=== PATIENT | male | born 1945 | race Caucasian/White ===

== ENCOUNTER 2019-08-15 01:04 | Emergency (ER) | payer MEDICARE, SELFPAY ==
--- NOTE | 2019-08-15 01:14 | ED_ITS ---
Entered by Yelena Horton, acting as scribe for HPI - General Adult General: Chief complaint: Skin/Abscess/Foreign Body Stated complaint: PAINFUL RASH Time Seen by Provider: 08/15/19 01:13 Source: patient Mode of arrival: ambulatory Limitations: no limitations History of Present Illness: HPI narrative: Kristopher is a very nice 74-year-old male who comes in complaining of a rash to his upper chest. Is been present for about 2 days. He describes it is painful and itching. Patient states it could be something he is come in contact with but he is unaware of what that could be for certain. He denies any fevers or chills, nausea vomiting but he states that rash is painful and itching. It is located on both sides of his chest. MD complaint: rash Onset (ago): day(s) (yesterday) Location: neck and chest Radiation: non-radiation Severity: moderate Pain Consistency: constant Relieving factors: none Exacerbating factors: none Associated symptoms: Reports no associated symptoms; Deny chest pain, confusion, diaphoresis, dyspnea, headache(s), malaise, nausea, palpitations, syncope or vomiting Treatments prior to arrival: none Review of Systems General: Reports: other (negative unless marked) Const: Denies: fever, chills, body aches, fatigue, malaise or diaphoresis Eyes: Denies: change in vision or blurry vision ENMT: Denies: throat pain, painful swallowing, hoarseness, ear pain, ear discharge, Change in hearing or nasal discharge Card: Denies: chest pain, palpitations, irregular heart rhythm, syncope, pre- syncope, shortness of breath on exertion or shortness of breath when lying down Resp: Denies: shortness of breath, productive cough, non-productive cough, wheezing, coughing up blood or chest congestion GI: Denies: abdominal pain, nausea, vomiting, vomiting blood, coffee grounds in vomit, diarrhea, constipation, cramping, blood in stool or black tarry stool : Denies: flank pain, difficulty urinating, painful urination, urinary frequency, urinary urgency, decreased urine ouput, urinary incontinence or blood in urine Musc: Denies: neck pain, back pain, extremity pain, extremity swelling, joint pain, joint swelling, joint warmth or joint stiffness Neuro: Denies: headache, numbness in extremities, weakness in extremities, changes in sensation, lack of coordination, difficulty walking, dizziness, vertigo or confusion Endo: Denies: excessive thirst, tired all the time, cold intolerance, excessive sweating, flushing or hot flashes Nick/Lymph: Denies: easy bruising, easy bleeding, petechiae or enlarged lymph nodes All/Imm: Denies: hives, throat swelling, tongue swelling, facial swelling or acute wheezing PFSH ED PFSH: Statuses (acute, chronic, etc) shown below reflect problem list status as previously entered and may not be historically accurate Medical History History of multiple sclerosis (Acute) Social History Smoking and tobacco status: former smoker Physical Exam Const: COMMON NORMALS: no apparent distress, oriented x3, no limitations, healthy appearing and well nourished EXAM LIMITATIONS: no altered mental status GENERAL APPEARANCE: cooperative, well kempt and well developed ORIENTATION/CONSCIOUSNESS: Yes awake HENMT: COMMON NORMALS: normocephalic, head/scalp atraumatic, hearing grossly normal bilaterally, external ears normal, EAC's normal, external nose normal and moist oral mucous membranes HEAD & SCALP: normal to inspection, normocephalic and atraumatic FACE & SINUS: normal facial exam and face symmetric NOSE: external nose normal and nares normal EXTERNAL EAR: Yes external ears normal EXTERNAL AUDITORY CANAL: EAC's normal MOUTH: oral and palatal mucosa normal and tongue normal Eye: COMMON NORMALS: PERRL, EOMs intact bilaterally, conjunctivae normal and no scleral icterus GENERAL EYE: normal appearance of both eyes and normal light reflex CONJUNCTIVA: Yes conjunctivae normal SCLERA: sclerae normal CORNEA: Yes corneas normal PUPIL: Yes PERRL DIRECT OPHTHALMOSCOPY: Yes normal light reflex Neck/C-Spine: COMMON NORMALS: full ROM, no lymphadenopathy, supple, no meningeal signs and no JVD GENERAL: Yes normal visual inspection and Yes trachea midline CERVICAL SPINE: Yes cervical ROM normal Chest: COMMONS NORMALS: inspection of chest normal and palpation of chest normal Resp: COMMON NORMALS: normal respiratory effort, no retractions, no use of accessory muscles and clear to auscultation bilaterally EFFORT & INSPECTION: Yes able to speak in complete sentences AUSCULTATION: clear to auscultation bilaterally Cardio: COMMON NORMALS: no JVD, regular rate, regular rhythm, S1 normal heart sound, S2 normal heart sound, no gallops, no clicks, no murmurs and no rub JUGULAR VENOUS DISTENTION: no JVD RATE: regular rate RHYTHM: regular rhythm HEART SOUNDS: S1 normal and S2 normal GI: COMMON NORMALS: soft to palpation, non-tender, no hepatosplenomegaly and no masses INSPECTION: Yes normal to inspection PALPATION: Yes soft and Yes no hepatosplenomegaly : COMMON NORMALS: Yes no CVA tenderness BLADDER/KIDNEY EXAM: Yes no CVA tenderness Back/Pelvis: COMMON NORMALS: no CVA tenderness, thoracic and lumbar spine normal to inspection, no thoracic nor lumbar tenderness and thoraco-lumbar ROM normal Extremity: COMMON NORMALS: normal to inspection, full ROM, normal capillary refill, no joint enlargement, no clubbing, cyanosis or edema and no calf tenderness Neuro: COMMON NORMALS: oriented x3, CN's II-XII intact bilaterally, moves all extremities, no focal motor deficits and no sensory deficits noted MENINGEAL SIGNS: Yes no meningeal signs Psych: COMMON NORMALS: mental status grossly normal, thought process normal, cooperative, affect normal, speech normal and activity/motor behavior normal APPEARANCE: Yes well kempt SPEECH: Yes normal speech THOUGHT PROCESS: normal thought process Skin: COMMON NORMALS: no jaundice, no petechiae and no mottling GENERAL SKIN EXAM: other (Erythema versus [place] area to bilateral upper chest. No petechiae or purpura.) Course Vital Signs: Vital signs: Vital Signs Temperature 97.5 F L 08/15/19 01:15 Pulse Rate 49 L 08/15/19 01:15 Respiratory Rate 16 08/15/19 01:15 Blood Pressure 138/70 08/15/19 01:34 Pulse Oximetry 98 08/15/19 01:15 MDM - General Adult MDM Narrative: Medical decision making narrative: Kristopher comes in with a rash to his anterior chest that could be [place] area but also could be cellulitis. It is blotchy and blanches but causes discomfort and itching. I will treat empirically for infection as well as allergic reaction. The patient agrees to return should his symptoms change or worsen. Discharge Plan Discharge Patient Disposition: Home, Self-Care Clinical Impression: Cellulitis Qualifiers: Site of cellulitis: trunk Site of cellulitis of trunk: chest wall Qualified Code(s): L03.313 - Cellulitis of chest wall Contact dermatitis Qualifiers: Contact dermatitis type: unspecified Contact dermatitis trigger: unspecified trigger Qualified Code(s): L25.9 - Unspecified contact dermatitis, unspecified cause Condition: Stable Prescriptions: New Benadryl 25 mg capsule 25 mg PO Q6H PRN (Reason: allergic reaction) 5 Days Qty: 30 RF: 0 Pepcid 40 mg tablet 40 mg PO BID 5 Days Qty: 10 RF: 0 Cleocin HCl 150 mg capsule 300 mg PO Q6H 10 Days Qty: 80 RF: 0 No Action atorvastatin 10 mg tablet 10 mg PO DAILY RF: 0 sertraline 100 mg tablet 100 mg PO DAILY RF: 0 baclofen 10 mg tablet 10 mg PO DAILY RF: 0 memantine 10 mg tablet 10 mg PO DAILY RF: 0 Discharge Orders: Discharge Order (Routine); Ordered 08/15/19 Ordered By: Marielle Fleming Referrals: Parmjit Sanchez MD [Primary Care Provider] - 1-3 days Discharge Diet: Usual diet Discharge Activity: Increase activity as tolerated Patient Instructions: Allergic Reaction, Urticaria (ED), Cellulitis (ED) Activity Restrictions/Additional Instructions: Please return to the ER immediately for any of the signs or symptoms listed on your discharge instruction sheets, worsening/changing of your symptoms, you are not getting better as quickly as expected, or for ANY other cause or concerns. Take medications as directed. Return to the ER for any worsening of your symptoms or for any other cause for concern. Discharge Date/Time: 08/15/19 01:37 Coding Level of Care Code ED Packaging Associate for Chg Fwd Exam Problem Focused The documentation recorded by the Clifford corbin Bridget Annette, accurately reflects the service I personally performed and the decisions made by Bernadette daley Eli N Aug 15, 2019 01:04
[2019-08-15 01:15] VITALS: BP 133/70; PULSE 49; RESP 16; TEMP 36.4; O2SAT 98; BMI 20.3
[2019-08-15] MEDS: predniSONE 20 mg Tablet 40 MG PO (01:33)
[2019-08-15] MEDS: clindamycin 150 mg Capsule 300 MG PO (01:33)
[2019-08-15] MEDS: famotidine 20 mg Tablet 40 MG PO (01:33)
[2019-08-15] MEDS: diphenhydrAMINE 50 mg Capsule PO (01:33)
[2019-08-15 01:34] VITALS: BP 138/70
== END 2019-08-15 01:37 | disposition home or self-care (01) ==
PROVIDERS: Emergency Provider Emergency Medicine; Family Provider Family Medicine; PCP Family Medicine
DX: L03.313 Cellulitis of chest wall (principal); L25.9 Unspecified contact dermatitis, unspecified cause; G35 Multiple sclerosis; Z87.891 Personal history of nicotine dependence
CPT/HCPCS: 99281; J7512; Q0163

== ENCOUNTER 2020-02-17 22:54 | Observation (INO) | payer MEDICARE, SELFPAY ==
[2020-02-17 23:00] VITALS: BP 119/75; PULSE 88; RESP 18; TEMP 36.6; O2SAT 97; BMI 19.5
--- NOTE | 2020-02-17 23:27 | ED_ITS ---
Documented by User: [email or web address] Mao 02/18/20 04:14 HPI - Fall General: Chief Complaint: Fall Stated Complaint: BACK PAIN POST FALL Time Seen by Provider: 02/17/20 23:26 History of Present Illness: HPI Narrative: Patient is a 74-year-old male who comes to the ED via EMS after having a fall. Past medical history of GERD, asthma, MS and hyperlipidemia and impairment cognitive dysfunction. Patient states that he tripped and hit his right shoulder on table. Denies any pain currently. Patient appears to be a poor historian and is brief and giving a lot of no answers. He appears to have an altered mental status and is confused. Patient denies head injury, loss of consciousness, abdominal pain, nausea/vomiting, bladder or bowel symptoms. Associated symptoms-after fall: Denies abdominal pain, chest pain, headache(s), hematuria or neck pain Review of Systems Narrative: Patient denies any other symptoms. Const: Reports: other (Fall); Denies: fever(s), chills or fatigue Eyes: Denies: change in vision or eye discomfort ENMT: Denies: throat pain, odynophagia, nasal discharge or nasal congestion Card: Denies: chest pain, palpitations, edema, swelling of feet/ankles, dyspnea on exertion or orthopnea Resp: Denies: dyspnea, productive cough or non-productive cough GI: Denies: abdominal pain, nausea, vomiting, diarrhea, constipation or hematochezia : Denies: flank pain, difficulty urinating, dysuria or hematuria Musc: Denies: neck pain, back pain or extremity swelling Skin/Breast: Denies: rash or new lesions Neuro: Denies: headache(s), numbness in extremities or weakness in extremities PFSH ED PFSH: Medical History Asthma Cancer of sebaceous glands Chalazion Dysuria Esophageal reflux Gastroesophageal reflux disease Glaucoma History of multiple sclerosis Hypercholesterolemia Hyperlipidemia Impairment of cognitive function Multiple sclerosis Pyoderma Sacroiliitis Viral warts Family History Other CAD (coronary artery disease) Cancer Diabetes Denies family history of Clotting disorder Dementia Hyperlipidemia Psychiatric illness Chronic kidney disease (CKD) Suicide Anesthesia complication Bleeding disorder Family history of premature coronary artery disease Lung disease Hypertension Stroke Social History Smoking and tobacco status: former smoker Physical Exam Narrative: EXAM NARRATIVE: Patient is a 74-year-old male that is lying in the bed comfortably when I enter the room. He currently smells of urine. He is in no acute distress or pain but he does appear very frail. After asking him questions he does appear to have some confusion and is unable to answer some of my orientation questions. Const: COMMON NORMALS: alert EXAM LIMITATIONS: altered mental status (Patient was unable to perform some of my directions during physical exam and was not able to answer some questions.) GENERAL APPEARANCE: cooperative and frail appearing NUTRITIONAL APPEARANCE: cachectic ORIENTATION/CONSCIOUSNESS: Yes oriented to person HENMT: COMMON NORMALS: normocephalic HEAD & SCALP: normocephalic MOUTH: Normal oral and palatal mucosa present THROAT: posterior oropharynx normal and uvula midline Eye: COMMON NORMALS: Equal, round and reactive pupils present PUPIL: Yes Equal, round and reactive pupils present Neck/C-Spine: COMMON NORMALS: supple GENERAL: Yes normal visual inspection Resp: COMMON NORMALS: normal respiratory effort, No retractions, No use of accessory muscles and clear to auscultation bilaterally AUSCULTATION: clear to auscultation bilaterally Cardio: COMMON NORMALS: regular rate, regular rhythm, S1 normal heart sound present, S2 normal heart sound present, No gallops present (Cardio), No clicks present (Cardio), No murmurs present (Cardio) and Peripheral pulses 2+ throughout RATE: regular rate RHYTHM: regular rhythm HEART SOUNDS: S1 normal heart sound present and S2 normal heart sound present PERIPHERAL PULSES: Peripheral pulses 2+ throughout GI: COMMON NORMALS: Normal to inspection, nondistended, normoactive bowel sounds present, Soft to palpation, non-tender and no masses PALPATION: Yes Soft to palpation : COMMON NORMALS: Yes no CVA tenderness BLADDER/KIDNEY EXAM: Yes no CVA tenderness Back/Pelvis: COMMON NORMALS: no CVA tenderness Neuro: COMMON NORMALS: CN's II-XII intact bilaterally, moves all extremities, no focal motor deficits and no sensory deficits noted SENSORIUM/ORIENTATION: Yes alert, Yes oriented to person, Yes Orientation impaired (Patient is alert and oriented to person but is not oriented to place or time currently. He was unable to answer any time or place questions.) and Yes other (Patient also struggled to perform some physical exam test such as mhwsyb-jn-twva test. He was able to perform it with his right arm but when I told him to perform test with his left hand he touched my finger and did not touch his nose after telling him to do so repeatedly.) COORDINATION/BALANCE: No ahxecy-ka-fvjr test normal (Patient was able to perform lkxkov-fq-wtex test with right hand, but when a) SENSORY EXAM: Yes extremities (intact) MOTOR EXAM: 5/5 motor strength present throughout COORDINATION: dnxtnn-dn-xvmj test abnormal (Patient was able to perform ozljnq-ih-jlwk test with right hand, but when a) OTHER: Patient struggled following some of my directions during the neurological exam. He appeared confused. Skin: GENERAL SKIN EXAM: dry skin Course ED course: I tried contacting his via her preferred contact number to discuss patient's past health issues and current fall. She did not answer the phone. Vital Signs: Vital signs: Vital Signs Temperature 97.8 F 02/17/20 23:00 Pulse Rate 64 02/18/20 03:16 Respiratory Rate 18 02/18/20 03:16 Blood Pressure 105/81 02/18/20 03:16 Pulse Oximetry 95 02/18/20 03:16 MDM - Fall MDM Narrative: Medical decision making narrative: Patient care is being handed over to Dr. Fleming. He will now be taking over patient care and management. Lab Data: Attestation: I reviewed the patient's lab results. Labs: Lab Results 02/17/20 02/17/20 02/17/20 Range/Units 00:12 00:12 00:12 WBC 18.5 H (4.0-10.0) 10^3/ uL RBC 5.07 (4.1-5.3) 10^6/u L Hgb 15.2 (11.7-16.6) g/dL Hct 48.7 (42.0-52.0) % MCV 96.1 H (80-94) fL MCH 30.0 (28.0-34.0) pg MCHC 31.2 (30.0-36.0) g/dL RDW 13.2 (12.1-15.1) % Plt Count 141 (130-400) 10^3/c mm MPV 11.4 H (7.4-10.4) fL Neut % (Auto) 89.0 % Lymph % (Auto) 2.9 % [place] % (Auto) 7.3 % Eos % (Auto) 0.0 % Baso % (Auto) 0.3 % Neut # (Auto) 16.44 H (1.8-7.7) 10^3/u L Lymph # (Auto) 0.5 L (0.8-4.8) 10^3/u L [place] # (Auto) 1.4 H (0.2-0.9) 10^3/u L Eos # (Auto) 0.0 (0.0-0.8) 10^3/u L Baso # (Auto) 0.1 (0.0-0.1) 10^3/u L Nucleated RBC % (a uto) 0 % Nucleated RBCs # 0.0 /100WBC Specimen Type Sample Site ABG pH (7.35-7.45) ABG pCO2 (35-45) mmHg ABG pO2 (80.0-100.0) mmH g ABG HCO3 (22-26) mmol/L ABG O2 Saturation ABG Base Excess (-2.0-2.0) mmol/ L Adam Test A-a O2 Gradient (5-10) mmHg Hematocrit (42-52) % Hgb O2 Saturation (95-100) % Carboxyhemoglobin (0.4-20.1) %THgb Methemoglobin (0.4-1.5) % Total Hemoglobin (14-18) g/dL Ionized Calcium (1.1-1.4) mmol/L O2 Delivery Device FiO2 % Ssis Architect ID Sodium 141 (136-145) mmol/L Potassium 3.9 (3.5-5.1) mmol/L Chloride 103 (98-107) mmol/L Carbon Dioxide 28 (22-29) mmol/L Anion Gap 13.9 (5-19) BUN 24 H (8-23) mg/dL Creatinine 1.0 (0.7-1.2) mg/dL GFR Calculation Not Reportable Glucose 147 H (65-115) mg/dL Calculated Osmolal ity 291 (285-295) mOsm/k g Lactic Acid 2.2 (0.5-2.2) mmol/L Calcium 8.7 (8.5-10.5) mg/dL Total Bilirubin 0.8 (0.15-1.2) mg/dL AST 23 (0-40) U/L ALT 15 (0-41) U/L Alkaline Phosphata se 75 (40-130) IU/L Troponin T Baselin e (0-15) ng/L Troponin T 120 Min [place] (0-15) ng/L Delta Troponin T (0-10) ABS# Total Protein 7.4 (6.6-8.7) g/dL Albumin 3.7 (3.5-5.2) g/dL Globulin 3.7 (1.3-4.6) g/dL Ethyl Alcohol < 10 (0-10) mg/dL 02/17/20 02/17/20 02/18/20 Range/Units 00:12 00:33 01:40 WBC (4.0-10.0) 10^3/ uL RBC (4.1-5.3) 10^6/u L Hgb (11.7-16.6) g/dL Hct (42.0-52.0) % MCV (80-94) fL MCH (28.0-34.0) pg MCHC (30.0-36.0) g/dL RDW (12.1-15.1) % Plt Count (130-400) 10^3/c mm MPV (7.4-10.4) fL Neut % (Auto) % Lymph % (Auto) % [place] % (Auto) % Eos % (Auto) % Baso % (Auto) % Neut # (Auto) (1.8-7.7) 10^3/u L Lymph # (Auto) (0.8-4.8) 10^3/u L [place] # (Auto) (0.2-0.9) 10^3/u L Eos # (Auto) (0.0-0.8) 10^3/u L Baso # (Auto) (0.0-0.1) 10^3/u L Nucleated RBC % (a uto) % Nucleated RBCs # /100WBC Specimen Type Arterial Sample Site Brachial, right ABG pH 7.43 (7.35-7.45) ABG pCO2 38.1 (35-45) mmHg ABG pO2 70.1 L (80.0-100.0) mmH g ABG HCO3 25.2 (22-26) mmol/L ABG O2 Saturation 95.4 ABG Base Excess 1.0 (-2.0-2.0) mmol/ L Adam Test N/a A-a O2 Gradient 4.2 L (5-10) mmHg Hematocrit 47.2 (42-52) % Hgb O2 Saturation 93.6 L (95-100) % Carboxyhemoglobin 1.1 (0.4-20.1) %THgb Methemoglobin 0.9 (0.4-1.5) % Total Hemoglobin 15.4 (14-18) g/dL Ionized Calcium 1.2 (1.1-1.4) mmol/L O2 Delivery Device Room air FiO2 21.0 % Ssis Architect ID Darius Sodium 143.0 (136-145) mmol/L Potassium 3.9 (3.5-5.1) mmol/L Chloride (98-107) mmol/L Carbon Dioxide (22-29) mmol/L Anion Gap (5-19) BUN (8-23) mg/dL Creatinine (0.7-1.2) mg/dL GFR Calculation Glucose 141.0 H (65-115) mg/dL Calculated Osmolal ity (285-295) mOsm/k g Lactic Acid (0.5-2.2) mmol/L Calcium (8.5-10.5) mg/dL Total Bilirubin (0.15-1.2) mg/dL AST (0-40) U/L ALT (0-41) U/L Alkaline Phosphata se (40-130) IU/L Troponin T Baselin e 15 (0-15) ng/L Troponin T 120 Min [place] 14.77 (0-15) ng/L Delta Troponin T -0.23 L (0-10) ABS# Total Protein (6.6-8.7) g/dL Albumin (3.5-5.2) g/dL Globulin (1.3-4.6) g/dL Ethyl Alcohol (0-10) mg/dL Imaging Data^: CT Head: Attestation: I personally reviewed and interpreted this imaging study as follows: Radiologist's impression: [address] [address] [address] Scan Report Signed Patient: Kristopher Linda Unit #: [id number] : 1945 [facility]#:[id number] Age/Sex: 74 / M ADM Date: 02/17/20 Loc: ER Room/Bed: Attending Dr: Ordering Provider/Ordering MD: Santana Valdovinos Date of Service: 02/17/20 Procedure(s): CT head wo con* [id number] Accession Number(s): [id number] Report Number: [id number] PROCEDURE INFORMATION: Exam: CT Head Without Contrast Exam date and time: 02/17/2020 11:45 PM Age: 74 years old Clinical indication: Altered mental status/memory loss; Additional info: Fall with AMS TECHNIQUE: Imaging protocol: Computed tomography of the head without contrast. Radiation optimization: All CT scans at this facility use at least one of these dose optimization techniques: automated exposure control; mA and/or kV adjustment per patient size (includes targeted exams where dose is matched to clinical indication); or iterative reconstruction. COMPARISON: No relevant prior studies available. RADIATION DOSE METRICS: Total DLP (mGy-cm): 1379.96 FINDINGS: Brain: No acute intracranial hemorrhage or mass effect. There is decreased attenuation in the periventricular white matter, likely from microvascular disease. Areas of chronic encephalomalacia in the inferior frontal lobes bilaterally. These likely represent sequela of infarcts or other prior/remote brain injury. No definite acute infarct by CT. MRI could be more sensitive/specific for detection, as clinically directed. Ventricles: Ventricle size is normal for age. Bones/joints: No definite acute skull fracture. Sinuses: Included paranasal sinuses are essentially clear. Mastoid air cells: No significant acute finding. CT/CT head wo con* [id number] IMPRESSION: 1. No acute intracranial hemorrhage or mass effect. 2. Changes of microvascular disease. 3. Areas of chronic encephalomalacia in the inferior frontal lobes bilaterally. 4. No definite acute infarct by CT, see above. 5. Other findings discussed above. Radiation Dose CTDIVOL = (mGy): DLP = 1379.96 (mGy-cm) Dictated By: Fredrick Goldberg MD Signed By: Fredrick Goldberg MD Signed Date/Time: 02/18/20254 DD/ 2 CXR: Attestation: I personally reviewed and interpreted this imaging study as follows: My impression: No pneumonia or lung infiltrates seen. Patient's heart appears enlarged. Pending final radiology report. Other CT: Attestation: I personally reviewed and interpreted this imaging study as fo llows: Radiologist's impression: [facility] [address] [facility] [place] [address] CT Scan Report Signed Patient: Kristopher Linda Unit #: [id number] : 1945 Age/Sex: 74 / M ADM Date: 02/17/20 Loc: ER Room/Bed: Attending Dr: Ordering Provider/Ordering MD: Santana Valdovinos Date of Service: 02/18/20 Procedure(s): CT chest abd pel w con* Accession Number(s): [id number] Report Number: [id number] PROCEDURE INFORMATION: Exam: CT Chest With Contrast Exam date and time: 02/18/2020 1:15 AM Age: 74 years old Clinical indication: Abdominal pain; Generalized; Chest pain; Type not specified; Additional info: AMS TECHNIQUE: Imaging protocol: Computed tomography of the chest with intravenous contrast. Radiation optimization: All CT scans at this facility use at least one of these dose optimization techniques: automated exposure control; mA and/or kV adjustment per patient size (includes targeted exams where dose is matched to clinical indication); or iterative reconstruction. Contrast material: VISI; Contrast volume: 75 ml; Contrast route: INTRAVENOUS (IV); COMPARISON: No relevant prior studies available. Correlation to chest radiograph from December 2019. RADIATION DOSE METRICS: Total DLP (mGy-cm): 1387.6 FINDINGS: Lungs: Coarsening of pulmonary interstitial markings bilaterally with basilar predominance. Pleural space: Unremarkable. No pneumothorax. No pleural effusion. Heart: Coronary calcifications are noted. Mediastinal space: Moderate to large hiatal hernia. Aorta: Unremarkable. No aortic aneurysm. Lymph nodes: Unremarkable. No enlarged lymph nodes. Bones/joints: Mild compression of T12 suspected to be acute. Healed or healing rib fractures. Soft tissues: Unremarkable. IMPRESSION: Mild compression of T12 vertebral body suspected to be acute. Pulmonary interstitial disease is likely chronic. PROCEDURE INFORMATION: Exam: CT Abdomen And Pelvis With Contrast Exam date and time: 02/18/2020 1:15 AM Age: 74 years old Clinical indication: Abdominal pain; Generalized; Chest pain; Type not specified; Additional info: AMS TECHNIQUE: Imaging protocol: Computed tomography of the abdomen and pelvis with intravenous contrast. Radiation optimization: All CT scans at this facility use at least one of these dose optimization techniques: automated exposure control; mA and/or kV adjustment per patient size (includes targeted exams where dose is matched to clinical indication); or iterative reconstruction. Contrast material: VISI; Contrast volume: 75 ml; Contrast route: INTRAVENOUS (IV); COMPARISON: No relevant prior studies available. RADIATION DOSE METRICS: Total DLP (mGy-cm): 1387.6 FINDINGS: Liver: Normal. No mass. Gallbladder and bile ducts: Normal. No calcified stones. No ductal dilation. Pancreas: Normal. No ductal dilation. Spleen: Normal. No splenomegaly. Adrenals: Normal. No mass. Kidneys and ureters: Fluid containing structures at renal sinuses are favored to represent cysts although collecting system dilation is difficult to exclude. Benign cortical cysts are also noted with largest measuring approximately 4 cm. Stomach and bowel: Unremarkable. No obstruction. No mucosal thickening. Appendix: No evidence of appendicitis. Intraperitoneal space: Unremarkable. No free air. No significant fluid collection. Vasculature: Unremarkable. No abdominal aortic aneurysm. Lymph nodes: Unremarkable. No enlarged lymph nodes. Bladder: Multilobulated fluid containing structure arising from pelvis likely represents severely distended urinary bladder with diverticular changes. Reproductive: Unremarkable as visualized. Bones/joints: No acute fracture. Soft tissues: Unremarkable. CT/CT chest abd pel w con* IMPRESSION: Severe bladder distension suggested with multiple diverticuli. Other cystic abnormalities would be difficult to exclude in this setting although are considered less likely. Radiation Dose CTDIVOL = (mGy): DLP = 1387.6 1387.6 (mGy-cm) Dictated By: Davin Austin MD Signed By: Davin Austin MD Signed Date/Time: 02/18/20308 DD/ 7 EKG Data^: EKG 1: Attestation: I personally reviewed and interpreted this EKG as follows: EKG interpretation date: 02/18/20 Interpretation: Normal sinus rhythm, 86 bpm, ST segment depression seen in leads V3, V4 and V5. EKG 2: Attestation: I personally reviewed and interpreted this EKG as follows: EKG interpretation date: 02/18/20 Interpretation: Normal sinus rhythm, 72 bpm, previous ST segment depression seen on previous EKG has resolved. No other acute findings on ECG. Discharge Plan Discharge Prescriptions: No Action baclofen 10 mg tablet 10 mg PO TID Qty: 270 RF: 1 dalfampridine [Ampyra] 10 mg tablet extended release 12 hr 10 mg PO BID Qty: 60 RF: 3 memantine 10 mg tablet 10 mg PO BID Qty: 180 RF: 1 sertraline 100 mg tablet 100 mg PO DAILY Qty: 90 RF: 1 glatiramer [Copaxone] 40 mg/mL syringe 40 mg SUBCUT .THREE TIMES WEEKLY Qty: 12 RF: 4 omeprazole 20 mg capsule,delayed release(DR/EC) 20 mg PO DAILY Qty: 90 RF: 3 atorvastatin 10 mg tablet 10 mg PO DAILY RF: 0 Sign Out Sign Out Data: Patient Sign Out occurred on 02/18/20 at 04:30. Patient's care was discussed, and care was transferred from to Marielle Fleming. Coding Level of Care Code ED Insole Rasper for Chg Fwd Exam Comprehensive Documented by User: Marielle Fleming 02/18/20 04:35 HPI - Fall General: Chief Complaint: Fall Stated Complaint: BACK PAIN POST FALL Time Seen by Provider: 02/17/20 23:26 PFSH ED PFSH: Medical History Asthma Cancer of sebaceous glands Chalazion Dysuria Esophageal reflux Gastroesophageal reflux disease Glaucoma History of multiple sclerosis Hypercholesterolemia Hyperlipidemia Impairment of cognitive function Multiple sclerosis Pyoderma Sacroiliitis Viral warts Family History Other CAD (coronary artery disease) Cancer Diabetes Denies family history of Clotting disorder Dementia Hyperlipidemia Psychiatric illness Chronic kidney disease (CKD) Suicide Anesthesia complication Bleeding disorder Family history of premature coronary artery disease Lung disease Hypertension Stroke Social History Smoking and tobacco status: former smoker Course Vital Signs: Vital signs: Vital Signs Temperature 97.8 F 02/17/20 23:00 Pulse Rate 64 02/18/20 03:16 Respiratory Rate 18 02/18/20 03:16 Blood Pressure 105/81 02/18/20 03:16 Pulse Oximetry 95 02/18/20 03:16 MDM - Fall Lab Data: Labs: Lab Results 02/17/20 02/17/20 02/17/20 Range/Units 00:12 00:12 00:12 WBC 18.5 H (4.0-10.0) 10^3/ uL RBC 5.07 (4.1-5.3) 10^6/u L Hgb 15.2 (11.7-16.6) g/dL Hct 48.7 (42.0-52.0) % MCV 96.1 H (80-94) fL MCH 30.0 (28.0-34.0) pg MCHC 31.2 (30.0-36.0) g/dL RDW 13.2 (12.1-15.1) % Plt Count 141 (130-400) 10^3/c mm MPV 11.4 H (7.4-10.4) fL Neut % (Auto) 89.0 % Lymph % (Auto) 2.9 % [place] % (Auto) 7.3 % Eos % (Auto) 0.0 % Baso % (Auto) 0.3 % Neut # (Auto) 16.44 H (1.8-7.7) 10^3/u L Lymph # (Auto) 0.5 L (0.8-4.8) 10^3/u L [place] # (Auto) 1.4 H (0.2-0.9) 10^3/u L Eos # (Auto) 0.0 (0.0-0.8) 10^3/u L Baso # (Auto) 0.1 (0.0-0.1) 10^3/u L Nucleated RBC % (a uto) 0 % Nucleated RBCs # 0.0 /100WBC Specimen Type Sample Site ABG pH (7.35-7.45) ABG pCO2 (35-45) mmHg ABG pO2 (80.0-100.0) mmH g ABG HCO3 (22-26) mmol/L ABG O2 Saturation ABG Base Excess (-2.0-2.0) mmol/ L Adam Test A-a O2 Gradient (5-10) mmHg Hematocrit (42-52) % Hgb O2 Saturation (95-100) % Carboxyhemoglobin (0.4-20.1) %THgb Methemoglobin (0.4-1.5) % Total Hemoglobin (14-18) g/dL Ionized Calcium (1.1-1.4) mmol/L O2 Delivery Device FiO2 % Ssis Architect ID Sodium 141 (136-145) mmol/L Potassium 3.9 (3.5-5.1) mmol/L Chloride 103 (98-107) mmol/L Carbon Dioxide 28 (22-29) mmol/L Anion Gap 13.9 (5-19) BUN 24 H (8-23) mg/dL Creatinine 1.0 (0.7-1.2) mg/dL GFR Calculation Not Reportable Glucose 147 H (65-115) mg/dL Calculated Osmolal ity 291 (285-295) mOsm/k g Lactic Acid 2.2 (0.5-2.2) mmol/L Calcium 8.7 (8.5-10.5) mg/dL Total Bilirubin 0.8 (0.15-1.2) mg/dL AST 23 (0-40) U/L ALT 15 (0-41) U/L Alkaline Phosphata se 75 (40-130) IU/L Troponin T Baselin e (0-15) ng/L Troponin T 120 Min [place] (0-15) ng/L Delta Troponin T (0-10) ABS# Total Protein 7.4 (6.6-8.7) g/dL Albumin 3.7 (3.5-5.2) g/dL Globulin 3.7 (1.3-4.6) g/dL Ethyl Alcohol < 10 (0-10) mg/dL 02/17/20 02/17/20 02/18/20 Range/Units 00:12 00:33 01:40 WBC (4.0-10.0) 10^3/ uL RBC (4.1-5.3) 10^6/u L Hgb (11.7-16.6) g/dL Hct (42.0-52.0) % MCV (80-94) fL MCH (28.0-34.0) pg MCHC (30.0-36.0) g/dL RDW (12.1-15.1) % Plt Count (130-400) 10^3/c mm MPV (7.4-10.4) fL Neut % (Auto) % Lymph % (Auto) % [place] % (Auto) % Eos % (Auto) % Baso % (Auto) % Neut # (Auto) (1.8-7.7) 10^3/u L Lymph # (Auto) (0.8-4.8) 10^3/u L [place] # (Auto) (0.2-0.9) 10^3/u L Eos # (Auto) (0.0-0.8) 10^3/u L Baso # (Auto) (0.0-0.1) 10^3/u L Nucleated RBC % (a uto) % Nucleated RBCs # /100WBC Specimen Type Arterial Sample Site Brachial, right ABG pH 7.43 (7.35-7.45) ABG pCO2 38.1 (35-45) mmHg ABG pO2 70.1 L (80.0-100.0) mmH g ABG HCO3 25.2 (22-26) mmol/L ABG O2 Saturation 95.4 ABG Base Excess 1.0 (-2.0-2.0) mmol/ L Adam Test N/a A-a O2 Gradient 4.2 L (5-10) mmHg Hematocrit 47.2 (42-52) % Hgb O2 Saturation 93.6 L (95-100) % Carboxyhemoglobin 1.1 (0.4-20.1) %THgb Methemoglobin 0.9 (0.4-1.5) % Total Hemoglobin 15.4 (14-18) g/dL Ionized Calcium 1.2 (1.1-1.4) mmol/L O2 Delivery Device Room air FiO2 21.0 % Ssis Architect ID Darius Sodium 143.0 (136-145) mmol/L Potassium 3.9 (3.5-5.1) mmol/L Chloride (98-107) mmol/L Carbon Dioxide (22-29) mmol/L Anion Gap (5-19) BUN (8-23) mg/dL Creatinine (0.7-1.2) mg/dL GFR Calculation Glucose 141.0 H (65-115) mg/dL Calculated Osmolal ity (285-295) mOsm/k g Lactic Acid (0.5-2.2) mmol/L Calcium (8.5-10.5) mg/dL Total Bilirubin (0.15-1.2) mg/dL AST (0-40) U/L ALT (0-41) U/L Alkaline Phosphata se (40-130) IU/L Troponin T Baselin e 15 (0-15) ng/L Troponin T 120 Min [place] 14.77 (0-15) ng/L Delta Troponin T -0.23 L (0-10) ABS# Total Protein (6.6-8.7) g/dL Albumin (3.5-5.2) g/dL Globulin (1.3-4.6) g/dL Ethyl Alcohol (0-10) mg/dL Discharge Plan Discharge Prescriptions: No Action baclofen 10 mg tablet 10 mg PO TID Qty: 270 RF: 1 dalfampridine [Ampyra] 10 mg tablet extended release 12 hr 10 mg PO BID Qty: 60 RF: 3 memantine 10 mg tablet 10 mg PO BID Qty: 180 RF: 1 sertraline 100 mg tablet 100 mg PO DAILY Qty: 90 RF: 1 glatiramer [Copaxone] 40 mg/mL syringe 40 mg SUBCUT .THREE TIMES WEEKLY Qty: 12 RF: 4 omeprazole 20 mg capsule,delayed release(DR/EC) 20 mg PO DAILY Qty: 90 RF: 3 atorvastatin 10 mg tablet 10 mg PO DAILY RF: 0 Sign Out Sign Out Data: Patient Sign Out occurred on 02/18/20 at 04:30. Patient's care was discussed, and care was transferred from to [facility]. Coding Level of Care Code ED Insole Rasper for Almaz Fwd Exam Comprehensive
--- NOTE | 2020-02-17 23:36 | CTR_ITS ---
PROCEDURE INFORMATION: Exam: CT Head Without Contrast Exam date and time: 02/17/2020 11:45 PM Age: 74 years old Clinical indication: Altered mental status/memory loss; Additional info: Fall with AMS TECHNIQUE: Imaging protocol: Computed tomography of the head without contrast. Radiation optimization: All CT scans at this facility use at least one of these dose optimization techniques: automated exposure control; mA and/or kV adjustment per patient size (includes targeted exams where dose is matched to clinical indication); or iterative reconstruction. COMPARISON: No relevant prior studies available. RADIATION DOSE METRICS: Total DLP (mGy-cm): 1379.96 FINDINGS: Brain: No acute intracranial hemorrhage or mass effect. There is decreased attenuation in the periventricular white matter, likely from microvascular disease. Areas of chronic encephalomalacia in the inferior frontal lobes bilaterally. These likely represent sequela of infarcts or other prior/remote brain injury. No definite acute infarct by CT. MRI could be more sensitive/specific for detection, as clinically directed. Ventricles: Ventricle size is normal for age. Bones/joints: No definite acute skull fracture. Sinuses: Included paranasal sinuses are essentially clear. Mastoid air cells: No significant acute finding. CT/CT head wo con* [id number] IMPRESSION: 1. No acute intracranial hemorrhage or mass effect. 2. Changes of microvascular disease. 3. Areas of chronic encephalomalacia in the inferior frontal lobes bilaterally. 4. No definite acute infarct by CT, see above. 5. Other findings discussed above. Radiation Dose CTDIVOL = (mGy): DLP = 1379.96 (mGy-cm)
--- NOTE | 2020-02-17 23:36 | ECG_ITS ---
[facility] Test Date: 2020-02-17 Pat Name: Kristopher Linda Department: Room: Gender: Male Tosser: : 1945 Requested By: Santana Valdovinos Order Number: [id number] Jacobson MD: Elizabeth Cade M.D. Measurements Intervals [place] Rate: 86 P: 94 DE: 151 QRS: 60 QRSD: 86 T: 47 QT: 350 QTc: 419 Interpretive Statements SINUS RHYTHM MODERATE ST DEPRESSION [0.05+ mV ST DEPRESSION] No previous ECG available for comparison Electronically Signed On 02-18-2020 12:43:36 CDT by Elizabeth Cade M.D. [id number]
--- NOTE | 2020-02-17 23:39 | XR_ITS ---
WS: [id number] PORTABLE CHEST HISTORY: fall with AMS COMPARISON: 12/17/2019 Quality of examination is significantly limited by rotation. Mild interstitial thickening at the lung bases. No pneumonia. No pleural effusion or pneumothorax. Cardiac size: Normal. Mediastinum/Aorta: Normal mediastinum. No osseous abnormality seen. XR/XR chest 1V portable [id number] IMPRESSION: Minimal interstitial thickening at the lung bases may be chronic. No pneumonia.
[2020-02-18] VITALS (12 sets, daily range): BP systolic 88–129; BP diastolic 50–89; PULSE 55–104; RESP 16–20; TEMP 36.7–37.1; O2SAT 94–100
[2020-02-18 00:35] LABS: Basophils # 0.1 10^3/uL (0.0-0.1); Basophils % 0.3 %; Hematocrit 48.7 % (42.0-52.0); Hemoglobin 15.2 g/dL (11.7-16.6); Lymphocytes # 0.5 10^3/uL (0.8-4.8); Lymphocytes % 2.9 %; Mean Corpuscular HGB Conc 31.2 g/dL (30.0-36.0); Mean Corpuscular Volume 96.1 fL (80-94); Mean Platelet Volume 11.4 fL (7.4-10.4); Monocytes # 1.4 10^3/uL (0.2-0.9); Monocytes % 7.3 %; Neutrophils # 16.44 10^3/uL (1.8-7.7); Nucleated Red Blood Cells % 0 %; Platelet Count 141 10^3/cmm (130-400); Red Blood Count 5.07 10^6/uL (4.1-5.3); Red Cell Distribution Width 13.2 % (12.1-15.1); White Blood Count 18.5 10^3/uL (4.0-10.0)
[2020-02-18 00:47] LABS: ABG PCO2 38.1 mmHg (35-45); ABG PH Result 7.43 (7.35-7.45); Alveolar-Arterial Oxygen Gradi 4.2 mmHg (5-10); Arterial Blood Gas Hematocrit 47.2 % (42-52); Blood Gas Operator Identificat JB; Blood Gas Sample Site Brachial, right; Blood Gas Sample Type Arterial; Carboxyhemoglobin 1.1 %THgb (0.4-20.1); HCO3 ABG 25.2 mmol/L (22-26); HGB O2 Sat 93.6 % (95-100); Ionized Calcium Level - ABG 1.2 mmol/L (1.1-1.4); Methemoglobin 0.9 % (0.4-1.5); Oxygen Device ROOM AIR; Oxygen Saturation ABG 95.4; PO2 ABG 70.1 mmHg (80.0-100.0); Potassium Level - ABG 3.9 mmol/L (3.5-5.0); Total Hemoglobin 15.4 g/dL (14-18)
[2020-02-18 00:56] LABS: Alanine Aminotransferase 15 U/L (0-41); Albumin Level 3.7 g/dL (3.5-5.2); Alkaline Phosphatase 75 IU/L (40-130); Anion Gap 13.9 (5-19); Aspartate Amino Transferase 23 U/L (0-40); Blood Urea Nitrogen 24 mg/dL (8-23); Calcium 8.7 mg/dL (8.5-10.5); Carbon Dioxide 28 mmol/L (22-29); Chloride 103 mmol/L (98-107); Globulin 3.7 g/dL (1.3-4.6); Glucose 147 mg/dL (65-115); Osmolality Calculated 291 mOsm/kg (285-295); Potassium 3.9 mmol/L (3.5-5.1); Sodium 141 mmol/L (136-145); Total Bilirubin 0.8 mg/dL (0.15-1.2); Total Protein 7.4 g/dL (6.6-8.7)
[2020-02-18 00:57] LABS: Lactic Sepsis W/Reflex 2.2 mmol/L (0.5-2.2)
[2020-02-18 00:59] LABS: Alcohol Level < 10 mg/dL (0-10); Troponin(5th) Baseline 15 ng/L (0-15)
--- NOTE | 2020-02-18 01:13 | CTR_ITS ---
PROCEDURE INFORMATION: Exam: CT Chest With Contrast Exam date and time: 02/18/2020 1:15 AM Age: 74 years old Clinical indication: Abdominal pain; Generalized; Chest pain; Type not specified; Additional info: AMS TECHNIQUE: Imaging protocol: Computed tomography of the chest with intravenous contrast. Radiation optimization: All CT scans at this facility use at least one of these dose optimization techniques: automated exposure control; mA and/or kV adjustment per patient size (includes targeted exams where dose is matched to clinical indication); or iterative reconstruction. Contrast material: VISI; Contrast volume: 75 ml; Contrast route: INTRAVENOUS (IV); COMPARISON: No relevant prior studies available. Correlation to chest radiograph from December 2019. RADIATION DOSE METRICS: Total DLP (mGy-cm): 1387.6 FINDINGS: Lungs: Coarsening of pulmonary interstitial markings bilaterally with basilar predominance. Pleural space: Unremarkable. No pneumothorax. No pleural effusion. Heart: Coronary calcifications are noted. Mediastinal space: Moderate to large hiatal hernia. Aorta: Unremarkable. No aortic aneurysm. Lymph nodes: Unremarkable. No enlarged lymph nodes. Bones/joints: Mild compression of T12 suspected to be acute. Healed or healing rib fractures. Soft tissues: Unremarkable. IMPRESSION: Mild compression of T12 vertebral body suspected to be acute. Pulmonary interstitial disease is likely chronic. PROCEDURE INFORMATION: Exam: CT Abdomen And Pelvis With Contrast Exam date and time: 02/18/2020 1:15 AM Age: 74 years old Clinical indication: Abdominal pain; Generalized; Chest pain; Type not specified; Additional info: AMS TECHNIQUE: Imaging protocol: Computed tomography of the abdomen and pelvis with intravenous contrast. Radiation optimization: All CT scans at this facility use at least one of these dose optimization techniques: automated exposure control; mA and/or kV adjustment per patient size (includes targeted exams where dose is matched to clinical indication); or iterative reconstruction. Contrast material: VISI; Contrast volume: 75 ml; Contrast route: INTRAVENOUS (IV); COMPARISON: No relevant prior studies available. RADIATION DOSE METRICS: Total DLP (mGy-cm): 1387.6 FINDINGS: Liver: Normal. No mass. Gallbladder and bile ducts: Normal. No calcified stones. No ductal dilation. Pancreas: Normal. No ductal dilation. Spleen: Normal. No splenomegaly. Adrenals: Normal. No mass. Kidneys and ureters: Fluid containing structures at renal sinuses are favored to represent cysts although collecting system dilation is difficult to exclude. Benign cortical cysts are also noted with largest measuring approximately 4 cm. Stomach and bowel: Unremarkable. No obstruction. No mucosal thickening. Appendix: No evidence of appendicitis. Intraperitoneal space: Unremarkable. No free air. No significant fluid collection. Vasculature: Unremarkable. No abdominal aortic aneurysm. Lymph nodes: Unremarkable. No enlarged lymph nodes. Bladder: Multilobulated fluid containing structure arising from pelvis likely represents severely distended urinary bladder with diverticular changes. Reproductive: Unremarkable as visualized. Bones/joints: No acute fracture. Soft tissues: Unremarkable. CT/CT chest abd pel w con* IMPRESSION: Severe bladder distension suggested with multiple diverticuli. Other cystic abnormalities would be difficult to exclude in this setting although are considered less likely. Radiation Dose CTDIVOL = (mGy): DLP = 1387.6~1387.6 (mGy-cm)
--- NOTE | 2020-02-18 01:36 | ECG_ITS ---
[facility] Test Date: 2020-02-18 Pat Name: Kristopher Linda Department: Room: Gender: Male Medical Technologist Chemistry: : 1945 Requested By: Santana Valdovinos Order Number: [id number] Jacobson MD: Elizabeth Cade M.D. Measurements Intervals [place] Rate: 72 P: 79 MN: 169 QRS: 45 QRSD: 84 T: 37 QT: 384 QTc: 421 Interpretive Statements SINUS RHYTHM Compared to ECG 02/17/2020 23:48:18 ST (T wave) deviation no longer present Electronically Signed On 02-18-2020 12:50:13 CDT by Elizabeth Cade M.D. [id number]
[2020-02-18] MEDS: sodium chloride 0.9% 1,000 ML 100 ML IV ×3 (02:00→19:35)
[2020-02-18 02:02] LABS: Reflex Lactate Order REFLEX LACTIC ORDERD
[2020-02-18 02:25] LABS: Troponin 5 2HR 14.77 ng/L (0-15)
[2020-02-18 02:40] LABS: Troponin 5 2HR Delta -0.23 ABS# (0-10)
[2020-02-18] MEDS: sodium chloride 0.9% 1,000 ML 999 ML IV ×2 (02:57→02:58)
[2020-02-18] MEDS: levofloxacin-dextrose 5 % 750 MG/150 ML PREMIX 100 MG IV (04:41)
[2020-02-18 04:59] LABS: Add Urine Microscopic? YES; Amphetamines Screen Urine Negative (Negative); Barbiturates Screen Urine Negative (Negative); Benzodiazepines Screen Urine Negative (Negative); Bilirubin Urine Neg (NEGATIVE); Blood Urine 3+ (Negative); Cocaine Screen Urine Negative (Negative); Glucose Urine UA Norm (Normal); Ketones Urine Negative (Negative); Leukocyte Esterase Urine 2+ (Negative); Nitrate Urine Negative (Negative); Opiate Screen Urine Negative (Negative); PCP Screen Urine Negative (Negative); Protein Urine 1+ (Negative); THC Screen Urine Negative (Negative); Urine Appearance Cloudy (CLEAR); Urine Color Yellow (Yellow); Urobilinogen Urine Norm (Negative); pH Urine 5 (5-7)
[2020-02-18 05:00] LABS: Add Urine Culture? Yes; Bacteria Urine 1+; Squamous Epithelial Cell Urine 0-4 (0-5); WBC Urine >100 /hpf (0-5)
--- NOTE | 2020-02-18 05:04 | P.HP_ITS ---
Providers/Chief Complaint Primary Care Provider: Parmjit Sanchez MD Chief Complaint: BACK PAIN POST FALL History of Present Illness Kristopher Linda is a 74 year old male who presents with history of several falls in the last week. Patient is a very poor historian secondary to dementia and who I was able to contact by phone gives part of the history. She was concerned after this last fall that he could not walk secondary to pain. He usually uses a walker. He was complaining of some mid to low back pain. Currently the patient denies any pain but when he moves, he appears uncomfortable. No history of fevers. reports he has been incontinent for years. Significant urinary retention found in the ER with a urinary tract infection so catheter was placed. Review of Systems General: Reports: 10 or more systems reviewed and unremarkable except in HPI and below Const: Denies: fever(s) or chills Eyes: Denies: change in vision ENMT: Denies: throat pain Card: Denies: chest pain Resp: Denies: dyspnea GI: Denies: abdominal pain : Reports: urinary incontinence; Denies: flank pain Musc: Reports: back pain Skin/Breast: Denies: rash Neuro: Denies: headache(s) Psych: Reports: memory loss and difficulty concentrating; Denies: anxiety Endo: Denies: polyuria Nick/Lymph: Denies: easy bruising All/Imm: Denies: urticaria Medications/Allergies Home Medications Medication Instructions Recorded Confirmed Last Taken Type atorvastatin 10 mg PO DAILY 08/15/19 01/08/20 Unknown History baclofen 10 mg tablet 10 mg PO TID #270 tab 10/02/19 01/08/20 Unknown Rx dalfampridine 10 mg 10 mg PO BID #60 tab 11/25/19 01/08/20 Unknown Rx tablet,extended release,12 hr memantine 10 mg tablet 10 mg PO BID #180 tab 11/28/19 01/08/20 Unknown Rx sertraline 100 mg tablet 100 mg PO DAILY #90 tab 11/28/19 01/08/20 Unknown Rx glatiramer 40 mg/mL subcutaneous 40 mg SUBCUT .THREE TIMES WEEKLY 12/02/19 01/08/20 Unknown Rx syringe #12 ml omeprazole 20 mg capsule,delayed 20 mg PO DAILY #90 cap 12/04/19 01/08/20 Unknown Rx release Allergies Allergy/AdvReac Type Severity Reaction Status Date / Time Penicillins Allergy Unknown Verified 02/17/20 23:05 PFSH Acute PFSH: Medical History (Updated 02/18/20 @ 05:21 by Everette Donahue MD) Asthma Cancer of sebaceous glands Chalazion Dementia Depression Dysuria Esophageal reflux Gastroesophageal reflux disease Glaucoma History of multiple sclerosis Hypercholesterolemia Hyperlipidemia Impairment of cognitive function Multiple sclerosis Pyoderma Sacroiliitis Viral warts Family History Other CAD (coronary artery disease) Cancer Diabetes Denies family history of Clotting disorder Dementia Hyperlipidemia Psychiatric illness Chronic kidney disease (CKD) Suicide Anesthesia complication Bleeding disorder Family history of premature coronary artery disease Lung disease Hypertension Stroke Social History (Updated 02/18/20 @ 05:19 by Everette Donahue MD) Smoking and tobacco status: former smoker Alcohol intake: former Substance/Drug Use: never Vitals/I&O/Wt Last Vital Signs Temp 97.8 F 02/17/20 23:00 Pulse 70 02/18/20 05:03 Resp 16 02/18/20 05:03 BP 106/81 02/18/20 05:03 Pulse Ox 96 02/18/20 05:03 02/17/20 02/17/20 02/18/20 14:59 22:59 06:59 Intake Total 16.65 / 16.65 Balance 16.65 / 16.65 Weight last 48 hrs Weight 63.503 kg Physical Exam Narrative: EXAM NARRATIVE: General exam is an elderly thin appearing white m phillip, who reports his typically does everything for him. HEENT: Pupils equally round. Oropharynx clear. Neck is supple no lymphadenopathy or thyromegaly Cardiovascular regular rate and rhythm without murmur Lungs clear Abdomen is soft, positive bowel sounds. Back demonstrates a stage II decubitus, no evidence of infection demonstrates Mueller Extremities no cyanosis clubbing or edema, a few excoriations are noted. Cap refill brisk. Skin no rash. See findings above Neuro no focal deficits, memory deficit apparent but in discussion with the is likely baseline. Urinary Catheter Management^: Coude: Cath Placed During This Visit: yes Reason for Continuing Indwelling Catheter: Acute Urinary Retention or Obstruction Urinary Catheter Date of Insertion: 02/18/20 Urinary Catheter Time of Insertion: 04:30 Data : 02/17/20 00:12 02/17/20 00:12 Micro: Microbiology 02/17/20 00:12 Blood Culture - Preliminary Blood SPECIMEN COLLECTED A&P Assessment and plan (1) Fall: History of multiple falls. Physical therapy consultation. Suspect this is secondary to his MS. Contributing factors this hospitalization may be UTI. Status: Acute (2) Compression fracture: Mild T12 compression fracture Physical therapy consultation. Status: Acute (3) UTI (urinary tract infection): Initiate Rocephin Urine culture Blood culture Status: Acute (4) Urinary retention: Continue Mueller Initiate Flomax, if blood pressure improves with fluids(borderline low currently) Urology consultation as an outpatient It appears from the urine in the Mueller he had approximately 900 cc retained Status: Acute (5) Leukocytosis: Secondary to UTI Status: Acute Additional A&P Information Dementia. Continue Namenda MS. Holding medicines currently History of asthma, no symptoms currently. History of GERD, continue proton pump inhibitor Hyperlipidemia, continue statin Multiple other medical problems as outlined in his past medical history. Full code Lovenox for DVT prophylaxis Attestations Medical Necessity Statement*: Greater than 2 midnight stay for treatment of UTI, compression fracture, back pain, frequent falls, high risk for significant fracture at this point in time. Time Spent in Patient Care: Greater than 35 minutes Coding Level of Care Code Acute Automotive Service Assistant for Almaz Fwd Diagnoses Fall W19.XXXA Compression fracture UTI (urinary tract infection) N39.0 Urinary retention R33.9 Leukocytosis D72.829
[2020-02-18] MEDS: cefTRIAXone 1,000 MG in sodium chloride 0.9% (plus) 50 ML 100 MG IV (05:20)
--- NOTE | 2020-02-18 05:36 | ECG_ITS ---
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 Measurements Intervals [place] Rate: 85 P: SD: -1 QRS: 52 QRSD: 81 T: 3 QT: 380 QTc: 453 Interpretive Statements Accelerated Junctional rhythm (P waves not visible, possibly from baseline artifact) ABNORMAL RHYTHM ECG Compared to ECG 02/18/2020 01:49:30 P waves no longer visible Electronically Signed On 02-19-2020 12:29:07 CDT by Oscar Dunne M.D. [id number]
[2020-02-18 06:56] LABS: Troponin 5 6HR 16.18 ng/L (0-15)
[2020-02-18 06:57] LABS: Troponin 5 6HR Delta 1.18 ng/L (0-12)
[2020-02-18 07:31] LABS: Thyroid Stimulating Hormone 1.63 uIU/mL (0.27-4.20)
[2020-02-18 07:52] LABS: Lactate (Lactic Acid level) 1.1 mmol/L (0.5-2.2)
[2020-02-18] MEDS: sertraline 100 mg Tablet PO (08:35)
[2020-02-18] MEDS: atorvastatin 40 mg Tablet 10 MG PO (08:35)
[2020-02-18] MEDS: memantine 5 mg tablet 10 MG PO ×2 (08:35→17:17)
[2020-02-18] MEDS: pantoprazole DR 40 mg Tablet PO (08:35)
[2020-02-18] MEDS: docusate sodium 100 mg Capsule PO ×2 (08:35→17:17)
[2020-02-18] MEDS: enoxaparin 40 mg/0.4 mL Syringe SUBCUT (08:37)
[2020-02-18] MEDS: metoprolol tartrate 25 mg Tablet 12.5 MG PO (09:21)
[2020-02-18 09:22] LABS: Reflex Lactate Order REFLEX LACTIC ORDERD
[2020-02-18 09:57] LABS: Lactic Acid level (Lactate) 2.3 mmol/L (0.5-2.2)
--- NOTE | 2020-02-18 11:05 | PC.CHAP ---
Pastoral Care Encounter/Spiritual Assessment Type of Contact [] Declined construction project assistant visit [] Patient/Family/Request visit [] Outpatient visit [] Follow-up visit [] Physician referral [] Code/Alert [x] Routine visit [] Staff referral [] Actively dying [] Patient sleeping [] Family support [] [] Out of room [] Palliative care [] [x] Receiving care in room [] Pre-surgical visit [] Trauma [] Long length of stay [] ICU visit [] Other: Relational/Emotional Strength [x] Patient feels connected with others/family/visitors/staff [x] Distress [] Loneliness/isolation [] Abandonment Spirituality of Patient [x] Person of Manuela [] Attends Amish of their Manuela [x] Believes in Prayer [] Reads Bible or Orthodoxy materials [] There are Spiritual issues to be addressed Crusher Loader Equipment Operator Interventions [x] Prayer [x] Active listening [x] Non-anxious presence [x] Spiritual/emotional support [] Crisis/trauma care [x] Spiritual counseling [] Bereavement support [] Provided bereavement packet [] Provided Bible/devotional materials [] Provided toy/stuffed animal, coloring book to patient or family member [] Provided Communion [] Anointing/[place] [] Salvation [x] Completed spiritual assessment [] Other: Impact on Illness or Injury [] Angry [] Fearful [x] Anxious [] Often cries [] Exhaustion [] Unable to work [] Unable to attend pentecostal [] Unable to walk/stand [] Unable to read [] Unable to drive [] Unable to eat/drink [] Unable to sleep [] Unable to be with family [] Patient intubated [] Other: Summary Back pain, doesn't what is wrong, has tests and doesn't the kown the results, has a good attitude, has family doen't when she can go home Time spent with patient 10 mins
--- NOTE | 2020-02-18 15:42 | P.PN_ITS ---
Subjective Subjective: Interval history: no acute overnight events, Bladder distension noted on CT for which he had a Mueller placed. He is currently diuresing well. 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 Physical therapy consultation. Suspect this is secondary to his MS. Contributing factors this hospitalization may be UTI. Status: Acute (2) Compression fracture: Mild T12 compression fracture Physical therapy consultation. Status: Acute (3) UTI (urinary tract infection): Initiate Rocephin Urine culture Blood culture Status: Acute (4) Urinary retention: Continue Mueller It appears from the urine in the Mueller he had approximately 900 cc retained Status: Acute (5) Leukocytosis: Secondary to UTI Status: Acute Additional A&P Information Dementia. Continue Namenda MS. Holding medicines currently History of asthma, no symptoms currently. History of GERD, continue proton pump inhibitor Hyperlipidemia, continue statin Multiple other medical problems as outlined in his past medical history. Full code Lovenox for DVT prophylaxis Attestations Medical Necessity Statement*: Needs ongoing physical therapy evaluation and pain control from his T12 fracture. Coding Level of Care Code Acute Adult Education Manager for Chg Fwd Diagnoses Fall W19.XXXA Compression fracture UTI (urinary tract infection) N39.0 Urinary retention R33.9 Leukocytosis D72.829
[2020-02-18] MEDS: lidocaine 5% Patch 1 PATCH TOPICAL (21:07)
[2020-02-18] MEDS: HYDROcodone-acetaminophen 5-325 mg Tablet 1 TAB PO (23:32)
[2020-02-19] VITALS (9 sets, daily range): BP systolic 78–141; BP diastolic 40–78; PULSE 47–121; RESP 16–24; TEMP 35.8–37; O2SAT 95–99
[2020-02-19 02:13] LABS: Basophils % 0.1 %; Eosinophils % 0.2 %; Hematocrit 35.1 % (42.0-52.0); Hemoglobin 11.1 g/dL (11.7-16.6); Lymphocytes % 9.9 %; Mean Corpuscular HGB Conc 31.6 g/dL (30.0-36.0); Mean Corpuscular Hemoglobin 30.7 pg (28.0-34.0); Mean Platelet Volume 11.1 fL (7.4-10.4); Monocytes % 9.4 %; Neutrophils # 8.14 10^3/uL (1.8-7.7); Nucleated Red Blood Cells % 0 %; Platelet Count 104 10^3/cmm (130-400); Red Blood Count 3.62 10^6/uL (4.1-5.3); Red Cell Distribution Width 13.2 % (12.1-15.1); White Blood Count 10.2 10^3/uL (4.0-10.0)
[2020-02-19 02:34] LABS: Anion Gap 7.3 (5-19); Blood Urea Nitrogen 23 mg/dL (8-23); Calcium 7.8 mg/dL (8.5-10.5); Carbon Dioxide 26 mmol/L (22-29); Chloride 107 mmol/L (98-107); Glucose 102 mg/dL (65-115); Osmolality Calculated 279 mOsm/kg (285-295); Potassium 4.3 mmol/L (3.5-5.1); Sodium 136 mmol/L (136-145)
[2020-02-19 02:35] LABS: Magnesium 1.9 mg/dL (1.7-2.3)
--- NOTE | 2020-02-19 03:57 | ECG_ITS ---
[facility] Test Date: 2020-02-19 Pat Name: Kristopher Linda Department: Room: 251 Gender: Male Diagnostic Radiologic Technologist: : 1945 Requested By: Everette Del Cid Order Number: [id number] Kavon MD: Oscar Dunne M.D. Measurements Intervals [place] Rate: 52 P: 88 AL: 165 QRS: 51 QRSD: 86 T: 44 QT: 416 QTc: 389 Interpretive Statements SINUS BRADYCARDIA LOW QRS VOLTAGE IN EXTREMITY LEADS [QRS DEFLECTION < 0.5 mV IN LIMB LEADS] Compared to ECG 02/18/2020 06:27:20 Low QRS voltage now present Electronically Signed On 02-19-2020 17:19:09 CDT by Oscar Dunne M.D. [id number]
[2020-02-19] MEDS: cefTRIAXone 1,000 MG in sodium chloride 0.9% (plus) 50 ML 100 MG IV (05:39)
[2020-02-19] MEDS: sodium chloride 0.9% 1,000 ML 100 ML IV ×2 (05:40→18:22)
--- NOTE | 2020-02-19 08:15 | PC.CHAP ---
Pastoral Care Encounter/Spiritual Assessment Type of Contact [] Declined dishwashing machine operator visit [] Patient/Family/Request visit [] Outpatient visit [] Follow-up visit [] Physician referral [] Code/Alert [x] Routine visit [] Staff referral [] Actively dying [] Patient sleeping [] Family support [] [] Out of room [] Palliative care [] [] Receiving care in room [] Pre-surgical visit [] Trauma [] Long length of stay [] ICU visit [] Other: Relational/Emotional Strength [] Patient feels connected with others/family/visitors/staff [] Distress [] Loneliness/isolation [] Abandonment Spirituality of Patient [] Person of Manuela [] Attends Muslim of their Manuela [] Believes in Prayer [] Reads Bible or Druze materials [] There are Spiritual issues to be addressed Loading Inspector Interventions [x] Prayer [x] Active listening [x] Non-anxious presence [x] Spiritual/emotional support [] Crisis/trauma care [] Spiritual counseling [] Bereavement support [] Provided bereavement packet [] Provided Bible/devotional materials [] Provided toy/stuffed animal, coloring book to patient or family member [] Provided Communion [] Anointing/[place] [] Salvation [x] Completed spiritual assessment [] Other: Impact on Illness or Injury [] Angry [] Fearful [] Anxious [] Often cries [] Exhaustion [] Unable to work [] Unable to attend yazidi [] Unable to walk/stand [] Unable to read [] Unable to drive [] Unable to eat/drink [] Unable to sleep [] Unable to be with family [] Patient intubated [] Other: Summary patient in good spirits.. eating well.. Time spent with patient 10 min
[2020-02-19] MEDS: pantoprazole DR 40 mg Tablet PO (09:08)
[2020-02-19] MEDS: docusate sodium 100 mg Capsule PO ×2 (09:08→18:22)
[2020-02-19] MEDS: acetaminophen 325 mg Tablet 650 MG PO (09:08)
[2020-02-19] MEDS: memantine 5 mg tablet 10 MG PO ×2 (09:10→18:22)
[2020-02-19] MEDS: atorvastatin 40 mg Tablet 10 MG PO (09:10)
[2020-02-19] MEDS: sertraline 100 mg Tablet PO (09:10)
[2020-02-19] MEDS: enoxaparin 40 mg/0.4 mL Syringe SUBCUT (09:11)
[2020-02-19] MEDS: sodium chloride 0.9% 500 ML 999 ML IV (10:52)
--- NOTE | 2020-02-19 13:17 | P.PN_ITS ---
Subjective Subjective: Interval history: Patient states feeling much improved today. He worked with PT. He was able to ambulate with minimum assistance. He is able to stand up and down and moved to chair with a walker. Expressed some frustration with the walker not having brakes on but otherwise he feels he is returned slowly returning close to his baseline. Lidocaine patch appears to have helped his back pain last night. We will keep with this. On telemetry this morning he was noted to have bradycardia and what appeared to be possible heart block. However on a 12-lead EKG it is sinus bradycardia. He had atrial fibrillation in some of his initial EKGs, which are now sinus bradycardia. Patient reports being asymptomatic. Blood pressure has been between 88-90 systolic. Patient denies any dizziness. We will give a bolus of 1 L of fluid as patient does appear somewhat dehydrated and monitor vital signs. His white blood cell count is trending down today. Medications: Reviewed: Yes Vitals/I&O/Wt Last Vital Signs Temp 96.4 F L 02/19/20 11:36 Pulse 62 02/19/20 11:36 Resp 18 02/19/20 11:36 BP 90/45 02/19/20 11:36 Pulse Ox 99 02/19/20 07:24 02/18/20 02/19/20 02/19/20 22:59 06:59 14:59 Intake Total 1120 / 2348.333 1240 / 3588.333 1100 / 1100 Output Total 500 / 500 720 / 720 Balance 1120 / 2348.333 740 / 3088.333 380 / 380 Weight last 48 hrs Weight 43.318 kg Weight 63.503 kg Physical Exam 2 Narrative: EXAM NARRATIVE: GEN: Awake, alert and oriented, no acute distress CVS: S1S2 N RS: CTA B/L Abd: Soft, nt/nd , bs+ MOTOR TESTER: Currently patient is able to perform flexion and extension at hip knee and ankle joints. He did well with PT today with minimal assistance and with a walker. Pain is better controlled today. Urinary Catheter Management^: Coude: Cath Placed During This Visit: yes Reason for Continuing Indwelling Catheter: Acute Urinary Retention or Obstruction Urinary Catheter Date of Insertion: 02/18/20 Urinary Catheter Time of Insertion: 04:30 Data : 02/19/20 01:58 02/19/20 01:58 Micro: Microbiology 02/18/20 04:20 Urine Culture - Preliminary Urine,Clean Catch 02/17/20 00:12 Blood Culture - Preliminary Blood NEGATIVE TO DATE A&P Assessment and plan (1) Fall: History of multiple falls. Suspect this may be related to his underlying worsening MS. Suboptimal pain control from a thoracic fracture also likely contributing. Movement is improved today after pain control with a lidocaine patch. Status: Acute (2) Compression fracture: Mild T12 compression fracture Physical therapy consultation appreciated Pain controlled currently Status: Acute (3) UTI (urinary tract infection): Continue Rocephin, preliminary urine cultures negative so far. Blood culture negative to date. Patient remains afebrile. CT imaging with grossly distended bladder, decompressed after placement of Mueller. White blood cell count is trending down. Status: Acute (4) Urinary retention: Continue Mueller It appears from the urine in the Mueller he had approximately 900 cc retained Status: Acute (5) Leukocytosis: Secondary to UTI Status: Acute Additional A&P Information Dementia. Continue Namenda MS. Holding medicines currently History of asthma, no symptoms currently. History of GERD, continue proton pump inhibitor Hyperlipidemia, continue statin Multiple other medical problems as outlined in his past medical history. Full code Lovenox for DVT prophylaxis Disposition discharge to SNF when medically ready. Attestations Medical Necessity Statement*: Pain control, undergoing physical therapy evaluation and treatment Coding Level of Care Code Acute Fingernail Technician for Almaz Fwjermaine Diagnoses Fall W19.XXXA Compression fracture UTI (urinary tract infection) N39.0 Urinary retention R33.9 Leukocytosis D72.829
[2020-02-19] MEDS: sodium chloride 0.9% 1,000 ML 999 ML IV (14:07)
--- NOTE | 2020-02-19 14:57 | ECG_ITS ---
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 Measurements Intervals [place] Rate: 53 P: 87 [place]: 175 QRS: 5 QRSD: 94 T: 7 QT: 438 QTc: 414 Interpretive Statements SINUS BRADYCARDIA Compared to ECG 02/19/2020 04:18:22 No significant changes Electronically Signed On 02-19-2020 17:56:20 CDT by Oscar Dunne M.D. [email or web address]
[2020-02-19] MEDS: lidocaine 5% Patch 1 PATCH TOPICAL (21:15)
[2020-02-20 03:19] VITALS: BP 138/73; PULSE 119; RESP 16; TEMP 37.3; O2SAT 94
[2020-02-20] MEDS: sodium chloride 0.9% 1,000 ML 100 ML IV ×2 (04:56→15:32)
[2020-02-20] MEDS: cefTRIAXone 1,000 MG in sodium chloride 0.9% (plus) 50 ML 100 MG IV (04:57)
[2020-02-20 07:44] VITALS: BP 128/72; PULSE 59; RESP 14; TEMP 37.1; O2SAT 94
[2020-02-20] MEDS: pantoprazole DR 40 mg Tablet PO (08:41)
[2020-02-20] MEDS: enoxaparin 40 mg/0.4 mL Syringe SUBCUT (08:41)
[2020-02-20] MEDS: atorvastatin 40 mg Tablet 10 MG PO (08:41)
[2020-02-20] MEDS: docusate sodium 100 mg Capsule PO ×2 (08:41→15:33)
[2020-02-20] MEDS: sertraline 100 mg Tablet PO (08:41)
[2020-02-20] MEDS: memantine 5 mg tablet 10 MG PO ×2 (08:41→15:33)
[2020-02-20] MEDS: lidocaine 5% Patch 1 PATCH TOPICAL ×2 (08:42→20:33)
[2020-02-20 10:47] VITALS: BP 95/56; PULSE 69; RESP 16; TEMP 36.7; O2SAT 94
[2020-02-20 15:37] VITALS: BP 122/74; PULSE 64; RESP 16; TEMP 37.3; O2SAT 96
--- NOTE | 2020-02-20 17:26 | PM.PN ---
Subjective Subjective: Interval history: Denies any complaints today. States pain is better. Clinically looks about the same. Had not participated with PT by the time I rounded today. Medications: Reviewed: Yes Vitals/I&O/Wt Last Vital Signs Temp 99.1 F 02/20/20 15:37 Pulse 64 02/20/20 15:37 Resp 16 02/20/20 15:37 BP 122/74 02/20/20 15:37 Pulse Ox 96 02/20/20 15:37 02/20/20 02/20/20 02/20/20 06:59 14:59 22:59 Intake Total 1240 / 4060 1260 / 1260 Output Total 1250 / 3170 1999 Balance -10 / 890 -740 / -740 Physical Exam Narrative: EXAM NARRATIVE: GEN: Awake, alert and oriented, no acute distress CVS: S1S2 N RS: CTA B/L Abd: Soft, nt/nd , bs+ HIGHWAY ADMINISTRATIVE ENGINEER: Currently patient is able to perform flexion and extension at hip knee and ankle joints. Pain is better controlled today. Urinary Catheter Management^: Coude: Cath Placed During This Visit: yes Reason for Continuing Indwelling Catheter: Acute Urinary Retention or Obstruction Urinary Catheter Date of Insertion: 02/18/20 Urinary Catheter Time of Insertion: 04:30 Data : 02/19/20 01:58 02/19/20 01:58 Micro: Microbiology 02/18/20 04:20 Urine Culture - Final Urine,Clean Catch A&P Assessment and plan (1) Fall: History of multiple falls. Suspect this may be related to his underlying worsening MS. Suboptimal pain control from a thoracic fracture also likely contributing. Movement is improved today after pain control with a lidocaine patch. Status: Acute (2) Compression fracture: Mild T12 compression fracture Physical therapy consultation appreciated Pain controlled currently Status: Acute (3) UTI (urinary tract infection): Continue Rocephin, preliminary urine cultures negative so far. Blood culture negative to date. Patient remains afebrile. CT imaging with grossly distended bladder, decompressed after placement of Mueller. White blood cell count is trending down. Status: Acute (4) Urinary retention: Continue Mueller It appears from the urine in the Mueller he had approximately 900 cc retained Status: Acute (5) Leukocytosis: Secondary to UTI Status: Acute Additional A&P Information Dementia. Continue Namenda MS. Holding medicines currently History of asthma, no symptoms currently. History of GERD, continue proton pump inhibitor Hyperlipidemia, continue statin Multiple other medical problems as outlined in his past medical history. Full code Lovenox for DVT prophylaxis Disposition discharge to SNF has good benefit from [facility] facility PT OT. Placement has been declined by nursing homes as he is on Glatopa and dalfampridine which are expensive medications. Outpatient neurology office of Dr. Fraser has been contacted to see if there are any potential alternates. If patient's medications are without any other alternatives, will likely need to discharge home with PT OT. would prefer discharge to SNF as she is unable to take care of him at home at this present time especially with him needing extra help to ambulate. Attestations Medical Necessity Statement*: Awaiting disposition decisions and placement at SNF ideally. Coding Level of Care Code Acute Relay Tester Helper for Chg Fwd Diagnoses Fall W19.XXXA Compression fracture UTI (urinary tract infection) N39.0 Urinary retention R33.9 Leukocytosis D72.829
[2020-02-20 20:00] VITALS: BP 160/87; PULSE 68; RESP 20; TEMP 37; O2SAT 93
[2020-02-21] VITALS (7 sets, daily range): BP systolic 98–138; BP diastolic 40–71; PULSE 52–62; RESP 18–20; TEMP 36.7–37.1; O2SAT 95–98
[2020-02-21] MEDS: sodium chloride 0.9% 1,000 ML 100 ML IV ×2 (01:54→10:57)
[2020-02-21 04:19] LABS: Basophils % 0.6 %; Eosinophils # 0.1 10^3/uL (0.0-0.8); Hematocrit 32.3 % (42.0-52.0); Hemoglobin 10.1 g/dL (11.7-16.6); Lymphocytes # 1.1 10^3/uL (0.8-4.8); Mean Corpuscular HGB Conc 31.3 g/dL (30.0-36.0); Mean Corpuscular Volume 95.8 fL (80-94); Monocytes # 0.6 10^3/uL (0.2-0.9); Monocytes % 8.9 %; Neutrophils # 4.96 10^3/uL (1.8-7.7); Neutrophils % 73.4 %; Nucleated Red Blood Cells % 0 %; Platelet Count 136 10^3/cmm (130-400); Red Blood Count 3.37 10^6/uL (4.1-5.3); Red Cell Distribution Width 13.1 % (12.1-15.1); White Blood Count 6.8 10^3/uL (4.0-10.0)
[2020-02-21 04:42] LABS: Alanine Aminotransferase 10 U/L (0-41); Albumin Level 2.2 g/dL (3.5-5.2); Alkaline Phosphatase 59 IU/L (40-130); Anion Gap 9.7 (5-19); Aspartate Amino Transferase 13 U/L (0-40); Blood Urea Nitrogen 9 mg/dL (8-23); Calcium 7.1 mg/dL (8.5-10.5); Carbon Dioxide 26 mmol/L (22-29); Chloride 109 mmol/L (98-107); Globulin 2.8 g/dL (1.3-4.6); Glucose 94 mg/dL (65-115); Osmolality Calculated 288 mOsm/kg (285-295); Potassium 3.7 mmol/L (3.5-5.1); Sodium 141 mmol/L (136-145); Total Bilirubin 0.2 mg/dL (0.15-1.2)
[2020-02-21] MEDS: cefTRIAXone 1,000 MG in sodium chloride 0.9% (plus) 50 ML 100 MG IV (05:45)
[2020-02-21] MEDS: atorvastatin 40 mg Tablet 10 MG PO (08:29)
[2020-02-21] MEDS: docusate sodium 100 mg Capsule PO ×2 (08:29→17:09)
[2020-02-21] MEDS: sertraline 100 mg Tablet PO (08:30)
[2020-02-21] MEDS: memantine 5 mg tablet 10 MG PO ×2 (08:30→17:09)
[2020-02-21] MEDS: lidocaine 5% Patch 1 PATCH TOPICAL ×2 (08:31→20:35)
[2020-02-21] MEDS: enoxaparin 40 mg/0.4 mL Syringe SUBCUT (08:31)
[2020-02-21] MEDS: pantoprazole DR 40 mg Tablet PO (08:59)
--- NOTE | 2020-02-21 10:10 | PC.SOCIAL ---
IMM completed on 02/21/20 @ 0499
--- NOTE | 2020-02-21 15:42 | PC.NURSE ---
Patient assisted up to chair with SBA. Patient cursed at myself and SPORT SHOE SPIKE ASSEMBLER stating that he was going to fall but with encouragement and education as well as walker and gait belt, transferred fair to chair. Chair alarm is in place. Call light is in patients lap. Will continue to closely monitor. CORINNE, TANGELA
--- NOTE | 2020-02-21 16:06 | PM.PN ---
Subjective Subjective: Interval history: no new changes. Patient's pain is adequately controlled. He feels well and participating with PT OT. Remains demented as at baseline. Conversant. 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 Pain is better controlled today. Urinary Catheter Management^: Coude: Cath Placed During This Visit: yes Reason for Continuing Indwelling Catheter: Acute Urinary Retention or Obstruction Urinary Catheter Date of Insertion: 02/18/20 Urinary Catheter Time of Insertion: 04:30 Data : 02/21/20 03:47 02/21/20 03:47 A&P Assessment and plan (1) Fall: History of multiple falls. Suspect this may be related to his underlying worsening MS. Suboptimal pain control from a thoracic fracture also likely contributing. Movement is improved today after pain control with a lidocaine patch. Status: Acute (2) Compression fracture: Mild T12 compression fracture Physical therapy consultation appreciated Pain controlled currently Status: Acute (3) UTI (urinary tract infection): Continue Rocephin, preliminary urine cultures negative so far. Blood culture negative to date. Patient remains afebrile. CT imaging with grossly distended bladder, decompressed after placement of Mueller. White blood cell count is trending down. Status: Acute (4) Urinary retention: Continue Mueller It appears from the urine in the Mueller he had approximately 900 cc retained Status: Acute (5) Leukocytosis: Secondary to UTI Status: Acute Additional A&P Information Dementia. Continue Namenda MS. Holding medicines currently History of asthma, no symptoms currently. History of GERD, continue proton pump inhibitor Hyperlipidemia, continue statin Multiple other medical problems as outlined in his past medical history. Full code Lovenox for DVT prophylaxis Disposition discharge to SNF as will benefit from skilled therapy. Placement has been declined by nursing homes as he is on Glatopa and dalfampridine which are expensive medications. Outpatient neurology office of Dr. Fraser has been contacted to see if there are any potential alternates. Unfortunately she is not available this week. I had An extended discussion with his today. She states she is absolutely unable to take the patient home and care for him anymore because of her own advanced comorbidities. She states that she is debilitated, has a feeding tube and has myotonic dystrophy herself and is unable to care for the patient and give him the help that he needs in order to ambulate or perform ADLs. He additionally has a Mueller catheter now for which she will need follow-up with urology for urinary retention. She states she is unable to even perform the simple tasks of changing his urine bags. States she cannot take him home in this condition. She expressed her frustration and asked if at all possible to stop the MS medications and then have him go to long-term. I did discuss with her that this poses a potential risk of MS exacerbation which could even be fatal for the patient. Weighing the risks and benefits of coming home versus transitioning to a long-term for skilled therapy, she still feels that the only advantage of being home would be get the medication, but is very afraid that the patient will fall and have injuries that may be life or limb threatening. SHe states that stopping the medications and having him go to a long-term is a risk that she is willing to take at this present time. One potential option, should the long-term accept him with this arrangement would be to follow-up with Dr. Fraser in the office as early as possible to see if any potential alternative medications may exist. She is also open to transitioning patient to long-term for long-term care in which case he could potentially get his medications, however after discussion with case management, lack of having Medicaid or other insurance that would cover [facility] stay precludes this option for her at this present time. Patient continues to be at the hospital because of disposition difficulties as above. Attestations Medical Necessity Statement*: Awaiting disposition decisions as above. Coding Level of Care Code Acute Field Advisor for Chg Fwd Diagnoses Fall W19.XXXA Compression fracture UTI (urinary tract infection) N39.0 Urinary retention R33.9 Leukocytosis D72.829
[2020-02-21] MEDS: HYDROcodone-acetaminophen 5-325 mg Tablet 1 TAB PO (17:09)
--- NOTE | 2020-02-21 18:04 | PC.NURSE ---
Summary- Patient A/OX1. Patient is weak but up to chair with assist. Patient noted to have erythema present to sacrum with no open area noted. Aloe Vest applied and patient educated that Nursing staff will assist in repositioning q2 hours to help prevent wound. Patient eats meals with setup of tray. He cries out with movement stating pain/spasms in back. Patient offered pain meds throughout day and he denied until this evening after transferring to chair he stated he would like pain meds. Patient becomes agitated with movement and has verbally cursed at staff but is easily redirected. Mueller is in place and patent. Patient had 2 incontinent loose bowel movements today. Patient is a fall risk and bed/chair alarms are set. CORINNE, TANGELA
[2020-02-22 04:00] VITALS: BP 127/70; PULSE 61; RESP 18; TEMP 37.1; O2SAT 96
[2020-02-22] MEDS: cefTRIAXone 1,000 MG in sodium chloride 0.9% (plus) 50 ML 100 MG IV (05:56)
[2020-02-22 08:00] VITALS: BP 109/67; PULSE 56; RESP 20; TEMP 36.9; O2SAT 95
[2020-02-22] MEDS: atorvastatin 40 mg Tablet 10 MG PO (08:54)
[2020-02-22] MEDS: sertraline 100 mg Tablet PO (08:55)
[2020-02-22] MEDS: pantoprazole DR 40 mg Tablet PO (08:55)
[2020-02-22] MEDS: latanoprost 0.005% Op Soln 2.5 mL Btl 1 DROP EYE-BOTH (08:55)
[2020-02-22] MEDS: tamsulosin 0.4 mg Capsule PO (08:55)
[2020-02-22] MEDS: memantine 5 mg tablet 10 MG PO ×2 (08:55→16:58)
[2020-02-22] MEDS: lidocaine 5% Patch 1 PATCH TOPICAL (08:56)
[2020-02-22] MEDS: enoxaparin 40 mg/0.4 mL Syringe SUBCUT (08:58)
[2020-02-22 11:24] VITALS: BP 126/76; PULSE 74; RESP 18; TEMP 36.7; O2SAT 97
--- NOTE | 2020-02-22 15:23 | P.PN_ITS ---
Subjective Subjective: Interval history: Patient remains afebrile, hemodynamically stable Medications: Reviewed: Yes Vitals/I&O/Wt Last Vital Signs Temp 97.4 F L 02/23/20 11:35 Pulse 62 02/23/20 11:35 Resp 18 02/23/20 11:35 BP 130/68 02/23/20 11:35 Pulse Ox 96 02/23/20 11:35 02/23/20 02/23/20 02/23/20 06:59 14:59 22:59 Intake Total 720 / 2580 840 / 840 Output Total 1600 / 3000 1300 / 1300 Balance -880 / -420 -460 / -460 Physical Exam Narrative: EXAM NARRATIVE: GEN: Awake, alert, no acute distress CVS: S1S2 N RS: CTA B/L Abd: Soft, nt/nd , bs+ UNDERWRITING CONSULTANT: Patient is currently able to transfer from bed to chair with minimal assist. Urinary Catheter Management^: Coude: Cath Placed During This Visit: yes, but has since been removed by the nurse Reason for Continuing Indwelling Catheter: Decision to DC Catheter Urinary Catheter Date of Insertion: 02/18/20 Urinary Catheter Time of Insertion: 04:30 Date Urinary Catheter Removed: 02/23/20 Time Urinary Catheter Discontinued: 14:24 Data : 02/21/20 03:47 02/21/20 03:47 Micro: Microbiology 02/17/20 00:12 Blood Culture - Final Blood NO GROWTH AFTER 5 DAYS A&P Assessment and plan (1) Fall: History of multiple falls. Suspect this may be related to his underlying worsening MS. Movement is improved after pain control with a lidocaine patch. Participates with PT OT intermittently, needs strong motivation to do so. Status: Acute (2) Compression fracture: Mild T12 compression fracture Physical therapy consultation appreciated Pain controlled currently Status: Acute (3) UTI (urinary tract infection): urine cultures negative Blood culture negative to date. Patient remains afebrile. Discontinue ceftriaxone completed 5 days treatment empirically. Attempt removal of Mueller and voiding trial.. Status: Acute (4) Urinary retention: Remove Mueller and give voiding trials. It appears from the urine in the Mueller he had approximately 900 cc retained Status: Acute (5) Leukocytosis: Secondary to UTI Status: Acute Additional A&P Information Dementia. Continue Namenda MS. Holding medicines currently has not available on formulary History of asthma, no symptoms currently. History of GERD, continue proton pump inhibitor Hyperlipidemia, continue statin Multiple other medical problems as outlined in his past medical history. Full code Lovenox for DVT prophylaxis Disposition discharge to SNF as will benefit from skilled therapy. Placement has been declined by nursing homes as he is on Glatopa and dalfampridine which are expensive medications. Outpatient neurology office of Dr. Fraser has been contacted to see if there are any potential alternates. Unfortunately she is not available this week. I had An extended discussion with his today. She states she is absolutely unable to take the patient home and care for him anymore because of her own advanced comorbidities. She states that she is debilitated, has a feeding tube and has myotonic dystrophy herself and is unable to care for the patient and give him the help that he needs in order to ambulate or perform ADLs. He additionally has a Mueller catheter now for which she will need follow-up with urology for urinary retention. She states she is unable to even perform the simple tasks of changing his urine bags. States she cannot take him home in this condition. She expressed her frustration and asked if at all possible to stop the MS medications and then have him go to [facility]. I did discuss with her that this poses a potential risk of MS exacerbation which could even be fatal for the patient. Weighing the risks and benefits of coming home versus transitioning to a penitentiary for skilled therapy, she still feels that the only advantage of being home would be get the medication, but is very afraid that the patient will fall and have injuries that may be life or limb threatening. SHe states that stopping the medications and having him go to a penitentiary is a risk that she is willing to take at this present time. One potential option, should the penitentiary accept him with this arrangement would be to follow-up with Dr. Fraser in the office as early as possible to see if any potential alternative medications may exist. She is also open to transitioning patient to penitentiary for long-term care in which case he could potentially get his medications, however after discussion with case management, lack of having Medicaid or other insurance that would cover intermediate manager stay precludes this option for her at this present time. Patient continues to be at the hospital because of disposition difficulties as above. Attestations Medical Necessity Statement*: Awaiting disposition, family unable to take care of the patient anymore, wants SNF placement, difficulty as above Coding Level of Care Code Acute Polystyrene Bead Molder for Chg Fwd Diagnoses Fall W19.XXXA Compression fracture UTI (urinary tract infection) N39.0 Urinary retention R33.9 Leukocytosis D72.829
[2020-02-22 15:42] VITALS: BP 126/74; RESP 18; TEMP 36.8; O2SAT 97
[2020-02-22 19:22] VITALS: BP 108/52; PULSE 67; RESP 17; TEMP 36.8; O2SAT 94
--- NOTE | 2020-02-22 22:48 | PC.NURSE ---
02/22/202229 This nurse went in to patients room with ARLINE Tony to turn and reposition patient and to remove lidocaine patch. We were not able to locate Lidocaine patch.
[2020-02-23] VITALS: BP 103/75; PULSE 64; RESP 18; TEMP 36.6; O2SAT 95
[2020-02-23 04:00] VITALS: BP 116/73; PULSE 58; RESP 18; TEMP 36.7; O2SAT 95
[2020-02-23] MEDS: cefTRIAXone 1,000 MG in sodium chloride 0.9% (plus) 50 ML 100 MG IV (06:22)
[2020-02-23 07:18] VITALS: BP 128/66; PULSE 64; RESP 20; TEMP 36.4; O2SAT 93
[2020-02-23] MEDS: docusate sodium 100 mg Capsule PO ×2 (09:08→17:48)
[2020-02-23] MEDS: sertraline 100 mg Tablet PO (09:09)
[2020-02-23] MEDS: atorvastatin 40 mg Tablet 10 MG PO (09:09)
[2020-02-23] MEDS: tamsulosin 0.4 mg Capsule PO (09:09)
[2020-02-23] MEDS: memantine 5 mg tablet 10 MG PO ×2 (09:09→17:48)
[2020-02-23] MEDS: pantoprazole DR 40 mg Tablet PO (09:09)
[2020-02-23] MEDS: latanoprost 0.005% Op Soln 2.5 mL Btl 1 DROP EYE-BOTH (09:10)
[2020-02-23] MEDS: enoxaparin 40 mg/0.4 mL Syringe SUBCUT (09:10)
[2020-02-23] MEDS: lidocaine 5% Patch 1 PATCH TOPICAL (09:11)
--- NOTE | 2020-02-23 10:10 | PC.SOCIAL ---
IMM Updated Page 2 of IMM updated and given to patient. Initialed, dated, and timed and placed back in chart.
[2020-02-23 11:35] VITALS: BP 130/68; PULSE 62; RESP 18; TEMP 36.3; O2SAT 96
[2020-02-23 15:28] VITALS: BP 126/70; PULSE 84; RESP 22; TEMP 36.4; O2SAT 93
--- NOTE | 2020-02-23 15:37 | P.PN_ITS ---
Subjective Subjective: Interval history: Afebrile, hemodynamically stable. No new changes. Patient's pain is adequately controlled. He feels well, declines PT OT. Medications: Reviewed: Yes Vitals/I&O/Wt Last Vital Signs Temp 97.6 F 02/23/20 15:28 Pulse 84 02/23/20 15:28 Resp 22 H 02/23/20 15:28 BP 126/70 02/23/20 15:28 Pulse Ox 93 02/23/20 15:28 02/23/20 02/23/20 02/23/20 06:59 14:59 22:59 Intake Total 720 / 2580 840 / 840 Output Total 1600 / 3000 1300 / 1300 Balance -880 / -420 -460 / -460 Physical Exam Narrative: EXAM NARRATIVE: GEN: Awake, alert, no acute distress CVS: S1S2 N RS: CTA B/L Abd: Soft, nt/nd , bs+ LAB ASST: Patient is currently able to transfer from bed to chair with minimal assist. Urinary Catheter Management^: Coude: Cath Placed During This Visit: yes, but has since been removed by the nurse Reason for Continuing Indwelling Catheter: Decision to DC Catheter Urinary Catheter Date of Insertion: 02/18/20 Urinary Catheter Time of Insertion: 04:30 Date Urinary Catheter Removed: 02/23/20 Time Urinary Catheter Discontinued: 14:24 Data : 02/21/20 03:47 02/21/20 03:47 Micro: Microbiology 02/17/20 00:12 Blood Culture - Final Blood NO GROWTH AFTER 5 DAYS A&P Assessment and plan (1) Fall: History of multiple falls. Suspect this may be related to his underlying worsening MS. Movement is improved after pain control with a lidocaine patch. Participates with PT OT intermittently, needs strong motivation to do so. Status: Acute (2) Compression fracture: Mild T12 compression fracture Physical therapy consultation appreciated Pain controlled currently Status: Acute (3) UTI (urinary tract infection): Continue Rocephin, preliminary urine cultures negative so far. Blood culture negative to date. Patient remains afebrile. CT imaging with grossly distended bladder, decompressed after placement of Mueller. White blood cell count is trending down. Receiving empiric antibiotic with ceftriaxone day 5 today. Status: Acute (4) Urinary retention: Continue Mueller It appears from the urine in the Mueller he had approximately 900 cc retained Status: Acute (5) Leukocytosis: Secondary to UTI Status: Acute Additional A&P Information Dementia. Continue Namenda MS. Holding medicines currently has not available on formulary History of asthma, no symptoms currently. History of GERD, continue proton pump inhibitor Hyperlipidemia, continue statin Multiple other medical problems as outlined in his past medical history. Full code Lovenox for DVT prophylaxis Disposition discharge to SNF as will benefit from skilled therapy. Placement has been declined by nursing homes as he is on Glatopa and dalfampridine which are expensive medications. Outpatient neurology office of Dr. Fraser has been contacted to see if there are any potential alternates. Unfortunately she is not available this week. I had An extended discussion with his today. She states she is absolutely unable to take the patient home and care for him anymore because of her own advanced comorbidities. She states that she is debilitated, has a feeding tube and has myotonic dystrophy herself and is unable to care for the patient and give him the help that he needs in order to ambulate or perform ADLs. He additionally has a Mueller catheter now for which she will need follow-up with urology for urinary retention. She states she is unable to even perform the simple tasks of changing his urine bags. States she cannot take him home in this condition. She expressed her frustration and asked if at all possible to stop the MS medications and then have him go to senior living. I did discuss with her that this poses a potential risk of MS exacerbation which could even be fatal for the patient. Weighing the risks and benefits of coming home versus transitioning to a senior living for skilled therapy, she still feels that the only advantage of being home would be get the medication, but is very afraid that the patient will fall and have injuries that may be life or limb threatening. SHe states that stopping the medications and having him go to a senior living is a risk that she is willing to take at this present time. One potential option, should the senior living accept him with this arrangement would be to follow-up with Dr. Fraser in the office as early as possible to see if any potential alternative medications may exist. She is also open to transition ing patient to senior living for long-term care in which case he could potentially get his medications, however after discussion with case management, lack of having Medicaid or other insurance that would cover exterminator termite stay precludes this option for her at this present time. Patient continues to be at the hospital because of disposition difficulties as above. Attestations Medical Necessity Statement*: Pending disposition, family unable to take care of patient at home anymore. Coding Level of Care Code Acute Scrum Project Manager for Chg Fwd Diagnoses Fall W19.XXXA Compression fracture UTI (urinary tract infection) N39.0 Urinary retention R33.9 Leukocytosis D72.829
[2020-02-23 20:00] VITALS: BP 125/78; PULSE 64; RESP 17; TEMP 36.7; O2SAT 95
[2020-02-24] VITALS: BP 122/76; PULSE 60; RESP 17; TEMP 36.9; O2SAT 95
[2020-02-24 04:00] VITALS: BP 103/62; PULSE 60; RESP 16; TEMP 36.8; O2SAT 95
[2020-02-24 04:38] LABS: Basophils # 0.1 10^3/uL (0.0-0.1); Basophils % 0.6 %; Eosinophils # 0.1 10^3/uL (0.0-0.8); Hematocrit 34.4 % (42.0-52.0); Lymphocytes # 1.1 10^3/uL (0.8-4.8); Lymphocytes % 12.7 %; Mean Corpuscular Hemoglobin 30.3 pg (28.0-34.0); Mean Corpuscular Volume 94.8 fL (80-94); Mean Platelet Volume 10.1 fL (7.4-10.4); Monocytes # 0.9 10^3/uL (0.2-0.9); Monocytes % 10.3 %; Neutrophils % 75.2 %; Nucleated Red Blood Cells % 0 %; Platelet Count 206 10^3/cmm (130-400); Red Blood Count 3.63 10^6/uL (4.1-5.3); Red Cell Distribution Width 12.8 % (12.1-15.1); White Blood Count 8.4 10^3/uL (4.0-10.0)
[2020-02-24 04:56] LABS: Alanine Aminotransferase 12 U/L (0-41); Albumin Level 2.6 g/dL (3.5-5.2); Alkaline Phosphatase 64 IU/L (40-130); Anion Gap 8.3 (5-19); Aspartate Amino Transferase 16 U/L (0-40); Blood Urea Nitrogen 18 mg/dL (8-23); Carbon Dioxide 30 mmol/L (22-29); Chloride 105 mmol/L (98-107); Globulin 3.1 g/dL (1.3-4.6); Glucose 98 mg/dL (65-115); Osmolality Calculated 284 mOsm/kg (285-295); Potassium 4.3 mmol/L (3.5-5.1); Sodium 139 mmol/L (136-145); Total Bilirubin 0.2 mg/dL (0.15-1.2); Total Protein 5.7 g/dL (6.6-8.7)
[2020-02-24 07:43] VITALS: BP 106/60; PULSE 65; RESP 18; TEMP 36.9; O2SAT 94
[2020-02-24] MEDS: latanoprost 0.005% Op Soln 2.5 mL Btl 1 DROP EYE-BOTH (08:12)
[2020-02-24] MEDS: lidocaine 5% Patch 1 PATCH TOPICAL (08:12)
[2020-02-24] MEDS: sertraline 100 mg Tablet PO (08:13)
[2020-02-24] MEDS: docusate sodium 100 mg Capsule PO ×2 (08:13→17:39)
[2020-02-24] MEDS: memantine 5 mg tablet 10 MG PO ×2 (08:13→17:39)
[2020-02-24] MEDS: atorvastatin 40 mg Tablet 10 MG PO (08:13)
[2020-02-24] MEDS: tamsulosin 0.4 mg Capsule PO (08:13)
[2020-02-24] MEDS: pantoprazole DR 40 mg Tablet PO (08:13)
[2020-02-24] MEDS: enoxaparin 40 mg/0.4 mL Syringe SUBCUT (08:15)
[2020-02-24 11:16] VITALS: BP 112/68; PULSE 69; RESP 18; TEMP 36.4; O2SAT 97
--- NOTE | 2020-02-24 14:38 | P.PN_ITS ---
Subjective Subjective: Interval history: Today he reports he is doing well. He does say that with activity he is bothered with back pain, although it is not bothersome to him at rest. Vitals/I&O/Wt Last Vital Signs Temp 97.5 F L 02/24/20 11:16 Pulse 69 02/24/20 11:16 Resp 18 02/24/20 11:16 BP 112/68 02/24/20 11:16 Pulse Ox 97 02/24/20 11:16 02/23/20 02/24/20 02/24/20 22:59 06:59 14:59 Intake Total 360 / 1200 840 / 840 Output Total 700 / 2000 1603 / 1603 Balance 360 / -100 -700 / -800 -763 / -763 Physical Exam Const: COMMON NORMALS: no acute distress, patient oriented x3 and alert ORIENTATION/CONSCIOUSNESS: Yes awake HENMT: COMMON NORMALS: oropharynx normal Neck/C-Spine: COMMON NORMALS: no JVD Resp: COMMON NORMALS: normal respiratory effort and clear to auscultation bilaterally AUSCULTATION: clear to auscultation bilaterally Cardio: COMMON NORMALS: no JVD, regular rhythm, S1 normal heart sound present, S2 normal heart sound present and No murmurs present (Cardio) RHYTHM: regular rhythm HEART SOUNDS: S1 normal heart sound present and S2 normal heart sound present GI: COMMON NORMALS: Normal to inspection, nondistended, normoactive bowel sounds present, Soft to palpation and non-tender PALPATION: Yes Soft to palpation Extremity: COMMON NORMALS: no joint enlargement and no pedal edema Neuro: COMMON NORMALS: patient oriented x3 and moves all extremities SENSORIUM/ORIENTATION: Yes alert Skin: COMMON NORMALS: no rashes or lesions noted GENERAL SKIN EXAM: no rashes or lesions noted Urinary Catheter Management^: Coude: Cath Placed During This Visit: yes, but has since been removed by the nurse Reason for Continuing Indwelling Catheter: Decision to DC Catheter Urinary Catheter Date of Insertion: 02/18/20 Urinary Catheter Time of Insertion: 04:30 Date Urinary Catheter Removed: 02/23/20 Time Urinary Catheter Discontinued: 14:24 Mueller: Cath Placed During This Visit: yes Reason for Continuing Indwelling Catheter: Acute Urinary Retention or Obstruction Urinary Catheter Date of Insertion: 02/24/20 Urinary Catheter Time of Insertion: 01:30 Data : 02/24/20 04:00 02/24/20 04:00 A&P Assessment and plan (1) Fall: He is still bothered by pain in his back, especially with activity. Also with noted deconditioning. He does require rehabilitation following compression fracture. His is too frail to be able to care for him at home. Discussed his condition with his neurologist Dr. Fraser who has been following with him in clinic for a long time, and so with the acute condition and need for rehabilitation, she says stopping his medications at this time should be safe for the foreseeable future. She would like to see him in follow-up in office for reevaluation after discharge. Some urine retention is noted, however, suspected secondary to urinary tract infection. Continue pain control. He does report some chronic back pain after multiple past injuries. Status: Acute (2) Compression fracture: Mild T12 compression fracture. Would benefit from rehabilitation as above. Status: Acute (3) UTI (urinary tract infection): Has received empiric treatment with ceftriaxone. Has some noted urinary retention for which Mueller catheter has been placed. He is started on Flomax. Will need follow-up with urology in office. Status: Acute (4) Urinary retention: Received treatment for UTI. Continue Flomax at this time. Continue Mueller in place for now. Follow-up with urology in office. Status: Acute (5) Leukocytosis: Secondary to UTI. Resolved. Status: Acute Additional A&P Information Dementia. Continue Namenda MS. Follow up with neurology in office. History of asthma, no symptoms currently. History of GERD, continue proton pump inhibitor Hyperlipidemia, continue statin Multiple other medical problems as outlined in his past medical history. Attestations Medical Necessity Statement*: Continue hospitalization pending [facility] to [facility] facility. Coding Level of Care Code Acute Wire Bender for g Fwd Diagnoses Fall W19.XXXA Compression fracture UTI (urinary tract infection) N39.0 Urinary retention R33.9 Leukocytosis D72.829
[2020-02-24 16:00] VITALS: BP 116/69; PULSE 59; RESP 18; TEMP 36.9; O2SAT 98
[2020-02-24 20:00] VITALS: BP 100/63; PULSE 68; RESP 20; TEMP 36.8; O2SAT 94
[2020-02-25] VITALS (7 sets, daily range): BP systolic 98–124; BP diastolic 62–76; PULSE 52–98; RESP 17–24; TEMP 36.3–36.7; O2SAT 95–99
[2020-02-25] MEDS: atorvastatin 40 mg Tablet 10 MG PO (08:26)
[2020-02-25] MEDS: sertraline 100 mg Tablet PO (08:27)
[2020-02-25] MEDS: docusate sodium 100 mg Capsule PO ×2 (08:27→18:05)
[2020-02-25] MEDS: tamsulosin 0.4 mg Capsule PO (08:27)
[2020-02-25] MEDS: lidocaine 5% Patch 1 PATCH TOPICAL (08:27)
[2020-02-25] MEDS: pantoprazole DR 40 mg Tablet PO (08:27)
[2020-02-25] MEDS: memantine 5 mg tablet 10 MG PO ×2 (08:27→18:05)
[2020-02-25] MEDS: enoxaparin 40 mg/0.4 mL Syringe SUBCUT (08:28)
[2020-02-25] MEDS: latanoprost 0.005% Op Soln 2.5 mL Btl 1 DROP EYE-BOTH (08:29)
--- NOTE | 2020-02-25 10:01 | PC.SOCIAL ---
IMM Updated Updated pt on Pg 2 IMM. No questions voiced. Provided pt a copy. Signed, dated, & timed copy in chart.
[2020-02-25] MEDS: HYDROcodone-acetaminophen 5-325 mg Tablet 1 TAB PO (11:14)
--- NOTE | 2020-02-25 12:18 | P.PN_ITS ---
Subjective Subjective: Interval history: He says today he is doing well. He is having persistent ache in his back, however, it has not been as severe as before. Vitals/I&O/Wt Last Vital Signs Temp 97.9 F 02/25/20 11:16 Pulse 73 02/25/20 11:16 Resp 17 02/25/20 11:16 BP 98/62 02/25/20 11:16 Pulse Ox 99 02/25/20 11:16 02/24/20 02/25/20 02/25/20 22:59 06:59 14:59 Intake Total 360 / 1200 420 / 420 Output Total 1400 / 3003 700 / 700 Balance 360 / -403 -1400 / -1803 -280 / -280 Physical Exam Const: COMMON NORMALS: no acute distress, patient oriented x3 and alert ORIENTATION/CONSCIOUSNESS: Yes awake HENMT: COMMON NORMALS: oropharynx normal Neck/C-Spine: COMMON NORMALS: no JVD Resp: COMMON NORMALS: normal respiratory effort and clear to auscultation bilaterally AUSCULTATION: clear to auscultation bilaterally Cardio: COMMON NORMALS: no JVD, regular rhythm, S1 normal heart sound present, S2 normal heart sound present and No murmurs present (Cardio) RHYTHM: regular rhythm HEART SOUNDS: S1 normal heart sound present and S2 normal heart sound present GI: COMMON NORMALS: Normal to inspection, nondistended, normoactive bowel sounds present, Soft to palpation and non-tender PALPATION: Yes Soft to palpation Extremity: COMMON NORMALS: no joint enlargement and no pedal edema Neuro: COMMON NORMALS: patient oriented x3 and moves all extremities SENSORIUM/ORIENTATION: Yes alert Skin: COMMON NORMALS: no rashes or lesions noted GENERAL SKIN EXAM: no rashes or lesions noted Urinary Catheter Management^: Coude: Cath Placed During This Visit: yes, but has since been removed by the nurse Reason for Continuing Indwelling Catheter: Decision to DC Catheter Urinary Catheter Date of Insertion: 02/18/20 Urinary Catheter Time of Insertion: 04:30 Date Urinary Catheter Removed: 02/23/20 Time Urinary Catheter Discontinued: 14:24 Mueller: Cath Placed During This Visit: yes Reason for Continuing Indwelling Catheter: Acute Urinary Retention or Obstruction Urinary Catheter Date of Insertion: 02/24/20 Urinary Catheter Time of Insertion: 01:30 Data : 02/24/20 04:00 02/24/20 04:00 A&P Assessment and plan (1) Fall: Still ache in his back, especially with activity, but not as severe, especially at rest. Sitting up in a chair for a bit. With noted deconditioning. He does require rehabilitation following compression fracture, fall, deconditioning. His is too frail to be able to care for him at home. Discussed his condition with his neurologist Dr. Fraser who has been following with him in clinic for a long time, and so with the acute condition and need for rehabilitation, she says stopping his medications at this time should be safe for the foreseeable future. She would like to see him in follow- up in office for reevaluation after discharge. Some urine retention is noted, however, suspected secondary to urinary tract infection. Discharge planning is working with the detention to make arrangements for rehabilitation there. Continue pain control. He does report some chronic back pain after multiple past injuries. Continue PT/OT. Status: Acute (2) Compression fracture: Mild T12 compression fracture. Would benefit from rehabilitation as above. Status: Acute (3) UTI (urinary tract infection): Has received empiric treatment with ceftriaxone. Has some noted urinary retention for which Mueller catheter has been placed. He is started on Flomax. Will need follow-up with urology in office. Status: Acute (4) Urinary retention: Received treatment for UTI. Continue Flomax at this time. Continue Mueller in place for now. Follow-up with urology in office for additional weaning trial and assessment. Status: Acute (5) Leukocytosis: Secondary to UTI. Resolved. Status: Acute Additional A&P Information Dementia. Continue Namenda MS. Follow up with neurology in office. History of asthma, no symptoms currently. History of GERD, continue proton pump inhibitor Hyperlipidemia, continue statin Multiple other medical problems as outlined in his past medical history. Attestations Medical Necessity Statement*: Continue hospitalization for arrangements for placement to SNF for rehabilitation. Coding Level of Care Code Acute General Merchandise Salesperson for Chg Fwd Diagnoses Fall W19.XXXA Compression fracture UTI (urinary tract infection) N39.0 Urinary retention R33.9 Leukocytosis D72.829
[2020-02-26] VITALS: BP 112/82; PULSE 92; RESP 20; TEMP 36.6; O2SAT 95
[2020-02-26 05:25] VITALS: BP 118/66; PULSE 60; RESP 20; TEMP 36.6; O2SAT 96
[2020-02-26 08:00] VITALS: BP 103/57; PULSE 56; RESP 18; TEMP 36.9; O2SAT 94
[2020-02-26] MEDS: lidocaine 5% Patch 1 PATCH TOPICAL (09:12)
[2020-02-26] MEDS: atorvastatin 40 mg Tablet 10 MG PO (09:13)
[2020-02-26] MEDS: tamsulosin 0.4 mg Capsule PO (09:13)
[2020-02-26] MEDS: enoxaparin 40 mg/0.4 mL Syringe SUBCUT (09:13)
[2020-02-26] MEDS: pantoprazole DR 40 mg Tablet PO (09:13)
[2020-02-26] MEDS: memantine 5 mg tablet 10 MG PO ×2 (09:13→17:12)
[2020-02-26] MEDS: docusate sodium 100 mg Capsule PO ×2 (09:13→17:12)
[2020-02-26] MEDS: latanoprost 0.005% Op Soln 2.5 mL Btl 1 DROP EYE-BOTH (09:13)
[2020-02-26] MEDS: sertraline 100 mg Tablet PO (09:14)
[2020-02-26 11:47] VITALS: BP 109/67; PULSE 59; RESP 16; TEMP 36.4; O2SAT 99
--- NOTE | 2020-02-26 12:16 | PM.PN ---
Subjective Subjective: Interval history: He states is doing all right. No new complaints. Vitals/I&O/Wt Last Vital Signs Temp 97.6 F 02/26/20 11:47 Pulse 59 L 02/26/20 11:47 Resp 16 02/26/20 11:47 BP 109/67 02/26/20 11:47 Pulse Ox 99 02/26/20 11:47 02/25/20 02/26/20 02/26/20 22:59 06:59 14:59 Intake Total 120 / 660 240 / 240 Output Total 300 / 1000 700 / 1700 Balance -180 / -340 -700 / -1040 240 / 240 Weight last 48 hrs Weight 44.197 kg Physical Exam Const: COMMON NORMALS: no acute distress, patient oriented x3 and alert ORIENTATION/CONSCIOUSNESS: Yes awake HENMT: COMMON NORMALS: oropharynx normal Neck/C-Spine: COMMON NORMALS: no JVD Resp: COMMON NORMALS: normal respiratory effort and clear to auscultation bilaterally AUSCULTATION: clear to auscultation bilaterally Cardio: COMMON NORMALS: no JVD, regular rhythm, S1 normal heart sound present, S2 normal heart sound present and No murmurs present (Cardio) RHYTHM: regular rhythm HEART SOUNDS: S1 normal heart sound present and S2 normal heart sound present GI: COMMON NORMALS: Normal to inspection, nondistended, normoactive bowel sounds present, Soft to palpation and non-tender PALPATION: Yes Soft to palpation Extremity: COMMON NORMALS: no joint enlargement and no pedal edema Neuro: COMMON NORMALS: patient oriented x3 and moves all extremities SENSORIUM/ORIENTATION: Yes alert Skin: COMMON NORMALS: no rashes or lesions noted GENERAL SKIN EXAM: no rashes or lesions noted Urinary Catheter Management^: Coude: Cath Placed During This Visit: yes, but has since been removed by the nurse Reason for Continuing Indwelling Catheter: Decision to DC Catheter Urinary Catheter Date of Insertion: 02/18/20 Urinary Catheter Time of Insertion: 04:30 Date Urinary Catheter Removed: 02/23/20 Time Urinary Catheter Discontinued: 14:24 Mueller: Cath Placed During This Visit: yes Reason for Continuing Indwelling Catheter: Acute Urinary Retention or Obstruction Urinary Catheter Date of Insertion: 02/24/20 Urinary Catheter Time of Insertion: 01:30 Data : 02/24/20 04:00 02/24/20 04:00 A&P Assessment and plan (1) Fall: Discharge planning notes reviewed. Working on placement to rehabilitation. Pain in back especially with activity. Currently laying in bed. Raising his legs. With noted deconditioning. He does require rehabilitation following compression fracture, fall, deconditioning. His is too frail to be able to care for him at home. Discussed his condition with his neurologist Dr. Fraser who has been following with him in clinic for a long time, and so with the acute condition and need for rehabilitation, she says stopping his medications at this time should be safe for the foreseeable future. She would like to see him in follow-up in office for reevaluation after discharge. Some urine retention is noted, however, suspected secondary to urinary tract infection. [facility] with [facility] to make arrangements for [facility] there. Continue pain control. He does report some chronic back pain after multiple past injuries. Continue PT/OT. Status: Acute (2) Compression fracture: Mild T12 compression fracture. Would benefit from rehabilitation as above. Status: Acute (3) UTI (urinary tract infection): Has received empiric treatment with ceftriaxone. Has some noted urinary retention for which Mueller catheter has been placed. He is started on Flomax. Will need follow-up with urology in office. Status: Acute (4) Urinary retention: Received treatment for UTI. Continue Flomax at this time. Failed voiding trial. Continue Mueller in place for now. Follow-up with urology in office for additional weaning trial and assessment. Status: Acute (5) Leukocytosis: Secondary to UTI. Resolved. Status: Acute Additional A&P Information Dementia. Continue Namenda MS. Follow up with neurology in office. History of asthma, no symptoms currently. History of GERD, continue proton pump inhibitor Hyperlipidemia, continue statin Multiple other medical problems as outlined in his past medical history. Attestations Medical Necessity Statement*: Continue arrangements for placement to rehabilitation. Coding Level of Care Code Acute Electric Brain Wave Equipment Mechanic for g Fwd Diagnoses Fall W19.XXXA Compression fracture UTI (urinary tract infection) N39.0 Urinary retention R33.9 Leukocytosis D72.829
[2020-02-26 16:00] VITALS: BP 120/70; PULSE 86; RESP 18; TEMP 36.8; O2SAT 98
[2020-02-26 19:31] VITALS: BP 112/64; PULSE 66; RESP 16; TEMP 36.6; O2SAT 97
[2020-02-27] VITALS (7 sets, daily range): BP systolic 108–123; BP diastolic 60–71; PULSE 55–76; RESP 15–20; TEMP 36.6–37.1; O2SAT 94–99
[2020-02-27] MEDS: latanoprost 0.005% Op Soln 2.5 mL Btl 1 DROP EYE-BOTH (09:02)
[2020-02-27] MEDS: tamsulosin 0.4 mg Capsule PO (09:03)
[2020-02-27] MEDS: atorvastatin 40 mg Tablet 10 MG PO (09:03)
[2020-02-27] MEDS: sertraline 100 mg Tablet PO (09:03)
[2020-02-27] MEDS: memantine 5 mg tablet 10 MG PO ×2 (09:03→17:53)
[2020-02-27] MEDS: pantoprazole DR 40 mg Tablet PO (09:03)
[2020-02-27] MEDS: docusate sodium 100 mg Capsule PO ×2 (09:03→17:53)
[2020-02-27] MEDS: lidocaine 5% Patch 1 PATCH TOPICAL ×2 (09:04→21:06)
[2020-02-27] MEDS: enoxaparin 40 mg/0.4 mL Syringe SUBCUT (09:04)
--- NOTE | 2020-02-27 10:10 | PC.CHAP ---
Pastoral Care Encounter/Spiritual Assessment Type of Contact [] Declined radiology teacher visit [] Patient/Family/Request visit [] Outpatient visit [] Follow-up visit [] Physician referral [] Code/Alert [x] Routine visit [] Staff referral [] Actively dying [] Patient sleeping [] Family support [] [] Out of room [] Palliative care [] [] Receiving care in room [] Pre-surgical visit [] Trauma [] Long length of stay [] ICU visit [] Other: Relational/Emotional Strength [x] Patient feels connected with others/family/visitors/staff [] Distress [] Loneliness/isolation [] Abandonment Spirituality of Patient [x] Person of Manuel[place] [x] Attends Jewish of their [place] [x] Believes in Prayer [] Reads Bible or Presybeterian materials [] There are Spiritual issues to be addressed Staffing Operations Manager Interventions [x] Prayer [x] Active listening [x] Non-anxious presence [x] Spiritual/emotional support [] Crisis/trauma care [] Spiritual counseling [] Bereavement support [] Provided bereavement packet [] Provided Bible/devotional materials [] Provided toy/stuffed animal, coloring book to patient or family member [] Provided Communion [] Anointing/[place] [] Salvation [x] Completed spiritual assessment [] Other: Impact on Illness or Injury [] Angry [] Fearful [] Anxious [] Often cries [] Exhaustion [] Unable to work [] Unable to attend orthodoxy [] Unable to walk/stand [] Unable to read [] Unable to drive [] Unable to eat/drink [] Unable to sleep [] Unable to be with family [] Patient intubated [x] Other: Summary Patient is a professed believer in the [place] of [place] and attends a local Sikh Orthodoxy. Time spent with patient 5 minutes
--- NOTE | 2020-02-27 11:10 | P.PN_ITS ---
Subjective Subjective: Interval history: He denies new developments overnight. Denies any worsening of his symptoms. Vitals/I&O/Wt Last Vital Signs Temp 98.1 F 02/27/20 07:53 Pulse 76 02/27/20 07:53 Resp 20 H 02/27/20 07:53 BP 122/60 02/27/20 07:53 Pulse Ox 95 02/27/20 07:53 02/26/20 02/27/20 02/27/20 22:59 06:59 14:59 Intake Total 240 / 480 100 / 580 360 / 360 Output Total 2200 / 2200 Balance 240 / 480 -2100 / -1620 360 / 360 Weight last 48 hrs Weight 44.197 kg Physical Exam Const: COMMON NORMALS: no acute distress, patient oriented x3 and alert ORIENTATION/CONSCIOUSNESS: Yes awake HENMT: COMMON NORMALS: oropharynx normal Neck/C-Spine: COMMON NORMALS: no JVD Resp: COMMON NORMALS: normal respiratory effort and clear to auscultation bilaterally AUSCULTATION: clear to auscultation bilaterally Cardio: COMMON NORMALS: no JVD, regular rhythm, S1 normal heart sound present, S2 normal heart sound present and No murmurs present (Cardio) RHYTHM: regular rhythm HEART SOUNDS: S1 normal heart sound present and S2 normal heart sound present GI: COMMON NORMALS: Normal to inspection, nondistended, normoactive bowel sounds present, Soft to palpation and non-tender PALPATION: Yes Soft to palpation Extremity: COMMON NORMALS: no joint enlargement and no pedal edema Neuro: COMMON NORMALS: patient oriented x3 and moves all extremities SENSORIUM/ORIENTATION: Yes alert Skin: COMMON NORMALS: no rashes or lesions noted GENERAL SKIN EXAM: no rashes or lesions noted Urinary Catheter Management^: Coude: Cath Placed During This Visit: yes, but has since been removed by the nurse Reason for Continuing Indwelling Catheter: Decision to DC Catheter Urinary Catheter Date of Insertion: 02/18/20 Urinary Catheter Time of Insertion: 04:30 Date Urinary Catheter Removed: 02/23/20 Time Urinary Catheter Discontinued: 14:24 Mueller: Cath Placed During This Visit: yes Reason for Continuing Indwelling Catheter: Acute Urinary Retention or Obstruction Urinary Catheter Date of Insertion: 02/24/20 Urinary Catheter Time of Insertion: 01:30 Data : 02/24/20 04:00 02/24/20 04:00 A&P Assessment and plan (1) Fall: Discharge planning working on placement. Pending insurance and facility approval to [facility]. Pain in back with activity. He is spending some time sitting up in a chair. Takes several short steps with physical therapy. Requires assistance pushing walker. With noted deconditioning. He does require rehabilitation following compression fracture, fall, deconditioning. His is too frail to be able to care for him at home. Discussed his condition with his neurologist Dr. Fraser who has been following with him in clinic for a long time, and so with the acute condition and need for rehabilitation, she says stopping his medications at this time should be safe for the foreseeable future. She would like to see him in follow- up in office for reevaluation after discharge. Some urine retention is noted, however, suspected secondary to urinary tract infection. Discharge planning is working with the senior care to make arrangements for rehabilitation there. Continue pain control. He does report some chronic back pain after multiple past injuries. Continue PT/OT. Status: Acute (2) Compression fracture: Mild T12 compression fracture. Would benefit from rehabilitation as above. Status: Acute (3) UTI (urinary tract infection): Has received empiric treatment with ceftriaxone. Has some noted urinary retention for which Mueller catheter has been placed. He is started on Flomax. Will need follow-up with urology in office. Status: Acute (4) Urinary retention: Received treatment for UTI. Continue Flomax at this time. Failed voiding trial. Continue Mueller in place for now. Follow-up with urology in office for additional weaning trial and assessment. Status: Acute (5) Leukocytosis: Secondary to UTI. Resolved. Status: Acute Additional A&P Information Dementia. Continue Namenda MS. Follow up with neurology in office. History of asthma, no symptoms currently. History of GERD, continue proton pump inhibitor Hyperlipidemia, continue statin Multiple other medical problems as outlined in his past medical history. Attestations Medical Necessity Statement*: Continue efforts for placement for rehabilitation to SNF. Coding Level of Care Code Acute Nut Dehydrator Operator for Chg Fwd Diagnoses Fall W19.XXXA Compression fracture UTI (urinary tract infection) N39.0 Urinary retention R33.9 Leukocytosis D72.829
--- NOTE | 2020-02-27 11:42 | PC.SOCIAL ---
IMM Updated Pg. 2 of IMM updated with patient, who verbalized understanding. Copy provided to patient.
[2020-02-28 04:00] VITALS: BP 127/72; PULSE 60; RESP 20; TEMP 36.6
[2020-02-28 07:15] VITALS: BP 130/70; PULSE 63; RESP 18; TEMP 36.8; O2SAT 94
[2020-02-28] MEDS: enoxaparin 40 mg/0.4 mL Syringe SUBCUT (08:51)
[2020-02-28] MEDS: lidocaine 5% Patch 1 PATCH TOPICAL (08:52)
[2020-02-28] MEDS: docusate sodium 100 mg Capsule PO (08:53)
[2020-02-28] MEDS: sertraline 100 mg Tablet PO (08:53)
[2020-02-28] MEDS: memantine 5 mg tablet 10 MG PO (08:53)
[2020-02-28] MEDS: pantoprazole DR 40 mg Tablet PO (08:53)
[2020-02-28] MEDS: atorvastatin 40 mg Tablet 10 MG PO (08:53)
[2020-02-28] MEDS: tamsulosin 0.4 mg Capsule PO (08:53)
[2020-02-28] MEDS: latanoprost 0.005% Op Soln 2.5 mL Btl 1 DROP EYE-BOTH (08:55)
--- NOTE | 2020-02-28 09:25 | PC.NURSE ---
pt agreeable and appropriate this morning. pt able to take am PO meds well.
[2020-02-28 10:38] VITALS: BP 131/71; PULSE 60; RESP 16; TEMP 36.9; O2SAT 94
--- NOTE | 2020-02-28 11:52 | PM.DCS ---
Discharge Providers Date of Admission: 02/18/20 05:18 Date of Discharge: February 28, 2020 Attending Provider at Admission: Everette Donahue MD Attending Provider at Discharge: Bruce Leigh Primary Care Provider: Parmjit Sanchez MD Diagnoses at Discharge Discharge Diagnosis (1) Fall: Status: Acute (2) Compression fracture: Status: Acute (3) UTI (urinary tract infection): Status: Acute (4) Urinary retention: Status: Acute (5) Leukocytosis: Status: Acute Reason for Visit Reason for Visit: BACK PAIN POST FALL Hospital Course Hospital Course: Pleasant 74 yo gentleman with history of MS, mild dementia, came to the hospital due to pain in his back after a fall, found to have urinary retention in ER for which Mueller catheter was placed, with initiation of Flomax, subsequently found to have urinary tract infection for which received a course of treatment with Rocephin. Mild T12 vertebral compression fracture was noted on imaging which was treated symptomatically, and he had been assessed by physical therapy. Due to physical deconditioning, poor balance, reduced safety awareness, he is requiring additional rehabilitation for which he was kindly accepted over at [facility]. Per his neurologist we will at this time discontinue dalfampridine, he may continue Glatopa injections, although his disease process overall has been stable. He is requested to follow-up with the neurologist in office. He is also referred to a urologist and at this time due to failed voiding trial Mueller catheter was kept in place, tamsulosin continued, until additional urology assessment and voiding trial in office. He otherwise reports that his pain has been improving, he states that overall he is feeling well, and will continue working with physical therapy. He is excited to be discharged and start rehabilitation over at the SNF. Discussed his condition, treatment and plans for further follow-up with his as well who is in agreement and answered all her questions. Physical Exam Const: COMMON NORMALS: no acute distress, patient oriented x3 and alert ORIENTATION/CONSCIOUSNESS: Yes awake HENMT: COMMON NORMALS: oropharynx normal Neck/C-Spine: COMMON NORMALS: no JVD Resp: COMMON NORMALS: normal respiratory effort and clear to auscultation bilaterally AUSCULTATION: clear to auscultation bilaterally Cardio: COMMON NORMALS: no JVD, regular rhythm, S1 normal heart sound present, S2 normal heart sound present and No murmurs present (Cardio) RHYTHM: regular rhythm HEART SOUNDS: S1 normal heart sound present and S2 normal heart sound present GI: COMMON NORMALS: Normal to inspection, nondistended, normoactive bowel sounds present, Soft to palpation and non-tender PALPATION: Yes Soft to palpation Extremity: COMMON NORMALS: no joint enlargement and no pedal edema Neuro: COMMON NORMALS: patient oriented x3 and moves all extremities SENSORIUM/ORIENTATION: Yes alert Skin: COMMON NORMALS: no rashes or lesions noted GENERAL SKIN EXAM: no rashes or lesions noted Urinary Catheter Management^: Coude: Cath Placed During This Visit: yes, but has since been removed by the nurse Reason for Continuing Indwelling Catheter: Decision to DC Catheter Urinary Catheter Date of Insertion: 02/18/20 Urinary Catheter Time of Insertion: 04:30 Date Urinary Catheter Removed: 02/23/20 Time Urinary Catheter Discontinued: 14:24 Mueller: Cath Placed During This Visit: yes Reason for Continuing Indwelling Catheter: Acute Urinary Retention or Obstruction Urinary Catheter Date of Insertion: 02/24/20 Urinary Catheter Time of Insertion: 01:30 Discharge Data Data Completed and Pending: Completed Studies During Hospitalization Category Date Time Status CT chest abd pel w con* Urgent Cat Scan 02/18/20 01:[address] head wo con* 7 0450 Urgent Cat Scan 02/17/20 23:36 Completed XR chest 1V em ble [id number] Stat Exams 02/17/20 23:39 Completed Vitals: Last Vital Signs Temp 98.4 F 02/28/20 10:38 Pulse 60 02/28/20 10:38 Resp 16 02/28/20 10:38 BP 131/71 02/28/20 10:38 Pulse Ox 94 02/28/20 10:38 Discharge Plan Discharge Patient Disposition: Xfer [facility] Condition: Stable Prescriptions: New tamsulosin 0.4 mg Capsule 0.4 mg PO DAILY Qty: 30 RF: 0 Continued memantine 10 mg tablet 10 mg PO BID Qty: 180 RF: 1 sertraline 100 mg tablet 100 mg PO DAILY Qty: 90 RF: 1 baclofen 10 mg tablet 10 mg PO TID Qty: 270 RF: 1 atorvastatin 10 mg tablet 10 mg PO DAILY RF: 0 latanoprost 0.005 % drops 1 drp ophthalmic (eye) DAILY RF: 0 Glatopa 40 mg/mL syringe See Rx Instructions .ROUTE .COMPLEX RF: 0 Discontinued dalfampridine [Ampyra] 10 mg tablet extended release 12 hr 10 mg PO BID Qty: 60 RF: 3 Discharge Orders: Discharge Order (Routine); Ordered 02/28/20 Ordered By: Bruce Leigh Referrals: [facility] [Outside] Awilda Fraser MD [Physician] - 1 week (MS) Alexy Resendez MD [Physician] - 1 week Parmjit Sanchez MD [Primary Care Provider] - 4-7 days (Fall, vertebral Fx, UTI, urine retention, MS) Discharge Diet: Cardiac and Soft Mechanical Discharge Activity: Increase activity as tolerated and As per PT/OT instructions Activity Restrictions/Additional Instructions: Maintain fall precautions. Continue working with physical therapy. Symptomatic treatment for back pain. Consider referral to pain management depending on improvement. Maintain Mueller catheter in place, continue Flomax until can be seen by urology for voiding trial and additional assessment. Follow-up with neurology in office. Per discussion with Dr. Fraser at this time dalfampridine (Ampyra) is discontinued. Gloatopa can be continued as before. Discharge Attestations Time Spent in Discharge Care*: greater than 30 min Quality Metrics Clinical Quality Measures During this hospital stay, did patient experience: None Coding Level of Care Code Acute Hand Filer Balance Wheel for Chg Fwd Diagnoses Fall W19.XXXA Compression fracture UTI (urinary tract infection) N39.0 Urinary retention R33.9 Leukocytosis D72.829
--- NOTE | 2020-02-28 12:04 | PC.NURSE ---
pt up to chair with PT
--- NOTE | 2020-02-28 12:27 | PC.CHAP ---
Pastoral Care Encounter/Spiritual Assessment Type of Contact [] Declined vector control specialist visit [] Patient/Family/Request visit [] Outpatient visit [X] Follow-up visit [] Physician referral [] Code/Alert [X] Routine visit [] Staff referral [] Actively dying [] Patient sleeping [] Family support [] [] Out of room [] Palliative care [] [] Receiving care in room [] Pre-surgical visit [] Trauma [X] Long length of stay [] ICU visit [] Other: Relational/Emotional Strength [X] Patient feels connected with others/family/visitors/staff [] Distress [] Loneliness/isolation [] Abandonment Spirituality of Patient [X] Person of Manuela [X] Attends Yazidi of their [place]a [X] Believes in Prayer [X] Reads Bible or Mormon materials [] There are Spiritual issues to be addressed Manager Of Case Management Interventions [X] Prayer [X] Active listening [X] Non-anxious presence [] Spiritual/emotional support [] Crisis/trauma care [] Spiritual counseling [] Bereavement support [] Provided bereavement packet [X] Provided Bible/devotional materials [] Provided toy/stuffed animal, coloring book to patient or family member [] Provided Communion [] Anointing/[place] [] Salvation [X] Completed spiritual assessment [] Other: Impact on Illness or Injury [] Angry [] Fearful [] Anxious [] Often cries [] Exhaustion [] Unable to work [] Unable to attend uatsdin [] Unable to walk/stand [] Unable to read [] Unable to drive [] Unable to eat/drink [] Unable to sleep [] Unable to be with family [] Patient intubated [] Other: Summary PT IS OLDER GENTLEMAN WHO HAS BEEN IN HOSPITAL SEVERAL DAYS AND EXPECTS TO REMAIN A FEW MORE DAYS. HE IS CONTENT WITH THIS ARRANGEMENT FOR NOW. WHEN HE IS DISCHARGED, HE HOPES TO BE ABLE TO RETURN TO HIS FAMILY WITH WHOM HE HAS BEEN LIVING. PT WAS IN GOOD SPIRITS. 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
[2020-02-28 12:47] VITALS: BP 131/71; PULSE 60; RESP 16; TEMP 36.9; O2SAT 94
--- NOTE | 2020-02-28 13:12 | PC.NURSE ---
report called to JONATHON Wong at [facility]. all questions were answered.
[2020-02-28 14:25] VITALS: BP 131/71; PULSE 60; RESP 16; TEMP 36.9; O2SAT 94
== END 2020-02-28 14:00 | disposition skilled nursing facility (03) ==
LOC: ER 02-18 04:30 → MEDSURG 02-18 07:21
PROVIDERS: Physician Assistant; Student in an Organized Health Care Education/Training Program; Admitting Provider Internal Medicine; PCP Family Medicine; Visit Provider Internal Medicine
DX: S22.089A Unspecified fracture of T11-T12 vertebra, initial encounter for closed fracture (principal); W19.XXXA Unspecified fall, initial encounter; N39.0 Urinary tract infection, site not specified; G35 Multiple sclerosis; F03.90 Unspecified dementia, unspecified severity, without behavioral disturbance, psychotic disturbance, mood disturbance, and anxiety; M54.9 Dorsalgia, unspecified; G89.29 Other chronic pain; K21.0 Gastro-esophageal reflux disease with esophagitis; E78.5 Hyperlipidemia, unspecified
CPT/HCPCS: 12345; 36415; 51702; 51798; 70450; 71045; 71260; 74177; 80048; 80051; 80053; 80306; 80307; 81001; 81003; 82810; 83605; 83735; 83986; 84443; 84484; 85025; 87040; 87086; 93005; 93010; 96372; 97110; 97116; 97161; 97167; 97530; 97535; 99284; A9281; G0378; J0696; J1650; J1956; J7030; J7040

== ENCOUNTER 2020-03-13 20:11 | Inpatient (IN) | payer MEDICARE, SELFPAY ==
[2020-03-13 20:15] VITALS: BP 115/64; PULSE 92; RESP 20; TEMP 39.4; O2SAT 94; BMI 15.7
--- NOTE | 2020-03-13 20:19 | XRR_ITS ---
PROCEDURE INFORMATION: Exam: XR Chest, 1 View Exam date and time: 03/13/2020 8:34 PM Age: 75 years old Clinical indication: Dyspnea; Additional info: Ams/fever TECHNIQUE: Imaging protocol: XR of the chest Views: 1 view. COMPARISON: CT chest abd pel w con* 02/18/2020 2:07 AM FINDINGS: Lungs: Airspace opacity and volume loss in the left lung base. Chronic interstitial scarring in both lung bases. Pleural space: Unremarkable. No pleural effusion. No pneumothorax. Heart/Mediastinum: Large hiatal hernia. The the heart size is normal. Bones/joints: Unremarkable. XR/XR chest 1V portable [id number] IMPRESSION: Opacity in the left base could represent atelectasis, pneumonia, or aspiration.
--- NOTE | 2020-03-13 20:21 | ECG_ITS ---
[facility] [place] [facility] Date: 2020-03-13 Pat Name: Kristopher Linda Department: Room: Gender: Male Alterations Expert: : 1945 Requested By: Marielle Bird Order Number: [id number] Kavon MD: Elizabeth Cade M.D. Measurements Intervals [place] Rate: 89 P: 66 GA: 152 QRS: 74 QRSD: 117 T: 53 QT: 367 QTc: 448 Interpretive Statements SINUS RHYTHM MODERATE INTRAVENTRICULAR CONDUCTION DELAY [110+ ms QRS DURATION] Compared to ECG 02/19/2020 12:37:20 Intraventricular conduction delay now present Sinus bradycardia no longer present Electronically Signed On 03-14-2020 15:09:17 CDT by Elizabeth Cade M.D. [email or web address]
[2020-03-13 20:50] LABS: Basophils % 0.2 %; Eosinophils % 0.3 %; Hematocrit 37.9 % (42.0-52.0); Hemoglobin 11.5 g/dL (11.7-16.6); Lymphocytes # 0.3 10^3/uL (0.8-4.8); Lymphocytes % 2.4 %; Mean Corpuscular HGB Conc 30.3 g/dL (30.0-36.0); Mean Corpuscular Hemoglobin 29.6 pg (28.0-34.0); Mean Corpuscular Volume 97.7 fL (80-94); Mean Platelet Volume 9.7 fL (7.4-10.4); Monocytes # 0.7 10^3/uL (0.2-0.9); Monocytes % 5.9 %; Neutrophils % 90.7 %; Nucleated Red Blood Cells % 0 %; Platelet Count 171 10^3/cmm (130-400); Red Blood Count 3.88 10^6/uL (4.1-5.3); Red Cell Distribution Width 12.8 % (12.1-15.1); White Blood Count 11.8 10^3/uL (4.0-10.0)
[2020-03-13 20:52] VITALS: BP 124/63; PULSE 92; RESP 18; O2SAT 96
--- NOTE | 2020-03-13 20:54 | W.ED.AMS ---
HPI - Altered Mental Status General: Chief Complaint: Altered Mental Status Stated Complaint: FEVER Time Seen by Provider: 03/13/20 20:17 Source: patient and EMS Mode of arrival: EMS Limitations: altered mental status History of Present Illness: HPI narrative: Kristopher is a 75-year-old male sent in from the group home with report of altered mental status, fever and cloudy urine. It is unclear why but the patient has a chronic indwelling Mueller catheter that is changed once a month. It is uncertain what it was last changed. The patient has no complaints except for chronic back pain secondary to compression fractures. Patient is somewhat confused but cooperative. History is limited secondary to his altered mental status and is taken primarily from EMS and old charts. Review of Systems General: Reports: ROS unobtainable due to mental status PFSH ED PFSH: Medical History (Updated 03/13/20 @ 23:22 by Marielle Fleming) Asthma Cancer of sebaceous glands Chalazion Compression fracture t11-t12 Dementia Depression Dysuria Esophageal reflux Gastroesophageal reflux disease Glaucoma History of multiple sclerosis Hypercholesterolemia Hyperlipidemia Impairment of cognitive function Multiple sclerosis Onychodystrophy Peripheral arterial disease Pyoderma Sacroiliitis Urinary retention Viral warts Surgical History (Updated 03/13/20 @ 22:20 by Pedro Pablo Keen MD) No pertinent past surgical history Family History Other CAD (coronary artery disease) Cancer Diabetes Denies family history of Clotting disorder Dementia Hyperlipidemia Psychiatric illness Chronic kidney disease (CKD) Suicide Anesthesia complication Bleeding disorder Family history of premature coronary artery disease Lung disease Hypertension Stroke Social History Smoking and tobacco status: former smoker Alcohol intake: never Housing: Custodial Marital status: Physical Exam Const: COMMON NORMALS: no acute distress, no limitations and well nourished GENERAL APPEARANCE: cooperative, ill appearing and frail appearing HENMT: COMMON NORMALS: normocephalic, atraumatic, external ears normal, EAC's normal and Normal external nose present HEAD & SCALP: normal to inspection, normocephalic and atraumatic FACE & SINUS: normal facial exam and face symmetric NOSE: Normal external nose present and Normal nares present EXTERNAL EAR: Yes external ears normal EXTERNAL AUDITORY CANAL: EAC's normal MOUTH: Normal oral and palatal mucosa present, lip normal and tongue normal Eye: COMMON NORMALS: Equal, round and reactive pupils present and conjunctivae normal GENERAL EYE: appearance normal, both eyes and all related structures ALIGNMENT: Yes alignment normal PERIORBITAL: periorbital findings normal EYELID: eyelids normal CONJUNCTIVA: Yes conjunctivae normal SCLERA: sclerae normal PUPIL: Yes Equal, round and reactive pupils present Neck/C-Spine: COMMON NORMALS: full ROM, no lymphadenopathy, supple, no meningeal signs and no JVD GENERAL: Yes normal visual inspection and Yes trachea midline Chest: COMMONS NORMALS: normal inspection of the chest and normal palpation of entire chest wall Resp: COMMON NORMALS: normal respiratory effort, No retractions, No use of accessory muscles and clear to auscultation bilaterally EFFORT & INSPECTION: Yes able to speak in complete sentences and Yes symmetric chest movement AUSCULTATION: clear to auscultation bilaterally, no crackles, no rales, no rhonchi and no wheezes Cardio: COMMON NORMALS: no JVD, regular rate, regular rhythm, S1 normal heart sound present and S2 normal heart sound present RATE: regular rate RHYTHM: regular rhythm HEART SOUNDS: S1 normal heart sound present, S2 normal heart sound present, no click, no gallops, no murmurs, no rubs and abnormal split S2 GI: COMMON NORMALS: Soft to palpation and No hepatosplenomegaly present PALPATION: Yes Soft to palpation, No Tenderness to palpation present (GI), No Guarding due to palpation present (GI), No Rigid due to palpation, Yes No hepatosplenomegaly present, No Hernia present, No Palpable mass present and No Pulsatile mass present : COMMON NORMALS: Yes no CVA tenderness BLADDER/KIDNEY EXAM: Yes no CVA tenderness Back/Pelvis: COMMON NORMALS: no CVA tenderness, thoracic and lumbar spine normal to inspection, no thoracic nor lumbar tenderness and thoraco-lumbar ROM normal Extremity: COMMON NORMALS: normal to inspection, full ROM, capillary refill normal, no joint enlargement, no clubbing, cyanosis or edema and no calf tenderness Neuro: COMMON NORMALS: CN's II-XII intact bilaterally, moves all extremities, no focal motor deficits and no sensory deficits noted MENINGEAL SIGNS: Yes no meningeal signs SPEECH: speech normal Psych: COMMON NORMALS: mental status grossly normal, Normal thought process present, cooperative, normal affect, speech normal and activity/motor behavior normal SPEECH: Yes normal speech THOUGHT PROCESS: Normal thought process present Skin: COMMON NORMALS: no rashes or lesions noted, turgor normal, no jaundice, no petechiae and no mottling GENERAL SKIN EXAM: no rashes or lesions noted and turgor normal Urinary Catheter Management^: Mueller: Cath Placed During This Visit: yes Reason for Continuing Indwelling Catheter: Acute Urinary Retention or Obstruction Urinary Catheter Date of Insertion: 03/13/20 Urinary Catheter Time of Insertion: 20:51 Course Vital Signs: Vital signs: Vital Signs Temperature 103 F H 03/13/20 20:15 Pulse Rate 93 03/13/20 22:35 Respiratory Rate 16 03/13/20 22:35 Blood Pressure 98/52 03/13/20 22:35 Pulse Oximetry 94 03/13/20 22:35 MDM - Altered Mental Status MDM Narrative: Medical decision making narrative: Kristopher is a 75-year-old male who comes to the group home with altered mental status, fever and cloudy urine. Work-up here shows pneumonia and likely UTI. He has been covered with Rocephin and Primaxin. The case was endorsed to Dr. Keen and he agrees to admission. Patient is hemodynamically stable at this time. Lab Data: Attestation: I reviewed the patient's lab results. Labs: Lab Results 03/13/20 03/13/20 03/13/20 Range/Units 20:35 20:35 20:35 WBC 11.8 H (4.0-10.0) 10^3/ uL RBC 3.88 L (4.1-5.3) 10^6/u L Hgb 11.5 L (11.7-16.6) g/dL Hct 37.9 L (42.0-52.0) % MCV 97.7 H (80-94) fL MCH 29.6 (28.0-34.0) pg MCHC 30.3 (30.0-36.0) g/dL RDW 12.8 (12.1-15.1) % Plt Count 171 (130-400) 10^3/c mm MPV 9.7 (7.4-10.4) fL Neut % (Auto) 90.7 % Lymph % (Auto) 2.4 % [place] % (Auto) 5.9 % Eos % (Auto) 0.3 % Baso % (Auto) 0.2 % Neut # (Auto) 10.70 H (1.8-7.7) 10^3/u L Lymph # (Auto) 0.3 L (0.8-4.8) 10^3/u L [place] # (Auto) 0.7 (0.2-0.9) 10^3/u L Eos # (Auto) 0.0 (0.0-0.8) 10^3/u L Baso # (Auto) 0.0 (0.0-0.1) 10^3/u L Nucleated RBC % (a uto) 0 % Nucleated RBCs # 0.0 /100WBC Sodium 139 (136-145) mmol/L Potassium 4.5 (3.5-5.1) mmol/L Chloride 103 (98-107) mmol/L Carbon Dioxide 30 H (22-29) mmol/L Anion Gap 10.5 (5-19) BUN 18 (8-23) mg/dL Creatinine 1.1 (0.7-1.2) mg/dL GFR Calculation Not Reportable Glucose 132 H (65-115) mg/dL Calculated Osmolal ity 286 (285-295) mOsm/k g Lactic Acid 1.6 (0.5-2.2) mmol/L Calcium 8.4 L (8.5-10.5) mg/dL Magnesium 2.0 (1.7-2.3) mg/dL Total Bilirubin 0.2 (0.15-1.2) mg/dL AST 18 (0-40) U/L ALT 17 (0-41) U/L Alkaline Phosphata se 121 (40-130) IU/L Troponin T Baselin e (0-15) ng/L Troponin T 120 Min belkofski (0-15) ng/L Delta Troponin T (0-10) ABS# Total Protein 5.9 L (6.6-8.7) g/dL Albumin 3.0 L (3.5-5.2) g/dL Globulin 2.9 (1.3-4.6) g/dL Urine Color (Yellow) Urine Appearance (CLEAR) Urine pH (5-7) Ur Specific Gravit y (1.005-1.030) Urine Protein (Negative) Urine Glucose (UA) (Normal) Urine Ketones (Negative) Urine Blood (Negative) Urine Nitrate (Negative) Urine Bilirubin (NEGATIVE) Urine Urobilinogen (Negative) mg/dL Ur Leukocyte Susanne ase (Negative) Urine RBC (0-2) /hpf Urine WBC (0-5) /hpf Ur Squamous Epith Cells (0-5) Amorphous Sediment Urine Bacteria (NONE) 03/13/20 03/13/20 03/13/20 Range/Units 20:35 20:57 22:19 WBC (4.0-10.0) 10^3/ uL RBC (4.1-5.3) 10^6/u L Hgb (11.7-16.6) g/dL Hct (42.0-52.0) % MCV (80-94) fL MCH (28.0-34.0) pg MCHC (30.0-36.0) g/dL RDW (12.1-15.1) % Plt Count (130-400) 10^3/c mm MPV (7.4-10.4) fL Neut % (Auto) % Lymph % (Auto) % [place] % (Auto) % Eos % (Auto) % Baso % (Auto) % Neut # (Auto) (1.8-7.7) 10^3/u L Lymph # (Auto) (0.8-4.8) 10^3/u L [place] # (Auto) (0.2-0.9) 10^3/u L Eos # (Auto) (0.0-0.8) 10^3/u L Baso # (Auto) (0.0-0.1) 10^3/u L Nucleated RBC % (a uto) % Nucleated RBCs # /100WBC Sodium (136-145) mmol/L Potassium (3.5-5.1) mmol/L Chloride (98-107) mmol/L Carbon Dioxide (22-29) mmol/L Anion Gap (5-19) BUN (8-23) mg/dL Creatinine (0.7-1.2) mg/dL GFR Calculation Glucose (65-115) mg/dL Calculated Osmolal ity (285-295) mOsm/k g Lactic Acid (0.5-2.2) mmol/L Calcium (8.5-10.5) mg/dL Magnesium (1.7-2.3) mg/dL Total Bilirubin (0.15-1.2) mg/dL AST (0-40) U/L ALT (0-41) U/L Alkaline Phosphata se (40-130) IU/L Troponin T Baselin e 34 H (0-15) ng/L Troponin T 120 Min belkofski 34.12 H (0-15) ng/L Delta Troponin T 0.12 (0-10) ABS# Total Protein (6.6-8.7) g/dL Albumin (3.5-5.2) g/dL Globulin (1.3-4.6) g/dL Urine Color Yellow (Yellow) Urine Appearance Sl cloudy A (CLEAR) Urine pH 7 (5-7) Ur Specific Gravit y 1.005 (1.005-1.030) Urine Protein 1+ H (Negative) Urine Glucose (UA) Norm (Normal) Urine Ketones Negative (Negative) Urine Blood 3+ H (Negative) Urine Nitrate Negative (Negative) Urine Bilirubin Neg (NEGATIVE) Urine Urobilinogen 1 H (Negative) mg/dL Ur Leukocyte Susanne ase 2+ H (Negative) Urine RBC Too numerous to c nt H (0-2) /hpf Urine WBC Too numerous to c nt H (0-5) /hpf Ur Squamous Epith Cells 0-4 H (0-5) Amorphous Sediment Not Reportable Urine Bacteria 1+ H (NONE) Imaging Data^: CXR: Attestation: I personally reviewed and interpreted this imaging study as follows: My impression: Possible left lower lobe infiltrate. EKG Data^: EKG 1: Attestation: I personally reviewed and interpreted this EKG as follows: EKG interpretation date: 03/13/20 EKG interpretation time: 20:55 Interpretation: Normal sinus rhythm at 94 beats a minute, nonspecific ST and T wave changes. Wandering baseline artifact present. EKG 2: Attestation: I personally reviewed and interpreted this EKG as follows: EKG interpretation date: 03/13/20 EKG interpretation time: 22:33 Interpretation: Normal sinus rhythm at 83 beats a minute, no acute ST-T wave changes Discharge Plan Discharge Patient Disposition: Admitted As Inpatient Clinical Impression: Sepsis, Pneumonia, Acute UTI Condition: Stable Prescriptions: No Action memantine 10 mg tablet 10 mg PO BID Qty: 180 RF: 1 baclofen 10 mg tablet 10 mg PO TID Qty: 270 RF: 1 Tylenol 325 mg Tablet 650 mg PO Q6H PRN (Reason: Pain) RF: 0 Triad Wound Dressing Paste See Rx Instructions .ROUTE .COMPLEX RF: 0 Milk of Magnesia 400 mg/5 mL Suspension 30 ml PO DAILY PRN (Reason: Constipation) RF: 0 Dulcolax (bisacodyl) 10 mg Suppository 10 mg ID DAILY PRN (Reason: Constipation) RF: 0 Fleet Enema 19-7 gram/118 mL Enema 118 ml ID DAILY PRN (Reason: Constipation) RF: 0 Dulcolax (bisacodyl) 5 mg Tablet,Delayed Release (Dr/Ec) 10 mg PO DAILY PRN (Reason: Constipation) RF: 0 Vitamin D3 25 mcg (1,000 unit) Capsule 25 mcg PO DAILY RF: 0 sertraline 100 mg tablet 100 mg PO BEDTIME RF: 0 tamsulosin 0.4 mg capsule 0.4 mg PO BEDTIME RF: 0 atorvastatin 10 mg tablet 10 mg PO BEDTIME RF: 0 latanoprost 0.005 % drops 1 drp ophthalmic (eye) BEDTIME RF: 0 glatiramer [Glatopa] 40 mg/mL syringe See Rx Instructions .ROUTE .COMPLEX RF: 0 Referrals: Parmjit Sanchez MD [Primary Care Provider] - Coding Level of Care Code ED Warehouse Selector for Chg Fwd Exam Comprehensive
[2020-03-13 21:09] LABS: Alanine Aminotransferase 17 U/L (0-41); Alkaline Phosphatase 121 IU/L (40-130); Aspartate Amino Transferase 18 U/L (0-40); Blood Urea Nitrogen 18 mg/dL (8-23); Calcium 8.4 mg/dL (8.5-10.5); Carbon Dioxide 30 mmol/L (22-29); Chloride 103 mmol/L (98-107); Globulin 2.9 g/dL (1.3-4.6); Glucose 132 mg/dL (65-115); Lactic Sepsis W/Reflex 1.6 mmol/L (0.5-2.2); Osmolality Calculated 286 mOsm/kg (285-295); Sodium 139 mmol/L (136-145); Total Bilirubin 0.2 mg/dL (0.15-1.2); Total Protein 5.9 g/dL (6.6-8.7)
[2020-03-13 21:12] LABS: Troponin(5th) Baseline 34 ng/L (0-15)
[2020-03-13] MEDS: acetaminophen 500 mg Tablet 1000 MG PO (21:20)
[2020-03-13] MEDS: ondansetron 2 mg/ML SDV 2 mL 4 MG IVP (21:21)
[2020-03-13 21:22] LABS: Anion Gap 10.5 (5-19); Potassium 4.5 mmol/L (3.5-5.1)
[2020-03-13 21:26] LABS: Urine Color Yellow (Yellow); pH Urine 7 (5-7)
[2020-03-13 21:27] LABS: Bilirubin Urine Neg (NEGATIVE); Blood Urine 3+ (Negative); Glucose Urine UA Norm (Normal); Ketones Urine Negative (Negative); Leukocyte Esterase Urine 2+ (Negative); Nitrate Urine Negative (Negative); Protein Urine 1+ (Negative); Specific Gravity, Urine 1.005 (1.005-1.030); Urobilinogen Urine 1 mg/dL (Negative)
[2020-03-13 21:30] LABS: Add Urine Culture? No; Bacteria Urine 1+; RBC Urine TOO NUMEROUS TO CNT /hpf (0-2); Squamous Epithelial Cell Urine 0-4 (0-5); WBC Urine TOO NUMEROUS TO CNT /hpf (0-5)
--- NOTE | 2020-03-13 21:57 | P.HP_ITS ---
Providers/Chief Complaint Primary Care Provider: Parmjit Sanchez MD Chief Complaint: FEVER History of Present Illness Kristopher Linda is a 75 year old male who carries history of multiple sclerosis, urine retention requiring indwelling Mueller catheter, baseline dementia, resident of [facility], came in today for chief complaint of altered mental status. Patient is not a reliable historian, I called [facility] to get the report. Nurse told me that at baseline he has dementia, he is able to answer in simple words to most of her questions on good days, he uses walker for ambulation but his gait is very unsteady, he eats regular diet, no recent choking on food or aspiration noticed, no recent diarrhea, vomiting. At [facility] today he was more conf used from his baseline, temperature was 102.5, his urine color was cloudy hence sent to the ER for further evaluation. Diagnosis in the ER revealed temperature 103F, blood pressure has been running soft 89-92, he was given ceftriaxone for UTI, chest x-ray has left lower lobe atelectasis versus infiltrate, his Mueller catheter was changed and another urine sample was taken which showed pyuria, because of sepsis and hypotension requiring fluid resuscitation he was transferred to ICU Review of Systems General: Reports: ROS unobtainable due to medical condition Medications/Allergies Home Medications Medication Instructions Recorded Confirmed Last Taken Type atorvastatin 10 mg PO BEDTIME 08/15/19 03/13/20 03/12/20 History memantine 10 mg tablet 10 mg PO BID #180 tab 11/28/19 03/13/20 03/13/20 07:50 Rx glatiramer [Glatopa] See Rx Instructions .ROUTE .COMPLEX 02/18/20 03/13/20 03/13/20 07:50 History latanoprost 1 drp OPHTHALMIC (EYE) BEDTIME 02/18/20 03/13/20 03/12/20 History baclofen 10 mg tablet 10 mg PO TID #270 tab 02/19/20 03/13/20 03/13/20 02:13 Rx acetaminophen [Tylenol] 650 mg PO Q6H PRN 03/13/20 03/13/20 03/01/20 History bisacodyl [Dulcolax (bisacodyl)] 10 mg PO DAILY PRN 03/13/20 03/13/20 Unknown History bisacodyl [Dulcolax (bisacodyl)] 10 mg KS DAILY PRN 03/13/20 03/13/20 Unknown History cholecalciferol (vitamin D3) 25 mcg PO DAILY 03/13/20 03/13/20 03/13/20 07:50 History [Vitamin D3] magnesium hydroxide [Milk of 30 ml PO DAILY PRN 03/13/20 03/13/20 Unknown History Magnesia] sertraline 100 mg PO BEDTIME 03/13/20 03/13/20 03/12/20 History sodium phosphates [Fleet Enema] 118 ml KS DAILY PRN 03/13/20 03/13/20 Unknown History tamsulosin 0.4 mg PO BEDTIME 03/13/20 03/13/20 03/12/20 History wound dressings [Triad Wound See Rx Instructions .ROUTE .COMPLEX 03/13/20 03/13/20 03/13/20 15:02 History Dressing] Allergies Allergy/AdvReac Type Severity Reaction Status Date / Time Penicillins Allergy Unknown Verified 03/13/20 20:49 PFSH Acute PFSH: Medical History Asthma Cancer of sebaceous glands Chalazion Compression fracture t11-t12 Dementia Depression Dysuria Esophageal reflux Gastroesophageal reflux disease Glaucoma History of multiple sclerosis Hypercholesterolemia Hyperlipidemia Impairment of cognitive function Multiple sclerosis Onychodystrophy Peripheral arterial disease Pyoderma Sacroiliitis Urinary retention Viral warts Surgical History No pertinent past surgical history Family History Other CAD (coronary artery disease) Cancer Diabetes Denies family history of Clotting disorder Dementia Hyperlipidemia Psychiatric illness Chronic kidney disease (CKD) Suicide Anesthesia complication Bleeding disorder Family history of premature coronary artery disease Lung disease Hypertension Stroke Social History Smoking and tobacco status: former smoker Alcohol intake: never Housing: Long Term Marital status: Vitals/I&O/Wt Last Vital Signs Temp 103 F H 03/13/20 20:15 Pulse 92 03/13/20 20:52 Resp 18 03/13/20 20:52 BP 124/63 03/13/20 20:52 Pulse Ox 96 03/13/20 20:52 Weight last 48 hrs Weight 52.617 kg Physical Exam Narrative: EXAM NARRATIVE: Patient was laying in left lateral position when I entered the room He was oriented to himself but not place or person Short attention span, able to answer my questions without any slurred speech He was repeating most of his answers Good handgrip, Muscle mass loss of lower extremities, No facial droop noticed Arcus senilis bilaterally S1, S2 sinus bradycardia Clinically looks dehydrated and malnourished Abdomen soft, bowel sound present Bilateral breath sounds without adventitious sounds Only oriented to himself Cognitive impairment No edema gangrene or ulcer of lower extremities Saturating well on room air Urinary Catheter Management^: Mueller: Cath Placed During This Visit: yes Reason for Continuing Indwelling Catheter: Acute Urinary Retention or Obstruction Urinary Catheter Date of Insertion: 03/13/20 Urinary Catheter Time of Insertion: 20:51 Data : 03/13/20 20:35 03/13/20 20:35 Micro: Microbiology 03/13/20 20:37 Blood Culture - Preliminary Blood SPECIMEN COLLECTED 03/13/20 20:35 Blood Culture - Preliminary Blood SPECIMEN COLLECTED A&P Assessment and plan (1) Delirium due to general medical condition: Status: Acute (2) Hospital acquired PNA: Status: Acute (3) Sepsis: Status: Acute (4) UTI (urinary tract infection): Status: Acute (5) History of multiple sclerosis: Status: Acute (6) Compression fracture: Status: Acute (7) Indwelling catheter replaced: Status: Acute (8) Acute delirium: Status: Acute (9) Acute UTI: Status: Acute (10) Sepsis: Status: Acute Qualifiers: Sepsis acute organ dysfunction status: with acute organ dysfunction Sepsis type: sepsis due to unspecified organism Severe sepsis acute organ dysfunction type: encephalopathy Severe sepsis shock status: without septic shock Qualified Code(s): A41.9 - Sepsis, unspecified organism; R65.20 - Severe sepsis without septic shock; G93.40 - Encephalopathy, unspecified Additional A&P Information Acute delirium due to sepsis/UTI Patient is from [facility], considering presence of ESBL, would use Primaxin Concern for hospital-acquired pneumonia left lower lobe infiltrate, I would use cefepime for now Urine antigens requested Able to protect airways, no gross neurological deficit identified, after listening to the nursing report from [facility] this seems to be his baseline cognitive impairment TSH level 02/18/2020 1.6, will check B12 level. Sepsis secondary to UTI Mueller catheter has been replaced in the ER, pyuria noticed, cloudy urine, Continue Primaxin Urine culture to be obtained He might benefit from a voiding trial to see if able to void on his own and discontinue Mueller catheter before discharge Associated with fluids aggressively, currently not needing vasopressors, we will keep him on hold for now Left lower lobe infiltrate He was recently discharged from the hospital I will treat him as hospital- acquired pneumonia with cefepime for pseudomonal coverage along Primaxin, he has mild leukocytosis, no active respiratory distress Blood culture and urine culture obtained Request urine antigen If he stays febrile on this regimen will escalate coverage with vancomycin Compression fracture: No active pain Is very hard to assess his neurological status, I am not sure if myelopathy has a role in unsteady gait and urine retention Patient has been using walker at the facility History of multiple sclerosis: Hold home regimen for now Patient is full code Cardiac diet DVT prophylaxis Lovenox Attestations Medical Necessity Statement*: Anticipating stay in the hospital cross more than 2 midnights currently need IV antibiotics for sepsis secondary to UTI, hospital-acquired pneumonia, acute delirium with underlying dementia Time Spent in Patient Care: (>than 50% of time spent in counselling and/or direct pt care on unit) . 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
--- NOTE | 2020-03-13 22:21 | ECG_ITS ---
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 Measurements Intervals [place] Rate: 83 P: 83 OR: 158 QRS: 18 QRSD: 86 T: 34 QT: 361 QTc: 424 Interpretive Statements SINUS RHYTHM Compared to ECG 02/19/2020 12:37:20 Sinus bradycardia no longer present Electronically Signed On 03-14-2020 20:56:31 CDT by John Leach M.D. [id number]
[2020-03-13] MEDS: cefTRIAXone 1,000 MG in sodium chloride 0.9% (plus) 50 ML 100 MG IV (22:33)
[2020-03-13] MEDS: sodium chloride 0.9% 1,000 ML 100 ML IV (22:33)
[2020-03-13 22:35] VITALS: BP 98/52; PULSE 93; RESP 16; O2SAT 94
[2020-03-13 23:06] LABS: Troponin 5 2HR 34.12 ng/L (0-15); Troponin 5 2HR Delta 0.12 ABS# (0-10)
[2020-03-13 23:30] VITALS: BP 84/38; PULSE 62; RESP 16; TEMP 36.8; O2SAT 94
[2020-03-14] VITALS (91 sets, daily range): BP systolic 75–130; BP diastolic 36–74; PULSE 44–66; RESP 17–33; TEMP 36.6–37.1; O2SAT 74–100
--- NOTE | 2020-03-14 00:10 | PC.NURSE ---
MD aware of BP- fluids opened up and will reevaluate. Pt with no complaints
--- NOTE | 2020-03-14 01:05 | PC.NURSE ---
Admit Note Arrived to unit alert, with flat affect. Some delay in verbal response, otherwise speech is clear. Oriented to person and place. Pupils sluggish PERRL. Able to follow all commands and move all extremities. Arrived to unit with levophed infusing at 4mcg/min. Pt denies pain. Breathing even and non-labored on 2L NC. Lungs clear bilateral upper lobes and diminished bilateral lower lobes. Medial sacrum has blanchable redness with prior loss of skin integrity. Few small scabbed flaking areas to sacrum.
[2020-03-14] MEDS: cefepime 1,000 MG in sodium chloride 0.9% (plus) 50 ML 100 MG IV ×2 (02:03→15:05)
[2020-03-14] MEDS: enoxaparin 40 mg/0.4 mL Syringe SUBCUT (02:04)
[2020-03-14] MEDS: latanoprost 0.005% Op Soln 2.5 mL Btl 1 DROP EYE-BOTH ×2 (02:04→21:38)
[2020-03-14 02:25] LABS: Vitamin B12 297 pg/mL (232-1245)
--- NOTE | 2020-03-14 02:30 | PC.NURSE ---
Hemodynamics Cheetah sensors placed on patient. Established baseline readings: SVI 46 CI 2.6 TPR 1086 TPRI 1893 PLR method use, SVI change of 24.4%. Pt tolerated well.
[2020-03-14] MEDS: sodium chloride 0.9% 1,000 ML 999 ML IV (03:28)
[2020-03-14 03:51] LABS: Basophils % 0.2 %; Eosinophils % 0.1 %; Hematocrit 32.7 % (42.0-52.0); Lymphocytes % 5.7 %; Mean Corpuscular HGB Conc 30.6 g/dL (30.0-36.0); Mean Corpuscular Hemoglobin 30.6 pg (28.0-34.0); Mean Platelet Volume 10.6 fL (7.4-10.4); Monocytes # 1.9 10^3/uL (0.2-0.9); Monocytes % 10.6 %; Neutrophils # 14.82 10^3/uL (1.8-7.7); Nucleated Red Blood Cells % 0 %; Platelet Count 168 10^3/cmm (130-400); Red Blood Count 3.27 10^6/uL (4.1-5.3); White Blood Count 17.9 10^3/uL (4.0-10.0)
--- NOTE | 2020-03-14 04:08 | PC.NURSE ---
Bradycardia Dr. Keen notified by voalt of bradycardia. On admit rosemarie with rate in low 50's. Now sustaining 46-48 HR. Bolus is still infusing at this time and levophed on 10mcg. Orders were placed by physician to start Dopamine gtt.
[2020-03-14 04:20] LABS: Blood Urea Nitrogen 18 mg/dL (8-23); Calcium 7.4 mg/dL (8.5-10.5); Carbon Dioxide 29 mmol/L (22-29); Chloride 108 mmol/L (98-107); Glucose 182 mg/dL (65-115); Osmolality Calculated 297 mOsm/kg (285-295); Sodium 143 mmol/L (136-145)
[2020-03-14] MEDS: DOPamine drip 400 MG/250 ML PREMIX 9.9 MG IV (04:24)
[2020-03-14] MEDS: sodium chloride 0.9% 1,000 ML 75 ML IV (04:36)
--- NOTE | 2020-03-14 04:53 | PC.NURSE ---
Atrial fib after Dopamine administration pt HR in and out of atrial fib. Dr. Keen notified via phone and received orders to stop dopamine. EKG history of 2 months ago showed bradycardia per Dr. Keen.
--- NOTE | 2020-03-14 07:45 | CTR_ITS ---
PROCEDURE INFORMATION: Exam: CT Chest Without Contrast Exam date and time: 03/14/2020 8:03 AM Age: 75 years old Clinical indication: Other: UTI vs pne; Additional info: AMS, UTI vs pna TECHNIQUE: Imaging protocol: Computed tomography of the chest without contrast. Radiation optimization: All CT scans at this facility use at least one of these dose optimization techniques: automated exposure control; mA and/or kV adjustment per patient size (includes targeted exams where dose is matched to clinical indication); or iterative reconstruction. COMPARISON: No relevant prior studies available. RADIATION DOSE METRICS: Total DLP (mGy-cm): 1034.36 FINDINGS: Lungs: Emphysematous change, interstitial disease, and dependent airspace disease. Pleural space: Small pleural effusions, left greater than right. Heart: Coronary artery calcification. Mediastinal space: Large hiatal hernia. Aorta: Ectasia of the thoracic aorta. Lymph nodes: No pathologically enlarged lymph nodes. Bones/joints: Acute T12 compression fracture with 6 mm retropulsion. Osteopenia, chronic T6 compression fracture, and degenerative change. Soft tissues: Subcutaneous edema. IMPRESSION: 1. Small pleural effusions, left greater than right. 2. Emphysematous change, interstitial disease, and dependent airspace disease. 3. Acute T12 compression fracture with 6 mm retropulsion. 4. Additional findings as described above. PROCEDURE INFORMATION: Exam: CT Abdomen And Pelvis Without Contrast Exam date and time: 03/14/2020 8:03 AM Age: 75 years old Clinical indication: Other: UTI vs pne; Additional info: AMS, UTI vs pna TECHNIQUE: Imaging protocol: Computed tomography of the abdomen and pelvis without contrast. Radiation optimization: All CT scans at this facility use at least one of these dose optimization techniques: automated exposure control; mA and/or kV adjustment per patient size (includes targeted exams where dose is matched to clinical indication); or iterative reconstruction. COMPARISON: No relevant prior studies available. RADIATION DOSE METRICS: Total DLP (mGy-cm): 1034.36 FINDINGS: Detailed evaluation of the abdominal and pelvic viscera is somewhat limited in the absence of intravenous contrast. Liver: No focal hepatic mass. Gallbladder and bile ducts: Contracted gallbladder. No biliary ductal dilatation. Pancreas: No pancreatic mass or ductal dilatation. Spleen: No splenomegaly. Adrenals: Unremarkable adrenals. Kidneys and ureters: Multiple renal cysts, including a 4.0 cm cyst in the posterior left kidney. Stomach and bowel: Combined small bowel and colonic dilatation without a focal transition zone. Prominent stool, in a pattern of constipation. Diverticula, without pericolonic inflammation. Appendix: Nonvisualization of the appendix. Intraperitoneal space: Unremarka no significant free fluid. Vasculature: Vascular calcification. Normal caliber of the abdominal aorta. Lymph nodes: No pathologically enlarged lymph nodes. Bladder: Mueller catheter, wall thickening, and intraluminal air in the decompressed bladder. Reproductive: Unremarkable as visualized. Bones/joints: Osteopenia. Degenerative change and disc bulging. Soft tissues: Subcutaneous edema and emphysema. CT/CT chest abd pel wo con IMPRESSION: 1. Combined small bowel and colonic dilatation without a focal transition zone. Prominent stool, in a pattern of constipation. 2. Additional findings as described above. Radiation Dose CTDIVOL = (mGy): DLP = 1034.36~1034.36 (mGy-cm)
[2020-03-14 08:15] LABS: Procalcitonin 0.28 ng/mL (0-0.5)
[2020-03-14 08:25] LABS: C Reactive Protein 17.9 mg/L (0.0-4.9)
[2020-03-14 09:01] LABS: Cortisol Random 16.88 ug/mL (2.47-19.5)
[2020-03-14] MEDS: lactated ringers 500 ML 999 ML IV ×3 (09:28→15:49)
[2020-03-14] MEDS: memantine 5 mg tablet 10 MG PO ×2 (09:32→17:30)
[2020-03-14] MEDS: baclofen 10 mg Tablet PO ×3 (09:33→21:28)
--- NOTE | 2020-03-14 12:33 | P.PN_ITS ---
Vitals/I&O/Wt Last Vital Signs Temp 98.1 F 03/14/20 03:30 Pulse 54 L 03/14/20 12:00 Resp 24 H 03/14/20 12:00 BP 76/58 03/14/20 12:00 Pulse Ox 100 03/14/20 11:15 03/13/20 03/14/20 03/14/20 22:59 06:59 14:59 Intake Total 1499.192 / 1499.192 200 / 200 Output Total 250 / 250 Balance 1249.192 / 1249.192 200 / 200 Weight last 48 hrs Weight 56.699 kg Weight 52.617 kg Physical Exam Const: COMMON NORMALS: no acute distress and alert GENERAL APPEARANCE: cooperative and ill appearing ORIENTATION/CONSCIOUSNESS: Yes awake, Yes oriented to person and Yes confused; not oriented to place and not oriented to time HENMT: COMMON NORMALS: normocephalic HEAD & SCALP: normocephalic Neck/C-Spine: COMMON NORMALS: no JVD Resp: COMMON NORMALS: normal respiratory effort, No retractions, No use of accessory muscles and clear to auscultation bilaterally AUSCULTATION: clear to auscultation bilaterally Cardio: COMMON NORMALS: no JVD, regular rate, regular rhythm, S1 normal heart sound present and S2 normal heart sound present RATE: regular rate RHYTHM: regular rhythm HEART SOUNDS: S1 normal heart sound present and S2 normal heart sound present GI: COMMON NORMALS: Normal to inspection, nondistended, normoactive bowel sounds present, Soft to palpation, non-tender, No hepatosplenomegaly present, no masses and no bruits PALPATION: Yes Soft to palpation and Yes No hepatosplenomegaly present Extremity: COMMON NORMALS: capillary refill normal, no clubbing, cyanosis or edema, no calf tenderness and no pedal edema Neuro: SENSORIUM/ORIENTATION: Yes alert, Yes oriented to person, No oriented to place and No oriented to time Psych: COMMON NORMALS: mental status grossly normal Urinary Catheter Management^: Mueller: Cath Placed During This Visit: yes Reason for Continuing Indwelling Catheter: Accurate Measurement of Urinary Output in Critically Ill Patients Urinary Catheter Date of Insertion: 03/13/20 Urinary Catheter Time of Insertion: 20:51 Sepsis: Is patient septic: Yes Focused sepsis exam performed: Yes Date exam was performed: 03/14/20 Time exam was performed: 08:00 Data : 03/14/20 03:08 03/14/20 03:08 Micro: Microbiology 03/14/20 01:55 Bacterial Antigens - Final Urine Kidney 03/14/20 01:55 Legionella Urinary Antigen - Final Urine Catheterized 03/13/20 20:37 Blood Culture - Preliminary Blood SPECIMEN COLLECTED 03/13/20 20:35 Blood Culture - Preliminary Blood SPECIMEN COLLECTED A&P Assessment and plan (1) Sepsis: -Septic encephalopathy, sepsis, secondary to HCAP, UTI -Alert oriented x2, answers some questions appropriate, 2 L nasal cannula,- having hypotensive episodes overnight requiring Levophed, on 2 L nasal cannula Plan: -Admit to intensive care unit -Continue broad-spectrum antibiotics vancomycin, Primaxin and cefepime -Currently on Levophed drip, weaned off, LR boluses as needed, is fluid responsive -Lovenox for DVT prophylaxis -Protonix for GI prophylaxis -Follow blood cultures, urine cultures, sputum cultures, urine bacterial antigens -We will do CT of the chest, abdomen pelvis -Monitor clinical status closely -Full code Status: Acute (2) Acute delirium: Status: Acute (3) Delirium due to general medical condition: Status: Acute (4) Hospital acquired PNA: Status: Acute (5) UTI (urinary tract infection): Status: Acute (6) History of multiple sclerosis: Status: Acute (7) Compression fracture: Status: Acute (8) Indwelling catheter replaced: Status: Acute (9) Acute UTI: Status: Acute (10) Sepsis: Status: Acute Qualifiers: Sepsis acute organ dysfunction status: with acute organ dysfunction Sepsis type: sepsis due to unspecified organism Severe sepsis acute organ dysfunction type: encephalopathy Severe sepsis shock status: without septic shock Qualified Code(s): A41.9 - Sepsis, unspecified organism; R65.20 - Severe sepsis without septic shock; G93.40 - Encephalopathy, unspecified Attestations Medical Necessity Statement*: Patient requires hospitalization, inpatient, for septic encephalopathy secondary to UTI, pneumonia, concerns for healthcare associate pneumonia, sepsis, septic shock Coding Level of Care Code Acute [employer] [facility] for [facility] Diagnoses Sepsis A41.9 Acute delirium R41.0 Delirium due to general medical condition F05 Hospital acquired PNA J18.9; Y95 UTI (urinary tract infection) N39.0 History of multiple sclerosis Z86.69 Compression fracture Indwelling catheter replaced Z46.6 Acute UTI N39.0 Sepsis A41.9; R65.20; G93.40 Sepsis acute organ dysfunction status: with acute organ dysfunction Sepsis type: sepsis due to unspecified organism Severe sepsis acute organ dysfunction type: encephalopathy Severe sepsis shock status: without septic shock Sepsis Event Note Evaluation Current stage of sepsis: sepsis Possible source: pulmonary and genitourinary Focused Exam Vital signs: Vital Signs Temp Pulse Resp BP Pulse Ox 03/14/20 12:00 54 L 24 H 76/58 03/14/20 11:45 49 L 19 H 94/60 03/14/20 11:30 50 L 25 H 103/61 03/14/20 11:15 50 L 27 H 99/60 100 03/14/20 11:00 52 L 20 H 98/61 87 L 03/14/20 10:45 44 L 27 H 102/58 100 03/14/20 10:30 46 L 19 H 96/59 100 03/14/20 10:15 49 L 21 H 110/63 100 03/14/20 10:00 47 L 22 H 112/62 100 03/14/20 09:45 53 L 28 H 86/67 100 03/14/20 09:30 49 L 23 H 119/63 100 03/14/20 09:15 47 L 21 H 96/55 100 03/14/20 09:00 48 L 19 H 112/62 100 03/14/20 08:45 49 L 23 H 112/65 100 03/14/20 08:00 54 L 21 H 101/57 98 03/14/20 07:45 50 L 20 H 119/60 100 03/14/20 07:30 49 L 19 H 114/57 100 03/14/20 07:00 57 L 18 121/60 98 03/14/20 06:45 53 L 28 H 130/64 99 03/14/20 06:30 50 L 21 H 117/60 100 03/14/20 06:15 51 L 22 H 111/53 99 03/14/20 06:00 52 L 21 H 84/60 100 03/14/20 05:45 51 L 17 95/51 100 03/14/20 05:30 55 L 18 101/56 98 03/14/20 05:15 49 L 20 H 90/50 100 03/14/20 05:00 53 L 20 H 97/53 100 03/14/20 04:45 57 L 21 H 109/58 98 03/14/20 04:30 61 26 H 106/62 100 03/14/20 04:15 48 L 24 H 114/60 100 03/14/20 04:00 58 L 21 H 102/55 100 03/14/20 03:45 50 L 19 H 86/45 100 03/14/20 03:30 98.1 F 58 L 31 H 93/51 100 03/14/20 03:15 62 25 H 115/59 99 03/14/20 03:00 63 23 H 94/53 100 03/14/20 02:45 55 L 20 H 87/49 99 03/14/20 02:30 56 L 22 H 90/51 100 03/14/20 02:15 55 L 22 H 99/50 100 03/14/20 02:00 51 L 19 H 80/46 100 03/14/20 01:45 55 L 22 H 90/54 100 03/14/20 01:30 97.9 F 56 L 25 H 97/60 99 03/14/20 01:15 60 29 H 84/56 03/14/20 01:10 61 24 H Respiratory exam: Present accessory muscle use Cardiovascular exam: tachycardia Peripheral pulse strength: 1+ Faint Skin exam: normal turgor Date exam was performed: 03/14/20 Time exam was performed: 12:40 Problem List (1) Delirium due to general medical condition: Status: Acute (2) Hospital acquired PNA: Status: Acute (3) Sepsis: Status: Acute (4) UTI (urinary tract infection): Status: Acute (5) History of multiple sclerosis: Status: Acute (6) Compression fracture: Status: Acute Comment: t11-t12 (7) Indwelling catheter replaced: Status: Acute (8) Acute delirium: Status: Acute (9) Acute UTI: Status: Acute (10) Sepsis: Status: Acute Sepsis Event Note Evaluation Current stage of sepsis: sepsis Possible source: pulmonary and genitourinary Focused Exam Vital Signs Temp Pulse Resp BP Pulse Ox 03/14/20 12:00 54 L 24 H 76/58 03/14/20 11:45 49 L 19 H 94/60 03/14/20 11:30 50 L 25 H 103/61 03/14/20 11:15 50 L 27 H 99/60 100 03/14/20 11:00 52 L 20 H 98/61 87 L 03/14/20 10:45 44 L 27 H 102/58 100 03/14/20 10:30 46 L 19 H 96/59 100 03/14/20 10:15 49 L 21 H 110/63 100 03/14/20 10:00 47 L 22 H 112/62 100 03/14/20 09:45 53 L 28 H 86/67 100 03/14/20 09:30 49 L 23 H 119/63 100 03/14/20 09:15 47 L 21 H 96/55 100 03/14/20 09:00 48 L 19 H 112/62 100 03/14/20 08:45 49 L 23 H 112/65 100 03/14/20 08:00 54 L 21 H 101/57 98 03/14/20 07:45 50 L 20 H 119/60 100 03/14/20 07:30 49 L 19 H 114/57 100 03/14/20 07:00 57 L 18 121/60 98 03/14/20 06:45 53 L 28 H 130/64 99 03/14/20 06:30 50 L 21 H 117/60 100 03/14/20 06:15 51 L 22 H 111/53 99 03/14/20 06:00 52 L 21 H 84/60 100 03/14/20 05:45 51 L 17 95/51 100 03/14/20 05:30 55 L 18 101/56 98 03/14/20 05:15 49 L 20 H 90/50 100 03/14/20 05:00 53 L 20 H 97/53 100 03/14/20 04:45 57 L 21 H 109/58 98 03/14/20 04:30 61 26 H 106/62 100 03/14/20 04:15 48 L 24 H 114/60 100 03/14/20 04:00 58 L 21 H 102/55 100 03/14/20 03:45 50 L 19 H 86/45 100 03/14/20 03:30 98.1 F 58 L 31 H 93/51 100 03/14/20 03:15 62 25 H 115/59 99 03/14/20 03:00 63 23 H 94/53 100 03/14/20 02:45 55 L 20 H 87/49 99 03/14/20 02:30 56 L 22 H 90/51 100 03/14/20 02:15 55 L 22 H 99/50 100 03/14/20 02:00 51 L 19 H 80/46 100 03/14/20 01:45 55 L 22 H 90/54 100 03/14/20 01:30 97.9 F 56 L 25 H 97/60 99 03/14/20 01:15 60 29 H 84/56 03/14/20 01:10 61 24 H Respiratory exam: Present accessory muscle use Cardiovascular exam: Present tachycardia Peripheral pulse strength: 1+ Faint Skin exam: normal turgor Date exam was performed: 03/14/20 Time exam was performed: 12:40 Problem List (1) Delirium due to general medical condition: Status: Acute (2) Hospital acquired PNA: Status: Acute (3) Sepsis: Status: Acute (4) UTI (urinary tract infection): Status: Acute (5) History of multiple sclerosis: Status: Acute (6) Compression fracture: Status: Acute Comment: t11-t12 (7) Indwelling catheter replaced: Status: Acute (8) Acute delirium: Status: Acute (9) Acute UTI: Status: Acute (10) Sepsis: Status: Acute
[2020-03-14] MEDS: pantoprazole 40 mg SDV IVP (13:40)
[2020-03-14] MEDS: vancomycin 1,000 MG in sodium chloride 0.9% 250 ML 250 MG IV (15:50)
[2020-03-14] MEDS: atorvastatin 40 mg Tablet 20 MG PO (21:26)
[2020-03-14] MEDS: tamsulosin 0.4 mg Capsule PO (21:26)
[2020-03-14] MEDS: sertraline 100 mg Tablet PO (21:26)
[2020-03-15] VITALS (42 sets, daily range): BP systolic 75–122; BP diastolic 43–82; PULSE 55–153; RESP 17–30; TEMP 36.4–37.6; O2SAT 93–100
[2020-03-15] MEDS: cefepime 1,000 MG in sodium chloride 0.9% (plus) 50 ML 100 MG IV ×2 (01:28→14:27)
[2020-03-15] MEDS: enoxaparin 40 mg/0.4 mL Syringe SUBCUT (01:32)
--- NOTE | 2020-03-15 03:41 | PC.NURSE ---
Patient's HR 120-150's, in et out of a-fib. Blood pressure is with in normal limits. Increasing blood pressure monitoring to q 15mins. Attempted to contact the on-call physician but was unable to reach him. Will attempt to call back in 15 mins.
[2020-03-15 04:18] LABS: Basophils % 0.4 %; Eosinophils # 0.1 10^3/uL (0.0-0.8); Eosinophils % 0.9 %; Hemoglobin 10.6 g/dL (11.7-16.6); Lymphocytes # 1.1 10^3/uL (0.8-4.8); Lymphocytes % 9.8 %; Mean Corpuscular HGB Conc 30.3 g/dL (30.0-36.0); Mean Corpuscular Hemoglobin 30.5 pg (28.0-34.0); Mean Corpuscular Volume 100.9 fL (80-94); Mean Platelet Volume 10.4 fL (7.4-10.4); Monocytes # 1.1 10^3/uL (0.2-0.9); Monocytes % 9.8 %; Neutrophils # 8.64 10^3/uL (1.8-7.7); Neutrophils % 78.6 %; Nucleated Red Blood Cells % 0 %; Platelet Count 153 10^3/cmm (130-400); Red Blood Count 3.47 10^6/uL (4.1-5.3); Red Cell Distribution Width 13.2 % (12.1-15.1)
[2020-03-15 04:37] LABS: Lactic Sepsis W/Reflex 0.9 mmol/L (0.5-2.2)
[2020-03-15 04:44] LABS: Alanine Aminotransferase 28 U/L (0-41); Albumin Level 2.6 g/dL (3.5-5.2); Alkaline Phosphatase 84 IU/L (40-130); Anion Gap 8.3 (5-19); Aspartate Amino Transferase 26 U/L (0-40); Blood Urea Nitrogen 15 mg/dL (8-23); C Reactive Protein 50.1 mg/L (0.0-4.9); Calcium 7.5 mg/dL (8.5-10.5); Carbon Dioxide 27 mmol/L (22-29); Chloride 109 mmol/L (98-107); Creatinine Clr Calc Pharmacy 63.9832; Globulin 2.3 g/dL (1.3-4.6); Glucose 81 mg/dL (65-115); Osmolality Calculated 285 mOsm/kg (285-295); Potassium 4.3 mmol/L (3.5-5.1); Sodium 140 mmol/L (136-145); Total Bilirubin 0.2 mg/dL (0.15-1.2); Total Protein 4.9 g/dL (6.6-8.7)
[2020-03-15 04:55] LABS: Procalcitonin 0.24 ng/mL (0-0.5)
--- NOTE | 2020-03-15 05:15 | PC.NURSE ---
Cardizem gtt started. Titrate for HR <100 bpm. See MAR et vital sign flowsheet for details.
[2020-03-15 06:08] LABS: Glucose Point of Care 89 mg/dL (70-110)
[2020-03-15] MEDS: memantine 5 mg tablet 10 MG PO ×2 (08:23→18:19)
[2020-03-15] MEDS: apixaban 5 mg Tablet PO ×2 (08:23→18:19)
[2020-03-15] MEDS: digoxin 250 mcg/ml INJ 2 mL 500 MCG IVP (08:23)
[2020-03-15] MEDS: pantoprazole 40 mg SDV IVP (08:23)
[2020-03-15] MEDS: baclofen 10 mg Tablet PO ×3 (08:24→20:27)
[2020-03-15] MEDS: vancomycin 1,000 MG in sodium chloride 0.9% 250 ML 250 MG IV (08:26)
[2020-03-15] MEDS: sodium chloride 0.9% 1,000 ML 75 ML IV ×3 (08:28→20:02)
--- NOTE | 2020-03-15 11:25 | PM.PN ---
Subjective Subjective: Interval history: This morning patient was examined, has been afebrile overnight, has been off Levophed for the last 12 hours, has had atrial fibrillation overnight, currently on a Cardizem drip, still in A. fib with heart rates in the 120s to 150s, urine cultures growing gram-negative rods. Patient was examined this morning, he is eating breakfast, smiling, has no complaints, no fevers, chills, no nausea, no vomiting, no lightheadedness, no dizziness, no agitation episodes overnight, has a history of dementia, baseline mental status is unknown, in terms of his mentation he has had no significant change in the last 24 hours Vitals/I&O/Wt Last Vital Signs Temp 97.9 F 03/15/20 07:45 Pulse 123 H 03/15/20 10:00 Resp 22 H 03/15/20 10:00 BP 81/43 03/15/20 10:00 Pulse Ox 97 03/15/20 10:00 03/14/20 03/15/20 03/15/20 22:59 06:59 14:59 Intake Total 2032.16 / 2606.728 2009.75 / 4616.478 600 / 600 Output Total 1300 / 1300 2250 / 3550 Balance 732.16 / 1306.728 -240.25 / 1066.478 600 / 600 Weight last 48 hrs Weight 59.375 kg Weight 56.699 kg Weight 52.617 kg Physical Exam Const: COMMON NORMALS: no acute distress and alert GENERAL APPEARANCE: cooperative ORIENTATION/CONSCIOUSNESS: Yes awake, Yes oriented to person and Yes confused; not oriented to place and not oriented to time HENMT: COMMON NORMALS: normocephalic HEAD & SCALP: normocephalic Neck/C-Spine: COMMON NORMALS: no JVD Resp: COMMON NORMALS: normal respiratory effort, No retractions, No use of accessory muscles and clear to auscultation bilaterally AUSCULTATION: clear to auscultation bilaterally Cardio: COMMON NORMALS: no JVD, S1 normal heart sound present and S2 normal heart sound present RATE: tachycardic RHYTHM: abnormal rhythm HEART SOUNDS: S1 normal heart sound present and S2 normal heart sound present GI: COMMON NORMALS: Normal to inspection, nondistended, normoactive bowel sounds present, Soft to palpation, non-tender, No hepatosplenomegaly present, no masses and no bruits PALPATION: Yes Soft to palpation and Yes No hepatosplenomegaly present Extremity: COMMON NORMALS: capillary refill normal, no clubbing, cyanosis or edema, no calf tenderness and no pedal edema Neuro: SENSORIUM/ORIENTATION: Yes alert, Yes oriented to person, No oriented to place and No oriented to time Urinary Catheter Management^: Mueller: Cath Placed During This Visit: yes Reason for Continuing Indwelling Catheter: Chronic Indwelling Urinary Catheter on Admission Urinary Catheter Date of Insertion: 03/13/20 Urinary Catheter Time of Insertion: 20:51 Data : 03/15/20 03:42 03/15/20 03:42 Micro: Microbiology 03/13/20 20:57 Urine Culture - Preliminary Urine Catheterized Gram Negative Rods 03/13/20 20:37 Blood Culture - Preliminary Blood NEGATIVE TO DATE 03/13/20 20:35 Blood Culture - Preliminary Blood NEGATIVE TO DATE A&P Assessment and plan (1) Sepsis: -Septic encephalopathy, sepsis, secondary to HCAP, UTI -Alert oriented x1, answers some questions appropriate, 2 L nasal cannula -No hypotensive episodes overnight, off Levophed -Urine cultures growing gram-negative rods -CT chest small pleural effusions left greater than right, T12 compression fracture with 6 mm retropulsion, small bowel and colonic dilatation without focal transition zone, multiple renal cysts, no obstructive uropathy Plan: -Admit to intensive care unit -Continue broad-spectrum antibiotics vancomycin, Primaxin and cefepime -Fluid responsive, Levophed drip off, fluid boluses as needed -Lovenox for DVT prophylaxis -Protonix for GI prophylaxis -Follow blood cultures, urine cultures, sputum cultures, urine bacterial antigens -Monitor clinical status closely -Full code Status: Acute (2) Atrial fibrillation: -Likely secondary to sepsis, UTI, pneumonia -Currently on a Cardizem drip, will give digoxin loading dose 500 mcg -We will order cardiac echocardiogram -Hold off on anticoagulation, will see if patient converts to normal sinus rhythm Status: Acute (3) Acute delirium: Status: Acute (4) Delirium due to general medical condition: Status: Acute (5) Hospital acquired PNA: Status: Acute (6) UTI (urinary tract infection): Status: Acute (7) History of multiple sclerosis: Status: Acute (8) Compression fracture: Status: Acute (9) Indwelling catheter replaced: Status: Acute (10) Acute UTI: Status: Acute Additional A&P Information Compression fracture: No active pain Is very hard to assess his neurological status, I am not sure if myelopathy has a role in unsteady gait and urine retention Patient has been using walker at the facility History of multiple sclerosis: Hold home regimen for now Patient is full code Cardiac diet DVT prophylaxis Lovenox Attestations Medical Necessity Statement*: Patient requires hospitalization, ICU, for sepsis secondary to UTI pneumonia, stress-induced atrial fibrillation Coding Level of Care Code Acute [facility] for [facility] Diagnoses Sepsis A41.9 Atrial fibrillation I48.91 Acute delirium R41.0 Delirium due to general medical condition F05 Hospital acquired PNA J18.9; Y95 UTI (urinary tract infection) N39.0 History of multiple sclerosis Z86.69 Compression fracture Indwelling catheter replaced Z46.6 Acute UTI N39.0
[2020-03-15] MEDS: lactated ringers 500 ML 999 ML IV (14:25)
[2020-03-15] MEDS: amiodarone 200 mg Tablet 400 MG PO (14:28)
--- NOTE | 2020-03-15 14:39 | PC.NURSE ---
Pt converted to sinus rhythm. Rate of 60. Cardizem off for less than 5 minutes.
--- NOTE | 2020-03-15 18:30 | PC.NURSE ---
Shift summary: Pt pleasantly befuddled. He is cooperative. He eats every bit of every meal. He was in a-fib this am, converted to sinus rhythm 1440.. He has had some episodes of bradycardia this am while on cardizem gtt, then it was reduced to 5mg/hr, it was stopped at 1440. He has had some episodes of hypotension, he seemed to be sensitive to Cardizem B/P resendiz. He received a 500ml LR bolus this afternoon. B/P WNL afterwards. He has been afebrile. He remains on 2lpm/NC, sats greater than 94%. Lung sounds clear. Urine clear and pale yellow, 1700 ml output.
--- NOTE | 2020-03-15 19:00 | PC.NURSE ---
Report received, care assumed. Monitor alarms, plan of care et previous orders reviewed. See physical assessment et vital sign flowsheets for details.
[2020-03-15] MEDS: atorvastatin 40 mg Tablet 20 MG PO (20:27)
[2020-03-15] MEDS: tamsulosin 0.4 mg Capsule PO (20:27)
[2020-03-15] MEDS: sertraline 100 mg Tablet PO (20:27)
[2020-03-15] MEDS: latanoprost 0.005% Op Soln 2.5 mL Btl 1 DROP EYE-BOTH (20:32)
[2020-03-16] VITALS (15 sets, daily range): BP systolic 87–133; BP diastolic 56–72; PULSE 59–77; RESP 10–28; TEMP 36.5–37.3; O2SAT 91–99
[2020-03-16 01:58] LABS: Vancomycin Trough 9.1 ug/mL (10-15)
[2020-03-16] MEDS: vancomycin 1,000 MG in sodium chloride 0.9% 250 ML 250 MG IV ×2 (02:25→20:33)
[2020-03-16 03:29] LABS: Basophils % 0.3 %; Eosinophils # 0.1 10^3/uL (0.0-0.8); Eosinophils % 1.1 %; Hematocrit 31.6 % (42.0-52.0); Hemoglobin 9.6 g/dL (11.7-16.6); Lymphocytes # 0.8 10^3/uL (0.8-4.8); Lymphocytes % 8.4 %; Mean Corpuscular HGB Conc 30.4 g/dL (30.0-36.0); Mean Corpuscular Hemoglobin 30.3 pg (28.0-34.0); Mean Corpuscular Volume 99.7 fL (80-94); Mean Platelet Volume 10.2 fL (7.4-10.4); Monocytes # 0.9 10^3/uL (0.2-0.9); Monocytes % 9.1 %; Neutrophils % 80.5 %; Nucleated Red Blood Cells % 0 %; Platelet Count 152 10^3/cmm (130-400); Red Blood Count 3.17 10^6/uL (4.1-5.3); Red Cell Distribution Width 12.8 % (12.1-15.1)
[2020-03-16 03:53] LABS: Alanine Aminotransferase 20 U/L (0-41); Albumin Level 2.5 g/dL (3.5-5.2); Alkaline Phosphatase 84 IU/L (40-130); Anion Gap 11.6 (5-19); Aspartate Amino Transferase 16 U/L (0-40); Blood Urea Nitrogen 12 mg/dL (8-23); Carbon Dioxide 26 mmol/L (22-29); Chloride 107 mmol/L (98-107); Globulin 2.4 g/dL (1.3-4.6); Glucose 98 mg/dL (65-115); Osmolality Calculated 286 mOsm/kg (285-295); Phosphorus 3.4 mg/dL (2.5-4.5); Potassium 4.6 mmol/L (3.5-5.1); Sodium 140 mmol/L (136-145); Total Bilirubin 0.3 mg/dL (0.15-1.2); Total Protein 4.9 g/dL (6.6-8.7)
[2020-03-16 03:54] LABS: Lactic Sepsis W/Reflex 1.1 mmol/L (0.5-2.2)
[2020-03-16 04:15] LABS: C Reactive Protein 34.8 mg/L (0.0-4.9)
[2020-03-16 04:24] LABS: Procalcitonin 0.19 ng/mL (0-0.5)
--- NOTE | 2020-03-16 08:21 | USCV_ITS ---
Kristopher Linda Age: 75 Gender: M : 1945 Exam Date: 03/16/2020 12:38 Ordering Phys: Rima Lr MD Technologist: Marquita Dillard Exam Location: [facility] [place] Indication: afib, hypotension BP: 110 / 68 HR: 60 Rhythm: Sinus Technical Quality: Good MEASUREMENTS (Male / Female) Normal Values 2D ECHO LV Diastolic Diameter PLAX 4.7 cm 4.2 - 5.9 / 3.9 - 5.3 cm LV Systolic Diameter PLAX 2.5 cm IVS Diastolic Thickness 1.0 cm 0.6 - 1.0 / 0.6 - 0.9 cm IVS Systolic Thickness 1.4 cm LVPW Diastolic Thickness 1.0 cm 0.6 - 1.0 / 0.6 - 0.9 cm LVPW Systolic Thickness 1.7 cm LV Ejection Fraction 2D Teich 77.8 % LV Ejection Fraction MOD 2C 91.3 % LV Ejection Fraction 2C AL 93.6 % LA Diameter 5.1 cm LA Width 4.3 cm LA Height 6.2 cm RA Width 4.7 cm RA Height 4.3 cm M-MODE LV Diastolic Diameter MM 5.8 cm 4.2 - 5.9 / 3.9 - 5.3 cm LV Systolic Diameter MM 3.8 cm LV Ejection Fraction MM Teich 62.5 % IVS Diastolic Thickness MM 0.6 cm 0.6 - 1.0 / 0.6 - 0.9 cm IVS Systolic Thickness MM 1.4 cm LVPW Diastolic Thickness MM 0.7 cm 0.6 - 1.0 / 0.6 - 0.9 cm LVPW Systolic Thickness MM 1.4 cm Aortic Annulus Diameter 3.2 cm LA Ao Ratio MM 1.6 MV E Point Septal Separation 0.7 cm DOPPLER AV Peak Velocity 214.0 cm/s LVOT Peak Velocity 176.0 cm/s MV Peak Velocity 129.0 cm/s MV Area PHT 3.1 cm squared Mitral E to A Ratio 1.3 MV E' Velocity 7.0 cm/s Mitral E to MV E' Ratio 12.3 Mitral E to LV E' Lateral Ratio 14.6 Mitral E to LV E' Septal Ratio 10.7 TR Peak Velocity 334.0 cm/s TR Peak Gradient 44.7 mmHg Right Atrial Pressure 8.0 mmHg Pulmonary Artery Systolic Pressu 52.6 mmHg PV Peak Velocity 101.0 cm/s RV Acceleration Time 0.1 s FINDINGS Left Ventricle Normal left ventricular size, systolic function and wall thickness, with no regional wall motion abnormalities. Left ventricular ejection fraction is estimated at 65-70 %. Normal diastolic function. Right Ventricle Normal right ventricular size and systolic function. Right ventricular systolic pressure 52.6 mmHg. Right Atrium Normal right atrial size. Right atrial pressure estimated at 8 mm Hg. Left Atrium Mildly increased left atrial size. Mitral Valve Moderately thickened mitral valve. No mitral valve stenosis. Mild to moderate mitral valve regurgitation. Aortic Valve Midly thickened and trileaflet aortic valve. No aortic valve stenosis. Moderate aortic valve regurgitation. Tricuspid Valve Structurally normal tricuspid valve. No tricuspid valve stenosis. Mild tricuspid valve regurgitation. Pulmonic Valve Structurally normal pulmonic valve. No pulmonary valve stenosis. Mild pulmonary valve regurgitation. Pericardium No pericardial effusion. Mildly dilated inferior vena cava. Aorta Normal size aortic root and proximal ascending aorta. CONCLUSIONS 1. Normal left ventricular size, systolic function and wall thickness, with no regional wall motion abnormalities. Left ventricular ejection fraction is estimated at 65-70 %. Normal diastolic function. 2. Moderate pulmonary hypertension with pulmonary artery pressure estimated at 53 mm Hg. 3. Moderate aortic valve regurgitation. 4. Mild to moderate mitral valve regurgitation. 5. No prior similar studies to compare. Elizabeth Cade MD (Electronically Signed) Final Date: 16 March 2020 20:37 S
--- NOTE | 2020-03-16 08:21 | PM.PN ---
Subjective Subjective: Interval history: Chart reviewed, had 1700 mL urine output overnight, afebrile, hypotensive this AM, on 2 L NC, off pressor support and Cardizem drip. On vanc, Primaxin. Urine cx growing GNRs. Sitting in chair by bedside, very pleasant, no complaints currently. Will transfer to the floor for continued care which he is agreeable to. Medications: Reviewed: Yes Medication Review Details: Active Medications Generic Name Dose Route Start Last Admin Trade Name Freq PRN Reason Stop Dose Admin Acetaminophen 650 mg 03/14/20 00:43 Tylenol PO Q6H PRN Pain Apixaban 5 mg 03/15/20 09:00 03/15/20 18:19 Eliquis PO 5 mg BID KASEY Administration Atorvastatin Calci um 20 mg 03/14/20 21:00 03/15/20 20:27 Lipitor PO 20 mg BEDTIME KASEY Administration Baclofen 10 mg 03/14/20 09:00 03/15/20 20:27 Lioresal PO 10 mg TID KASEY Administration Bisacodyl 10 mg 03/14/20 00:43 Bisac-Evac [place] DAILY PRN Constipation Norepinephrine Bit artrate 4 mg 254 mls @ 0 mls/h r 03/14/20 00:30 03/14/20 15:07 / Dextrose IV 0 mcg/min .Q0M KASEY 0 mls/hr Titration Protocol Per Protocol Sodium Chloride 1,000 mls @ 75 ml s/hr 03/14/20 01:00 03/15/20 20:02 Sodium Chloride 0.9% IV 75 mls/hr .[id number] KASEY Administration Vancomycin HCl 1,0 00 mg/ 250 mls @ 250 mls /hr 03/14/20 14:00 03/16/20 02:25 Sodium Chloride IV 250 mls/hr Q18H KASEY Administration Protocol Imipenem/Cilastati n Sodium 250 100 mls @ 200 mls /hr 03/15/20 07:30 03/16/20 07:55 mg/ Sodium Chlor nathalie IV 200 mls/hr Q6H KASEY Administration Diltiazem HCl 125 mg/ Sodium 125 mls @ 0 mls/h r 03/15/20 04:15 03/15/20 14:30 Chloride IV 0 mg/hr .Q0M KASEY 0 mls/hr Titration Protocol Per Protocol Latanoprost 1 drop 03/14/20 00:43 03/15/20 20:32 Xalatan EYE-BOTH 1 drop BEDTIME KASEY Administration Magnesium Hydroxid e 30 ml 03/14/20 00:43 Milk Of Magnesia PO DAILY PRN Constipation Memantine 10 mg 03/14/20 09:00 03/15/20 18:19 Namenda PO 10 mg BID KASEY Administration Morphine Sulfate 2 mg 03/14/20 00:43 Morphine IVP Q6H PRN pain Pantoprazole Sodiu m 40 mg 03/14/20 12:50 03/15/20 08:23 Protonix IVP 40 mg DAILY KASEY Administration Sertraline HCl 100 mg 03/14/20 21:00 03/15/20 20:27 Zoloft PO 100 mg BEDTIME KASEY Administration Sodium Phosphate 133 ml 03/14/20 00:43 Fleet Enema [place] DAILY PRN Constipation Tamsulosin HCl 0.4 mg 03/14/20 21:00 03/15/20 20:27 Flomax PO 0.4 mg BEDTIME KASEY Administration Penicillins Allergy (Verified 03/13/20 20:49) Unknown Vitals/I&O/Wt Last Vital Signs Temp 99.1 F 03/16/20 04:50 Pulse 77 03/16/20 07:58 Resp 24 H 03/16/20 07:58 BP 87/56 03/16/20 07:58 Pulse Ox 92 03/16/20 07:58 03/15/20 03/16/20 03/16/20 22:59 06:59 14:59 Intake Total 1888.75 / 3468.00 500 / 3968.00 Output Total 750 / 2225 1700 / 3925 Balance 1138.75 / 1243.00 -1200 / 43.00 Weight last 48 hrs Weight 61.235 kg Weight 59.375 kg Physical Exam Const: COMMON NORMALS: no acute distress, patient oriented x3 and alert GENERAL APPEARANCE: cooperative, comfortable and frail appearing NUTRITIONAL APPEARANCE: thin ORIENTATION/CONSCIOUSNESS: Yes awake HENMT: COMMON NORMALS: normocephalic, atraumatic, hearing grossly normal bilaterally and moist oral mucous membranes HEAD & SCALP: normocephalic and atraumatic Eye: COMMON NORMALS: Equal, round and reactive pupils present, EOMs intact bilaterally and conjunctivae normal CONJUNCTIVA: Yes conjunctivae normal PUPIL: Yes Equal, round and reactive pupils present Neck/C-Spine: COMMON NORMALS: full ROM GENERAL: Yes normal visual inspection and Yes trachea midline Resp: COMMON NORMALS: normal respiratory effort, No retractions, No use of accessory muscles and clear to auscultation bilaterally EFFORT & INSPECTION: Yes able to speak in complete sentences, Yes symmetric chest movement and No tachypneic AUSCULTATION: clear to auscultation bilaterally Cardio: COMMON NORMALS: regular rate, regular rhythm, S1 normal heart sound present, S2 normal heart sound present and No murmurs present (Cardio) RATE: regular rate RHYTHM: regular rhythm HEART SOUNDS: S1 normal heart sound present and S2 normal heart sound present GI: COMMON NORMALS: Normal to inspection, nondistended, normoactive bowel sounds present, Soft to palpation and non-tender PALPATION: Yes Soft to palpation : BLADDER/KIDNEY EXAM: Yes catheter in place Catheter type (Male): urethral Extremity: COMMON NORMALS: normal to inspection, full ROM and no clubbing, cyanosis or edema; negative for no pedal edema Neuro: COMMON NORMALS: patient oriented x3, moves all extremities, no focal motor deficits and no sensory deficits noted SENSORIUM/ORIENTATION: Yes alert Psych: COMMON NORMALS: mental status grossly normal, Normal thought process present, cooperative, normal affect and speech normal SPEECH: Yes normal speech THOUGHT PROCESS: Normal thought process present Skin: COMMON NORMALS: no rashes or lesions noted, no jaundice, no petechiae and no mottling GENERAL SKIN EXAM: no rashes or lesions noted Urinary Catheter Management^: Mueller: Cath Placed During This Visit: yes Reason for Continuing Indwelling Catheter: Chronic Indwelling Urinary Catheter on Admission Urinary Catheter Date of Insertion: 03/13/20 Urinary Catheter Time of Insertion: 20:51 Data : 03/16/20 02:56 03/16/20 02:56 Micro: Microbiology 03/13/20 20:57 Urine Culture - Preliminary Urine Catheterized Gram Negative Rods A&P Assessment and plan (1) Sepsis: -sepsis as evidenced by leukocytosis, hypotension, fever -weaned off pressor support, on IVF and boluses as needed -hypotensive this AM, afebrile, continue to monitor vital signs -telemetry monitoring -sepsis secondary to UTI and pneumonia -noted encephalopathy superimposed on underlying dementia; re-orient as needed -leukocytosis resolved -on Vanc, Primaxin -blood cx: prelim negative -urine cx: Pseudomonas aeruginosa, sensitivity noted Status: Acute Qualifiers: Sepsis acute organ dysfunction status: with acute organ dysfunction Sepsis type: sepsis due to unspecified organism Severe sepsis acute organ dysfunction type: encephalopathy Severe sepsis shock status: without septic shock Qualified Code(s): A41.9 - Sepsis, unspecified organism; R65.20 - Severe sepsis without septic shock; G93.40 - Encephalopathy, unspecified (2) Atrial fibrillation: -appears to be new onset -telemetry monitoring -received Amiodarone, digoxin, cardizem drip -on AC with Eliquis -Echo: EF=65-70%, no RWMA, mild-moderate MR, moderate AR, mild TR, mild WA, moderate pulmonary HTN -rate controlled Status: Acute Qualifiers: Atrial fibrillation type: unspecified Qualified Code(s): I48.91 - Unspecified atrial fibrillation (3) Pneumonia: -imaging noted -on abx -supplemental oxygen as needed -continue to monitor respiratory status -blood cx: negative -bacterial antigens, Legionella negative Status: Acute Qualifiers: Laterality: left Lung location: lower lobe of lung Pneumonia type: due to unspecified organism Qualified Code(s): J18.9 - Pneumonia, unspecified organism (4) Acute UTI: -UA indicative of infection -urine cx: Pseudomonas aeruginosa, sensitivity noted -on abx -has Mueller catheter secondary to chronic urinary incontinence; continue to monitor urine output Status: Acute (5) Compression fracture: -noted T12 compression fracture on imaging -pain control as needed Status: Acute (6) History of multiple sclerosis: -known hx of MS; meds on hold due to infection Status: Chronic Additional A&P Information -cardiac diet as tolerated -at least moderate protein calorie malnutrition: BMI-18 kg/m2 -GI ppx with PPI -DVT ppx not needed as on Eliquis -Dispo: return to [facility] -Code status: FULL code Attestations Medical Necessity Statement*: Patient requires hospitalization for continued IV antibiotic treatment for UTI, pneumonia, switch to oral antibiotics. Time Spent in Patient Care: Greater than 35 minutes (>than 50% of time spent in counselling and/or direct pt care on unit). 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
[2020-03-16] MEDS: pantoprazole DR 40 mg Tablet PO (09:03)
[2020-03-16] MEDS: apixaban 5 mg Tablet PO ×2 (09:03→16:44)
[2020-03-16] MEDS: memantine 5 mg tablet 10 MG PO ×2 (09:04→16:44)
[2020-03-16] MEDS: baclofen 10 mg Tablet PO ×3 (09:04→20:33)
--- NOTE | 2020-03-16 11:47 | DCPLANNER ---
Pg 2 of IM updated and attempted review with pt. He nods and expresses that he understands, very polite. Copy provided.
--- NOTE | 2020-03-16 13:05 | PC.NURSE ---
Report faxed to [employer].
--- NOTE | 2020-03-16 13:08 | PC.NURSE ---
, Dorcas, [facility]
--- NOTE | 2020-03-16 13:35 | PC.NURSE ---
Report given to JONATHON Garcia, [facility].
--- NOTE | 2020-03-16 13:50 | PC.NURSE ---
Pt transferred to [facility]- via W/C. All belongings with pt. Further update provided to JONATHON Crowder and JONATHON Kam.
[2020-03-16] MEDS: atorvastatin 40 mg Tablet 20 MG PO (20:33)
[2020-03-16] MEDS: latanoprost 0.005% Op Soln 2.5 mL Btl 1 DROP EYE-BOTH (22:07)
[2020-03-16] MEDS: tamsulosin 0.4 mg Capsule PO (22:11)
[2020-03-16] MEDS: sertraline 100 mg Tablet PO (22:11)
[2020-03-17 03:22] VITALS: BP 103/51; PULSE 59; RESP 20; TEMP 37.2; O2SAT 93
[2020-03-17 04:59] LABS: Basophils % 0.3 %; Eosinophils # 0.1 10^3/uL (0.0-0.8); Eosinophils % 1.1 %; Hematocrit 31.3 % (42.0-52.0); Hemoglobin 9.8 g/dL (11.7-16.6); Lymphocytes % 13.4 %; Mean Corpuscular HGB Conc 31.3 g/dL (30.0-36.0); Mean Corpuscular Hemoglobin 30.1 pg (28.0-34.0); Monocytes # 0.9 10^3/uL (0.2-0.9); Monocytes % 11.7 %; Neutrophils # 5.41 10^3/uL (1.8-7.7); Neutrophils % 73.2 %; Nucleated Red Blood Cells % 0 %; Platelet Count 164 10^3/cmm (130-400); Red Blood Count 3.26 10^6/uL (4.1-5.3); Red Cell Distribution Width 12.6 % (12.1-15.1); White Blood Count 7.4 10^3/uL (4.0-10.0)
--- NOTE | 2020-03-17 05:32 | PC.NURSE ---
SHIFT SUMMARY Quiet night without c/o or distress. Is oriented to person only. Is able to tell me his birthday but not how old he is. Is pleasant and cooperative. Has been repositioned through shift. Legs with contractures and stiff. Very good urine output from Mueller tonight.
[2020-03-17 05:33] LABS: Alanine Aminotransferase 17 U/L (0-41); Albumin Level 2.4 g/dL (3.5-5.2); Alkaline Phosphatase 100 IU/L (40-130); Anion Gap 8.3 (5-19); Aspartate Amino Transferase 16 U/L (0-40); Blood Urea Nitrogen 11 mg/dL (8-23); Calcium 8.4 mg/dL (8.5-10.5); Carbon Dioxide 30 mmol/L (22-29); Chloride 106 mmol/L (98-107); Globulin 2.9 g/dL (1.3-4.6); Glucose 96 mg/dL (65-115); Magnesium 2.1 mg/dL (1.7-2.3); Osmolality Calculated 286 mOsm/kg (285-295); Phosphorus 3.1 mg/dL (2.5-4.5); Potassium 4.3 mmol/L (3.5-5.1); Sodium 140 mmol/L (136-145); Total Bilirubin 0.3 mg/dL (0.15-1.2); Total Protein 5.3 g/dL (6.6-8.7)
[2020-03-17] MEDS: levoFLOXacin 750 mg Tablet PO (06:00)
[2020-03-17 07:00] VITALS: BP 105/52; PULSE 60; RESP 20; TEMP 37.3; O2SAT 93
[2020-03-17] MEDS: memantine 5 mg tablet 10 MG PO (08:18)
[2020-03-17] MEDS: metoprolol tartrate 25 mg Tablet 12.5 MG PO (08:18)
[2020-03-17] MEDS: baclofen 10 mg Tablet PO (08:18)
[2020-03-17] MEDS: apixaban 5 mg Tablet PO (08:18)
[2020-03-17] MEDS: pantoprazole DR 40 mg Tablet PO (08:22)
[2020-03-17 11:05] VITALS: BP 94/68; PULSE 71; RESP 18; TEMP 36.6; O2SAT 93
[2020-03-17 15:00] VITALS: BP 104/68; PULSE 70; RESP 18; TEMP 36.4; O2SAT 98
--- NOTE | 2020-03-17 15:26 | P.DS_ITS ---
Discharge Providers Date of Admission: 03/13/20 22:56 Date of Discharge: March 17, 2020 Attending Provider at Admission: Pedro Pablo Keen MD Attending Provider at Discharge: Rima Lr MD Consults: None Primary Care Provider: Parmjit Sanchez MD Diagnoses at Discharge Discharge Diagnosis (1) Sepsis: Status: Resolved Problem details: -sepsis as evidenced by leukocytosis, hypotension, fever; initially had septic shock due to noted encephalopathy. Now resolved -weaned off pressor support, on IVF and boluses as needed -hypotensive this AM, afebrile, continue to monitor vital signs -telemetry monitoring -sepsis secondary to UTI and pneumonia -noted encephalopathy superimposed on underlying dementia; re-orient as needed -leukocytosis resolved -on Vanc, Primaxin -blood cx: prelim negative -urine cx: Pseudomonas aeruginosa, sensitivity noted Qualifiers: Sepsis acute organ dysfunction status: with acute organ dysfunction Sepsis type: sepsis due to unspecified organism Severe sepsis acute organ dysfunction type: encephalopathy Severe sepsis shock status: without septic shock Qualified Code(s): A41.9 - Sepsis, unspecified organism; R65.20 - Severe sepsis without septic shock; G93.40 - Encephalopathy, unspecified (2) Atrial fibrillation: Status: Acute Problem details: -appears to be new onset -telemetry monitoring -received Amiodarone, digoxin, cardizem drip; now on low dose BB -on AC with Eliquis -Echo: EF=65-70%, no RWMA, mild-moderate MR, moderate AR, mild TR, mild IA, moderate pulmonary HTN -rate controlled Qualifiers: Atrial fibrillation type: unspecified Qualified Code(s): I48.91 - Unspecified atrial fibrillation (3) Pneumonia: Status: Acute Problem details: -imaging noted -on abx -supplemental oxygen as needed -continue to monitor respiratory status -blood cx: negative -bacterial antigens, Legionella negative Qualifiers: Laterality: left Lung location: lower lobe of lung Pneumonia type: due to unspecified organism Qualified Code(s): J18.9 - Pneumonia, unspecified organism (4) Acute UTI: Status: Acute Problem details: -UA indicative of infection -urine cx: Pseudomonas aeruginosa, sensitivity noted -on abx -has Mueller catheter secondary to chronic urinary incontinence; continue to monitor urine output (5) Compression fracture: Status: Acute Problem details: t11-t12 (6) History of multiple sclerosis: Status: Chronic Problem details: -known hx of MS; meds on hold due to infection Other Information Additional DC diagnoses/information: -at least moderate protein calorie malnutrition: BMI-18 kg/m2 Reason for Visit Reason for Visit: FEVER Hospital Course Hospital Course: Patient is unfortunately a readmission to our facility following a previous prolonged hospitalization during which time he was found to have a mild T12 vertebral compression fracture, treated for UTI and found to have urinary retention requiring Mueller catheter placement. He returned to our facility about 2 weeks later due to fever and was found to have septic shock secondary to UTI and pneumonia. He was admitted to ICU where he was treated with IV fluids, pressor support, broad-spectrum IV antibiotics with close monitoring of his hemodynamic status. Mueller catheter was changed in the ER. He was found to have some altered mental status likely secondary to underlying infection with associated sepsis. With continued treatment his hemodynamic status stabilized and we were able to discontinue pressor support. He did develop A. fib with RVR requiring Cardizem drip, digoxin and amiodarone. He has since converted to normal sinus rhythm and has been maintained on low-dose beta- carol. IV fluid hydration has been discontinued as well, mentation has returned to baseline, he has consistently been afebrile and leukocytosis has resolved. Blood cultures have been negative, urine cultures have grown pseudomonas aeruginosa and he has been switched to oral antibiotics per sensitivity. He is on anticoagulation with Eliquis which is to be continued on discharge. Echo was done with noted ejection fraction of 65 to 70%. He is to be discharged back to the nursing facility. Due to noted change in mental status he was evaluated by therapy including speech therapy with recommendation made for dysphagia diet. He is to continue aspiration precautions and modified diet as noted below. He will need continued follow-up with his primary care physician. Due to acute infection he is medications for multiple sclerosis were held avoid further immunocompromise and to allow for appropriate recovery from infection. Patient can resume this medications once he has completed his antibiotic course. Discharge Summary: -Patient to follow-up with primary care provider within 1 week -Patient is to continue dysphagia diet with aspiration precautions Physical Exam Const: COMMON NORMALS: no acute distress, patient oriented x3 and alert GENERAL APPEARANCE: cooperative, comfortable and frail appearing NUTRITIONAL APPEARANCE: thin ORIENTATION/CONSCIOUSNESS: Yes awake HENMT: COMMON NORMALS: normocephalic, atraumatic, hearing grossly normal bilaterally and moist oral mucous membranes HEAD & SCALP: normocephalic and atraumatic Eye: COMMON NORMALS: Equal, round and reactive pupils present, EOMs intact bilaterally and conjunctivae normal CONJUNCTIVA: Yes conjunctivae normal PUPIL: Yes Equal, round and reactive pupils present Neck/C-Spine: COMMON NORMALS: full ROM GENERAL: Yes normal visual inspection and Yes trachea midline Resp: COMMON NORMALS: normal respiratory effort, No retractions, No use of accessory muscles and clear to auscultation bilaterally EFFORT & INSPECTION: Yes able to speak in complete sentences, Yes symmetric chest movement and No tachypneic AUSCULTATION: clear to auscultation bilaterally Cardio: COMMON NORMALS: regular rate, regular rhythm, S1 normal heart sound present, S2 normal heart sound present and No murmurs present (Cardio) RATE: regular rate RHYTHM: regular rhythm HEART SOUNDS: S1 normal heart sound present and S2 normal heart sound present GI: COMMON NORMALS: Normal to inspection, nondistended, normoactive bowel sounds present, Soft to palpation and non-tender PALPATION: Yes Soft to palpation : BLADDER/KIDNEY EXAM: Yes catheter in place Extremity: COMMON NORMALS: normal to inspection, full ROM and no clubbing, cyanosis or edema; negative for no pedal edema Neuro: COMMON NORMALS: patient oriented x3, moves all extremities, no focal motor deficits and no sensory deficits noted SENSORIUM/ORIENTATION: Yes alert Psych: COMMON NORMALS: mental status grossly normal, Normal thought process present, cooperative, normal affect and speech normal SPEECH: Yes normal speech THOUGHT PROCESS: Normal thought process present Skin: COMMON NORMALS: no rashes or lesions noted, no jaundice, no petechiae and no mottling GENERAL SKIN EXAM: no rashes or lesions noted Urinary Catheter Management^: Mueller: Cath Placed During This Visit: yes Reason for Continuing Indwelling Catheter: Chronic Indwelling Urinary Catheter on Admission Urinary Catheter Date of Insertion: 03/13/20 Urinary Catheter Time of Insertion: 20:51 Discharge Data Data Completed and Pending: Completed Studies During Hospitalization Category Date Time Status CT chest abd pel wo con Stat Cat Scan 03/14/20 07:45 Completed XR chest 1V em ble [id number] Stat Exams 03/13/20 20:19 Completed CV echo complete* [id number] Routine Ultrasound 03/16/20 08:21 Completed Pending at discharge Category Date Time Status Blood Culture Sta t Lab 03/13/20 20:37 Results Labs from last 24 hours 03/17/20 03/17/20 04:35 04:35 WBC 7.4 RBC 3.26 L Hgb 9.8 L Hct 31.3 L MCV 96.0 H MCH 30.1 MCHC 31.3 RDW 12.6 Plt Count 164 MPV 10.0 Neut % (Auto) 73.2 Lymph % (Auto) 13.4 [place] % (Auto) 11.7 Eos % (Auto) 1.1 Baso % (Auto) 0.3 Neut # (Auto) 5.41 Lymph # (Auto) 1.0 [place] # (Auto) 0.9 Eos # (Auto) 0.1 Baso # (Auto) 0.0 Nucleated RBC % (a uto) 0 Nucleated RBCs # 0.0 Sodium 140 Potassium 4.3 Chloride 106 Carbon Dioxide 30 H Anion Gap 8.3 BUN 11 Creatinine 1.0 GFR Calculation Not Reportable Glucose 96 Calculated Osmolal ity 286 Calcium 8.4 L Phosphorus 3.1 Magnesium 2.1 Total Bilirubin 0.3 AST 16 ALT 17 Alkaline Phosphata se 100 Total Protein 5.3 L Albumin 2.4 L Globulin 2.9 Vitals: Last Vital Signs Temp 97.6 F 03/17/20 15:00 Pulse 70 03/17/20 15:00 Resp 18 03/17/20 15:00 BP 104/68 03/17/20 15:00 Pulse Ox 98 03/17/20 15:00 Discharge Plan Discharge Patient Disposition: Xfer SNF Condition: Stable Prescriptions: New pantoprazole 40 mg Tablet,Delayed Release (Dr/Ec) 40 mg PO DAILY 30 Days Qty: 30 RF: 0 levofloxacin 750 mg Tablet 750 mg PO DAILY Qty: 7 RF: 0 metoprolol tartrate 25 mg Tablet 12.5 mg PO BID 30 Days Qty: 30 RF: 0 Eliquis 5 mg Tablet 5 mg PO BID 30 Days Qty: 60 RF: 0 Continued memantine 10 mg tablet 10 mg PO BID Qty: 180 RF: 1 baclofen 10 mg tablet 10 mg PO TID Qty: 270 RF: 1 dalfampridine [Ampyra] 10 mg tablet extended release 12 hr 10 mg PO Q12H Qty: 180 RF: 3 Tylenol 325 mg Tablet 650 mg PO Q6H PRN (Reason: Pain) RF: 0 Triad Wound Dressing Paste See Rx Instructions .ROUTE .COMPLEX RF: 0 Milk of Magnesia 400 mg/5 mL Suspension 30 ml PO DAILY PRN (Reason: Constipation) RF: 0 Dulcolax (bisacodyl) 10 mg Suppository 10 mg [place] DAILY PRN (Reason: Constipation) RF: 0 Fleet Enema 19-7 gram/118 mL Enema 118 ml IA DAILY PRN (Reason: Constipation) RF: 0 Dulcolax (bisacodyl) 5 mg Tablet,Delayed Release (Dr/Ec) 10 mg PO DAILY PRN (Reason: Constipation) RF: 0 Vitamin D3 25 mcg (1,000 unit) Capsule 25 mcg PO DAILY RF: 0 sertraline 100 mg tablet 100 mg PO BEDTIME RF: 0 tamsulosin 0.4 mg capsule 0.4 mg PO BEDTIME RF: 0 latanoprost 0.005 % drops 1 drp ophthalmic (eye) BEDTIME RF: 0 glatiramer [Glatopa] 40 mg/mL syringe See Rx Instructions .ROUTE .COMPLEX RF: 0 Changed atorvastatin 10 mg tablet 20 mg PO BEDTIME Qty: 60 RF: 0 Discharge Orders: Discharge Order (Routine); Ordered 03/17/20 Ordered By: Rima Lr Referrals: Parmjit Sanchez MD [Primary Care Provider] - 03/26/20 8:30 am Discharge Diet: As Directed Discharge Activity: Increase activity as tolerated Activity Restrictions/Additional Instructions: -Patient is continued high fall risk so should continue fall precautions -Please continue dysphagia diet with aspiration precautions Discharge Date/Time: 03/17/20 16:30 Discharge Attestations Time Spent in Discharge Care*: less than 30 min Specific Discharge Activities: Specific discharge activities: educating patient, discussing with case reviewer/social workers/dc planners, documenting/other paperwork and evaluating patient/reviewing data Status at Discharge: Cognitive status at discharge: mildly impaired cognition , Behavioral status at discharge: cooperative and dependent in ADL's , Overall status at discharge: patient is progressing back to baseline Quality Metrics Clinical Quality Measures During this hospital stay, did patient experience: None Coding Level of Care Code Acute 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
--- NOTE | 2020-03-17 16:16 | PC.NURSE ---
Report called to Judith HOLT at [facility] at this time.
[2020-03-17 16:18] VITALS: BP 104/68; PULSE 70; RESP 18; TEMP 36.4; O2SAT 98
--- NOTE | 2020-03-17 16:35 | PC.NURSE ---
Patient picked up at this time to transport patient back to [facility]. Patient Mueller is in place and sent back to the assisted with him. IV removed intact. Patient is alert to self. Respirations even and non-labored on room air.
== END 2020-03-17 16:30 | disposition skilled nursing facility (03) | DRG 871 ==
LOC: ER 23:22 → MEDSURG 23:24 → ICU 03-14 00:29 → MEDSURG 03-16 13:47
PROVIDERS: Emergency Medicine; Family Medicine; Admitting Provider Internal Medicine; PCP Family Medicine; Visit Provider Family Medicine
DX: A41.9 Sepsis, unspecified organism (principal); J18.9 Pneumonia, unspecified organism; F05 Delirium due to known physiological condition; G93.40 Encephalopathy, unspecified; N39.0 Urinary tract infection, site not specified; E44.0 Moderate protein-calorie malnutrition; Z68.1 Body mass index [BMI] 19.9 or less, adult; M48.54XA Collapsed vertebra, not elsewhere classified, thoracic region, initial encounter for fracture; I48.91 Unspecified atrial fibrillation; Z86.69 Personal history of other diseases of the nervous system and sense organs; Y95 Nosocomial condition; R65.20 Severe sepsis without septic shock; Z79.01 Long term (current) use of anticoagulants; G35 Multiple sclerosis; F32.9 Major depressive disorder, single episode, unspecified; K21.9 Gastro-esophageal reflux disease without esophagitis; E78.5 Hyperlipidemia, unspecified; Z87.891 Personal history of nicotine dependence
CPT/HCPCS: 12345; 36415; 36416; 51702; 71045; 71250; 74176; 80048; 80053; 80202; 81001; 82533; 82607; 82962; 83605; 83735; 84100; 84145; 84484; 85025; 86140; 86403; 87040; 87077; 87086; 87186; 87449; 93005; 93306; 96372; 96375; 99284; C9113; J0692; J0696; J0743; J1160; J1265; J1650; J2405; J3370; J3490; J7030; J7050

== ENCOUNTER → 2020-03-31 14:23 | Outpatient (BNVA) | payer MEDICARE, SELFPAY | PROVIDERS: Family Provider Family Medicine; PCP Family Medicine; Visit Provider Specialist | DX: G35 Multiple sclerosis (principal); Z87.891 Personal history of nicotine dependence | CPT/HCPCS: 99215 ==